=== PATIENT | male | born 1940 | race Caucasian/White ===

== ENCOUNTER → 2020-05-12 09:56 | Outpatient (REF) | payer MEDICARE, SELFPAY | LOC: HO.SL 09:56 | PROVIDERS: Visit Provider Internal Medicine | DX: G47.33 Obstructive sleep apnea (adult) (pediatric) (principal) | CPT/HCPCS: 95806 ==

== ENCOUNTER 2020-08-04 08:34 | Outpatient (REF) | payer MEDICARE, SELFPAY ==
[2020-08-04 10:05] LABS: Blood Urea Nitrogen 15 mg/dL (9-16); Estimated Glomerular Filt Rate > 60
[2020-08-04 10:37] LABS: Folate > 20.0 ng/mL (> or = 4.0); Vitamin B12 400 pg/mL (200-900)
== END 2020-08-04 08:35 | disposition home or self-care (01) ==
LOC: HO.LAB 08:34
PROVIDERS: PCP Internal Medicine; Visit Provider Psychiatry & Neurology Neurology
DX: G31.84 Mild cognitive impairment of uncertain or unknown etiology (principal)
CPT/HCPCS: 36415; 82565; 82607; 82746; 84520

== ENCOUNTER 2020-08-05 08:03 | Outpatient (REF) | payer MEDICARE, SELFPAY ==
--- NOTE | ~2020-08-05 | MR_ITS ---
EXAMINATION: MRI OF THE HEAD/ BRAIN WITHOUT CONTRAST CLINICAL INFORMATION: Mild cognitive impairment. COMPARISON: None TECHNIQUE: Routine unenhanced MRI of the brain. FINDINGS: Moderate diffuse commensurate prominence of ventricles and sulci is noted along with mild-moderate periventricular and subcortical white matter patchy T2 hyperintensities present in a nearly confluent configuration along the bodies of the lateral ventricles. No intracranial hemorrhage, tumors or acute infarcts are visualized. The Pickering ratio and callosal angle are within normal limits. No disproportionate prominence of the temporal horns of the lateral ventricles is identified. Susceptibility weighted images reveal no evidence of acute or chronic hemorrhage within the brain parenchyma. Normal flow-related signal intensity is visualized in the major intracranial vessels and dural sinuses. A right ocular lens extraction is identified. The craniocervical junction cerebellar tonsils are normal in configuration. No suspicious marrow abnormalities are noted. MR/MR head/brain wo con IMPRESSION: Mild white matter chronic small vessel ischemic changes. No evidence of significant chronic small vessel ischemic disease, normal pressure hydrocephalus or qualitative neurodegenerative hippocampal volume loss.
== END 2020-08-05 08:04 | disposition home or self-care (01) ==
LOC: HO.MRI 08:03
PROVIDERS: Visit Provider Psychiatry & Neurology Neurology
DX: G31.84 Mild cognitive impairment of uncertain or unknown etiology (principal)
CPT/HCPCS: 70551

== ENCOUNTER 2024-07-17 13:52 | Outpatient (AMB) | payer MEDICARE, SELFPAY ==
--- NOTE | 2024-07-17 13:53 | A.SPINEOV_ITS ---
Vital Signs 07/17/24 14:01 Height 5 ft 8 in Weight 150 lb BMI 22.8 Intake Visit Reasons: LBP Intake Note: Mr. Boland is here today c/o low back pain. [employer] Required: No Allergies No Known Allergies Allergy (Verified 07/17/24 14:02) Assessment & Plan Assessment & Plan (1) Lumbar stenosis with neurogenic claudication: Code(s): M48.062 - Spinal stenosis, lumbar region with neurogenic claudication Category: Medical Plan Dear colleague Thank you for referring Forest Boland to the office today with a chief complaint of right leg pain. HPI: This 83-year-old male was in excellent health until approximately 3 months ago when he developed debilitating pain from the right side of his back radiating to his thigh and jolyl. The pain comes with walking and standing and improves when he sits down or lays down. The pain is associated with tingling and numbness that disappear when he sits down. He denies weakness. Occasionally, he also has left-sided knee pain with standing and walking. He has been ambulating with a cane since a month as he noted that leaning forward provides relief. He tried Tylenol and Aleve without success. He had 2 epidural steroid injection that provided no relief. He was referred by pain management to discuss surgical decompression for symptoms of spinal stenosis. PMH: TIA 2 years ago, myasthenia gravis, osteopenia Medications: Pyridostigmine, prednisone, atorvastatin, tamsulosin, vitamin-D and calcium, fish oil, Metamucil, Tylenol, Aleve, baby aspirin Allergies: NKDA Social history: for 58 years. Nonsmoker Physical Exam: Pleasant male. He stands in a flexed position in the office. He can reproduce the right leg symptoms after 2 minutes of standing. There are no motor deficits or sensory deficits. No pathological reflexes. Radiological Studies: MRI done at [facility] on 06/06/2024 shows severe L3-4 central spinal stenosis and moderate L2-3 spinal stenosis. In addition there is [id number] left L5 foraminal stenosis and multilevel degenerative disc disease. Impression/Plan: This 83-year-old male is suffering predominantly from unilateral neurogenic claudication on the right side. The pain distribution fits the L3-4 level where severe spinal stenosis is present. This patient is an excellent candidate for a lumbar decompression L3-4, right-sided approach. I would also include the L2-3 region to address the moderate radiological stenosis. I discussed the procedure and expected outcome and he wants to proceed. He is scheduled for 08/22/2024. He will discontinue leave and baby aspirin 1 week prior to surgery. He will also discontinue his fish oil. Recently had a cardiac ultrasound of which we will obtain the report. This study was normal per patient. He will also get a preoperative clearance from his primary care physician. Thank you for allowing me to participate in your patients care. total time spent was 50 minutes in counseling ,coordination of plan, personal review of imaging, surgical decision making and subsequent plan Giuliano Sanchez MD, PhD [facility] Trained Neurosurgeon Director, [facility] Coding Level of Care Code New Pt Level 4 (83821) Diagnoses Lumbar stenosis with neurogenic claudication M48.062
[2024-07-17 14:01] VITALS: BMI 22.8
--- OUTSIDE RECORDS SUMMARY | 2024-07-17 16:27 | XMS_ITS | Clinical Summary ---
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 Active aspirin 81 mg EC tablet 1 TABLET DAILY Activ e predniSONE (DELTASONE) 1 mg tablet Take 2 tablets (2 mg total) by mouth 1 (one) time each day. Active MULTIVITAMIN ORAL qd Active calcium carbonate/kai min D3 (CALCIUM + D ORAL) qd Active DULoxetine (CYMBALTA) [address] capsule Take 1 capsule (20 mg total) by mouth 1 (one) time each day. Do not crush or chew. Active atorvastatin (LIPITOR) 10 mg tablet Take 1 tablet (10 mg total) by mouth at bedtime. 90 tablet 1 06/17/19 25 Active tamsulosin (FLOMAX) 0.4 mg 24 hr capsule TAKE 1 CAPSULE DAILY, 30 MINUTES AFTER SAME MEAL EVERY DAY 90 capsule 07/11/19 25 Active Additional Information Patient not taking.Reported on 07/15/2024 tamsulosin (FLOMAX) 0.4 mg 24 hr capsule TAKE 1 CAPSULE DAILY, 30 MINUTES AFTER SAME MEAL EVERY DAY 90 capsule 04/12/20 24 025 Discontinued buprenorphine (BUTRANS) 15 mcg/hour Place 1 patch on the skin 1 (one) time per week. Max Daily Amount: 1 patch 025 Discontinued Active Problems Problem Noted Date Diagnosed Date TIA (transient ischemic attack) 04/10/2024 Assessment & Plan (04/10/2024 10:09 AM EST): Given the very short duration of his symptoms and negative workup in the ER, lower suspicion for a true TIA but I would like to get the opinion of his neurologist. I will request records from his most recent neurology notes which unfortunately I am unable to visualize on the current EMR. If TIA suspicion is high, it might be worth doing further workup with at least a 30-day R OCT looking for occult arrhythmias. I would also inquire with his neurologist about whether or not to upgrade him to monotherapy with Plavix and increase statin dose. Thankfully he has not had any recurrent symptoms. Mixed hyperlipidemia 04/10/2024 Assessment & Plan (04/10/2024 10:09 AM EST): Most recent lipid panel indicates good cholesterol control on low-dose simvastatin but triglycerides are elevated, continue omega-3 supplements and continue to modify diet-observe a low refined carbohydrate, low sugar diet, continue regular aerobic exercise Elevated blood-pressure read ing without diagnosis of hypertension 11/23/2022 Overview (02/23/2024): On my recheck, the patient had improvement. He reports blood pressures at home are on the average in the 120 systolic with normal diastolics. Continue to monitor. Assessment & Plan (04/10/2024 10:09 AM EST): Orders: ECG 12 lead Moderate aortic stenosis 09/08/2022 Overview (02/23/2024): - Echocardiogram performed for atypical chest pain and murmur on 08/26/2022 showed mild, concentric left ventricular hypertrophy with hyperdynamic LV systolic function and normal regional wall motion, normal LV cavity size, ejection fraction 65 to 70%, normal RV size and systolic function, moderate aortic stenosis with calculated aortic valve area of 1.2 cm?? with a dimensionless index of 0.32 and mean gradient of 21 mmHg, normal RV size and systolic function Last Assessment & Plan: The patient is asymptomatic from a cardiovascular standpoint with unchanged moderate aortic stenosis. He recently had a hospitalization for difficulty articulating himself/aphasia that lasted for 30 to 60 seconds. Brain imaging including CT head, CTA head/neck, and MRI brain unremarkable. His echocardiogram is unchanged when compared to 2022. It is Holter monitor showed sinus rhythm. At this point, would defer further workup to the neurology team. Will cancel his echocardiogram planned for November as he just had an updated a couple of weeks ago. Assessment & Plan (04/10/2024 10:09 AM EST): Will plan for updated surveillance echo in 1 month for a yearly routine surveillance. I will follow-up on these results and report any major abnormalities. His valve does not sound severely narrow by exam. Orders: Transthoracic echocardiogram (TTE) complete with PRN contrast, bubble, strain, and 3D order panel; Future Abnormal brain CT 06/23/2022 Neck pain 06/20/2022 Polyp of colon 03/14/2022 Overview (02/23/2024): solitary, GI recommended repaet colonoscopy in 5 years, 2026 Elevated fasting glucose 09/08/2021 Overview (02/23/2024): Borderline 102 mg/dL Last Assessment & Plan: Reviewed the importance of low carbohydrate diet and avoidance of sugary foods Malignant melanoma of skin 09/08/2021 Overview (02/23/2024): [place] derm Ankylosing spondylitis 11/20/2020 Overview (02/23/2024): Notable in cervical and thoracic spine on xray Memory deficits 11/02/2020 BONIFACIO (obstructive sleep apnea) 06/04/2020 Benign non-nodular prostatic hyperplasia without lower urinary tract symptoms 11/07/2016 Occipital neuralgia 08/24/2010 Cervicocranial syndrome 07/19/2010 Degenerative arthritis of cervical spine 010 Anxiety disorder 06/19/2007 Pure hypercholesterolemia 01/04/2007 Overview (02/23/2024): Last Assessment & Plan: Well controlled lipid profile. Continue dietary modification. Myasthenia gravis without exacerbation 6 Overview (02/23/2024): ~ 2004: On prednisone - tapered to 3 times a week follows with Dr. Lopez. Benign neoplasm of colon 11/29/2005 Overview (02/23/2024): Colonoscopy 11.29.05: tubular adenoma times two. Negative colonoscopy 12/08/2008. 7 mm polyp 02/17/2014: Malignant neoplasm of skin 11/24/2005 Overview (02/23/2024): BCC 12/16 right clavicle (nodualr & metatypical type) 05/13 Right leg Left thigh Midback IMO update Encounters Date Type Department Care Team Description 07/15/2024 8:45 AM EDT Office Visit Adult Medicine [address] [phone] Kaitlin Hair MD Weight loss (Primary Dx); Mixed hyperlipidemia; Anxiety disorder, unspecified type; Moderate aortic stenosis; Pure hypercholesterolemia; Osteoarthritis of lumbar spine, unspecified spinal osteoarthritis complication status; Elevated fasting glucose 06/21/2024 11:00 AM EST Ancillary Procedure [facility] [address] [place] [address] [place] [phone] Moderate aortic stenosis 06/12/[address] [phone] Kaitlin Hair MD provider call back 06/10/2024 Telephone Adult [address] [phone] Crispin Tellez PA Request For Order(s); Provider Call Back 06/06/2024 9:42 AM EST - 06/06/2024 11:59 PM EST Hospital Encounter Radiology Department - [address] [phone] Right thigh pain; Ankylosing spondylitis, unspecified site of spine (CMS/HCC); History of melanoma; Chronic low back pain, unspecified back pain laterality, unspecified whether sciatica present Discharge Disposition: Home or Self Care 05/30/2024 11:00 AM EST Office Visit Adult Medicine [address] [phone] Crispin Tellez PA Right thigh pain (Primary Dx); Ankylosing spondylitis, unspecified site of spine ([facility]/HCC); History of melanoma; Chronic low back pain, unspecified back pain laterality, unspecified whether sciatica present 05/16/2024 12:20 PM EST - 05/16/2024 11:59 PM EST Hospital Encounter [address] [phone] Pain of right thigh; Right hip pain Discharge Disposition: Home or Self Care 05/16/2024 12:20 PM EST - 05/16/2024 11:59 PM EST Hospital Encounter [address] [phone] Pain of right thigh; Right hip pain Discharge Disposition: Home or Self Care 05/16/2024 12:15 PM EST - 05/16/2024 11:59 PM EST Hospital Encounter XR - [address] [phone] Pain of right thigh; Right hip pain Discharge Disposition: Home or Self Care 05/16/2024 11:30 AM EST Office Visit Adult [address] [phone] Crispin Tellez PA Pain of right thigh (Primary Dx); Right hip pain 05/03/2024 Telephone Adult Medicine [address] [phone] Kaitlin Hair MD Pain from Last 3 Months Immunizations Name Administration Dates Next Due H1N1 Inj Preservative Free 06/10/2009 Influenza Quadravalent, 0.5m l (Fluzone High-dose) 65yo and older 02/09/2023 Influenza trivalent, 0.5mL ( Fluad) 65yo and older 02/03/2022,01/27/2021,01/22/2020,01/24,01/18/2018,03/03/2017,02/26/2016 Influenza trivalent, 0.5mL, preservative free (Fluarix; FluLaval; Fluzone) ages 6mo and older (Afluria) 3 years and older 03/01/2013,04/02/2012,04/29/2011,01/26,02/22/2008,04/16/2007 Influenza, Unspecified 02/03/2014 Pfizer (ages 12 & older) Biv alent, COVID-19 02/20/2022 Pneumococcal conjugate 13 va lent (Prevnar 13, PCV13) 2mo and older 02/26/2016 Pneumococcal polysaccharide 23 valent (Pneumovax 23) 2yo and older 03/03/2017,04/16/2007 Td Tetanus diptheria (Tdvax) 7yo and older 07/04/2002 Td, Unspecified 07/04/2002 Tdap Tetanus diptheria acell ular pertussis (Boostrix; Adacel) 7yo and older 06/26/2023,04/01/2013 Zoster Live 03/20/2012 Zoster recombinant (Shingrix ) 19yo and older 02/07/2019 Surgical History Surgery Date Site/Laterality Comments OTHER SURGICAL HISTORY PROCEDURE: HISTORICAL MELANOMA COLONOSCOPY 2013 PROCEDURE: HISTORICAL COLONOSCOPY; COMMENT: 7 mm descending colon polyp: tubular adenoma COLONOSCOPY 12/08/2008 PROCEDURE: HISTORICAL COLONOSCOPY; COMMENT: Normal COLONOSCOPY 11/29/2005 PROCEDURE: HISTORICAL COLONOSCOPY; COMMENT: tubular adenoma x 2. COLONOSCOPY 07/25/2018 PROCEDURE: HISTORICAL COLONOSCOPY; COMMENT: 12 mm sigmoid colon polyp; path: tubulovillous adenoma. Medical History Medical History Date Comments Myasthenia gravis without exacerbation (CMS/[facility]) 03/28/2006 DX:Myasthenia gravis without exacerbation (HCC) Historical Medical DX DX:Other a nd unspecified malignant neoplasm of skin of other and unspecified parts of face Anxiety disorder 06/19/2007 DX:Anxiety diso rder Myasthenia gravis without exacerbation (CMS/HCC) 03/28/2006 DX:Myasthenia gravis without exacerbation ([facility]); COMMENT: No meds, follows with Dr. Pham. Osteopenia DX:Osteopenia Ankylosing spondylitis ([facility]) 11/20/2020 DX:Ankylosing spondylitis ([facility]); COMMENT: Notable in cervical and thoracic spine on xray Malignant melanoma of skin ([facility]/HCC) 09/08/2021 DX:Malignant melanoma of skin (HCC) Family History Medical History Relation Name Comments No Known Problems Daughter Other: irregular heart, CHF Father age 90 Other: at age 34-35 fro m heart disease, no details Maternal Grandfather Other: dementia Mother developped a t age 85-86 Heart attack Paternal Grandmother age 75 Autoimmune disease Neg Hx Breast cancer Neg Hx Colon cancer Neg Hx Coronary artery disease Neg Hx Diabetes Neg Hx Heart failure Neg Hx Hyperlipidemia Neg Hx Hypertension Neg Hx Mental illness Neg Hx Prostate cancer Neg Hx Sleep apnea Neg Hx Thyroid disease Neg Hx Relation Name Status Comments Daughter Alive Father Maternal Grandfather Mother Paternal Grandmother Social History Tobacco Use Types Packs/Day Years Used Date Smoking Tobacco: Never Smokeless Tobacco: Never Tobacco Cessation:Counseling Given: Not Answered Alcohol Use Standard Drinks/Week Comments Yes 0 (1 standard drink = 0.6 oz pur e alcohol) Sex and Gender Information Value Date Recorded Sex Assigned at Not on file Legal Sex Male 3:44 AM EST Gender Identity Not on file Sexual Orientation Not on file Obstetrics History Last Filed Vital Signs Vital Sign Reading Time Taken Comments Blood Pressure 132/70 07/15/2024 8:42 AM EDT Pulse 80 07/15/2024 8:42 AM EDT Temperature 35.9 ??C (96.6 ??F) 07/15/2024 8:42 AM ED T Respiratory Rate 20 07/15/2024 8:42 AM EDT Oxygen Saturation 97% 05/30/2024 10:52 AM EST Inhaled Oxygen Concentration - - Weight 73.5 kg (162 lb) 07/15/2024 8:42 AM EDT Height 172.7 cm (5' 8 ) 07/15/2024 8:42 AM EDT Body Mass Index 24.63 07/15/2024 8:42 AM EDT Plan of Treatment Upcoming Encounters Date Type Department Care Team (Late st Contact Info) Description 08/26/2024 11:00 AM EDT Office Visit General Surgery - [place] [address] [facility] [address] [place] [phone] Korey Quintanilla, DO [address] [facility] [address] [place] [address] 09/18/2024 9:15 AM EDT Office Visit Adult Medicine [facility] [place] [address] [place] [phone] Crispin Tellez PA [address] [place] [address] 01/01/2025 9:50 AM EDT Office Visit [facility] [address] [facility] [address] [place] [phone] Layla Latham MD [address] [place] [address] Health Maintenance Due Date Last Done Comments RSV Immunization Patients 60+ Years Old (1 - 1-dose 75+ series) 2017 Zoster Vaccines (2 of 2) 04/04/2019 02/07/2019, 03/08 Social Influencers of Health Screening 04/16/2022 Falls Risk Assessment 06/26/2024 06/26/2023 Depression Screening 08/02/2024 08/03/2023 Medicare Annual Wellness Visit 08/02/2024 08/03/2023 Colorectal Cancer Screening: Colonoscopy 01/20/2027 01/20/2022 Cholesterol Screening (Lipid Panel) 02/12/2029 02/13/2024, 02/13/2024 DTaP,Tdap,and Td Vaccines (5 - Td or Tdap) 06/26/2033 06/26/2023, 04/01/2013, 07/04/2002, Additional history exists Pneumococcal Vaccine: 50+ Years Completed 03/03/2017, 02/26/2016, 04/16/2007 COVID-19 Vaccine Completed 02/13/2024, 09/2022, 02/20/2022, Additional history exists Influenza Vaccine Completed 02/13/2024, , 02/03/2022, Additional history exists HIB Vaccines Aged Out No longer eligi ble based on patient's age to complete this topic HPV Vaccines Aged Out No longer eligi ble based on patient's age to complete this topic Hepatitis A Vaccines Aged Out No long er eligible based on patient's age to complete this topic Hepatitis B Vaccines Aged Out No long er eligible based on patient's age to complete this topic IPV Vaccines Aged Out No longer eligi ble based on patient's age to complete this topic MMR Vaccines Aged Out No longer eligi ble based on patient's age to complete this topic Meningococcal ACWY Vaccine Aged Out N o longer eligible based on patient's age to complete this topic Meningococcal B Vacine Aged Out No lo nger eligible based on patient's age to complete this topic RSV Immunization Patients Under 20 months Aged Out No longer eligible based on patient's age to complete this topic Varicella Vaccines Aged Out No longer eligible based on patient's age to complete this topic Procedures Procedure Name Priority Date/Time Associated Diagnosis Comments TRANSTHORACIC ECHOCARDIOGRAM (TTE) COMPLETE Routine 06/21/2024 11:45 AM EST Moderate aortic stenosis MR LUMBAR SPINE WO CONTRAST Routine 06/06/2024 10:34 AM EST Right thigh pain Ankylosing spondylitis, unspecified site of spine (CMS/[facility]) History of melanoma Chronic low back pain, unspecified back pain laterality, unspecified whether sciatica present COMPLETE BLOOD COUNT Routine 05/30/2024 11:50 AM EST Right thigh pain COMPREHENSIVE METABOLIC PANEL Routine 05/30/2024 11:50 AM EST Right thigh pain SEDIMENTATION RATE Routine 05/30/2024 11 :50 AM EST Right thigh pain C-REACTIVE PROTEIN Routine 05/30/2024 11 :50 AM EST Right thigh pain D-DIMER STAT 05/30/2024 11:50 AM EST Right thigh pain XR HIP 2-3 VIEWS RIGHT Routine 12:38 PM EST Pain of right thigh Right hip pain XR FEMUR 2+ VIEWS RIGHT Routine 05/16/2024 12:38 PM EST Pain of right thigh Right hip pain XR LUMBAR SPINE 4+ VIEWS Routine 05/16/2024 12:37 PM EST Pain of right thigh Right hip pain LIPID PANEL Routine 02/13/2024 DEPRESSION SCREENING Routine 08/03/2023 FALLS RISK ASSESSMENT Routine 06/26/2023 COLONOSCOPY Routine 01/20/2022 from Last 3 Months or Most Recently Relevant to Health Maintenance Results * (ABNORMAL) TRANSTHORACIC ECHOCARDIOGRAM (TTE) COMPLETE (06/21/2024 11:45 AM EST) Left Atrium [place] 5.8 cm CV PACS Left Atrium [place] 4.9 cm CV PACS LA Area Sys (A2C) 20 cm2 CV PACS LA Area Sys (A4C) 15 cm2 CV PACS LA Volume (BP) 48 mL CV PACS RA Area 12.6 cm2 CV PACS RA 2D Volume 27 mL CV PACS AV Mean Gradient 30 mmHg CV PACS Ao VTI 80.4 cm CV PACS AV Peak [place] 3.5 m/s CV PACS AV Peak Gradient 50 mmHg CV PACS AV Area Continuity Equation 1.3 cm2 CV PACS AV Area Peak Velocity 1.1 cm2 CV PACS Aortic Sinus Valsalva 3.8 cm CV PACS IVC Proximal 1.7 cm CV PACS LVIDD 3.9(A) 4.2 - 5.8 cm CV PACS LVIDS 2.1(A) 2.5 - 4.0 cm CV PACS LVOT Diameter 2.2 cm CV PACS LVOT Mean [place] 0.7 m/s CV PACS LVOT Mean Grad 2 mmHg CV PACS LVOT Peak VTI 28.5 cm CV PACS LVOT Peak [place] 1.0 m/s CV PACS LVOT Peak Gradient 4 mmHg CV PACS MV E' Tissue Velocity Lateral 5 cm/s CV PACS MV E' Tissue Velocity Septal 5 cm/s CV PACS LVOT Area 3.8 cm2 CV PACS LVOT Stroke Volume 108 mL CV PACS MV Deceleration [place] 4.5 m/s2 CV PACS E Wave Deceleration Time 180 119 - 242 ms CV PACS MV PHT 53 ms CV PACS MV Peak A [place] 1.43 m/s CV PACS MV Peak E [place] 0.82 m/s CV PACS MV Mean Gradient 5 mmHg CV PACS MV VTI 27.9 cm CV PACS Mitral Valve Max Velocity 1.6 m/s CV PACS MV Peak Gradient 11 mmHg CV PACS MV Area PHT 2.4 cm2 CV PACS MV Area Continuity Equation 3.9 cm2 CV PACS RV Diastolic Basal Dimension 2.8 2.5 - 4.1 cm CV PACS RV S' 11 cm/s CV PACS TAPSE 18 mm CV PACS E/E' Ratio Septal 16 CV PACS E/E' Ratio Averaged 16 CV PACS LVOT:AV VTI Index 0.35 CV PACS FS 46 % CV PACS MV VTI:LVOT VTI ratio 1.0 CV PACS LVOT flow 266 mL/s CV PACS AV Velocity Ratio 0.29 CV PACS E/A Ratio 0.6 CV PACS E/E' Ratio Lateral 16 CV PACS BSA 1.83 m2 CV PACS LA Volume Index (BP) 26 mL/m2 CV PACS LVIDD Index 2.13 cm/m2 CV PACS LVIDS Index 1.15 cm/m2 CV PACS LVOT Stroke Index 59 mL/m2 CV PACS RA 2D Volume Index 15(A) 18 - 32 mL/m2 CV PACS [place] Index (VTI) 0.74 cm2/m2 CV PACS [place] Index (Pk [place]) 0.60 cm2/m2 CV PACS Est. RA Pressure 3 mmHg CV PACS Anatomical Region Laterality Modality Ultrasound Narrative 06/30/2024 3:32 PM EST ?Left ventricle cavity size is normal. ??There is normal left ventricular regional wall motion. ??Left ventricular systolic function is hyperdynamic with an ejection fraction over 70%. ??There is a mid cavitary gradient of 17 mmHg that increases to 32 mmHg with Valsalva. ?Right ventricle cavity is normal. Right ventricular systolic function is normal. ?Aortic valve demonstrates moderate stenosis. ??See measurements below. ?? There is trace aortic insufficiency. ?Mitral valve demonstrates possible mild stenosis. ??Though leaflet tips were not well-visualized so increased gradients across the valve could be secondary to hyperdynamic state. ??There is trace aortic insufficiency. ?Compared to prior study from 05/30/2023, findings are roughly unchanged including incidental note of a likely simple liver cyst. ??Ascending aorta was not well-visualized on today's study for comparison. Stable moderate aortic stenosis. ??Hyperdynamic left ventricular systolic function with mid cavitary gradients as above. Left Ventricle Left ventricle cavity size is normal. Wall thickness was not well visualized due to off axis parasternal views. Systolic function is hyperdynamic with an ejection fraction over 70%. There is mid cavitary gradient of 17mmHg at rest that increases to 32mmHg with valsalva. There are no regional LV wall motion abnormalities. Unable to assess diastolic function. Left atrial pressure is inconclusive. Right Ventricle Right ventricle cavity appears normal. Systolic function is normal. Left Atrium Left atrium cavity size is normal. Right Atrium Right atrium cavity is normal. IVC/SVC RA pressures is estimated to be 3 mmHg (IVC diameter <21 mm and decreases >50% during inspiration). Mitral Valve The leaflets are thickened. There is moderate to severe annular calcification. There is trace regurgitation. There is may be mild stenosis. MV valve area P 1/2 method is 2.4 cm2. MV mean gradient is 5 mmHg. However valve was not well visualized on 2D imaging so increased gradients could just be related to hyperdynamic state. Tricuspid Valve Tricuspid valve structure is normal. Tricuspid regurgitation is inadequate for estimation of right ventricular systolic pressure. Aortic Valve The aortic valve is trileaflet. DIffuse thickening of the aortic valve leaflets with reduced excursion. There is no regurgitation. There is moderate stenosis. The mean gradient is 30 mmHg. The aortic valve area by continuity equation is 1.3 cm2. Pulmonic Valve The pulmonic valve was not well visualized. There is no doppler evidence of significant stenosis or insufficiency. Ascending Aorta Upper normal aortic sinus. Ascending and transverse aorta not well visualized. Pericardium Pericardium appears normal. Incidental note of a large, hypoechoic structure seen in the liver parenchyma? most consistent with a simple liver cyst. It measures about 3.4 x 4.6 cm. There is no pericardial effusion. Study Details Overall the study quality was technically difficult. us Layla Latham MD CV ECHO PROCEDURES Final Result * MR Lumbar Spine wo Contrast (06/06/2024 10:34 AM EST) Anatomical Region Laterality Modality L-spine, Spine Magnetic Resonan ce 06/06/2024 11:1 2 AM EST Impressions 06/06/2024 4:18 PM EST Multilevel bony and discogenic degenerative changes as described. Severe central disc canal stenosis at L3-4. Disc contacts the exiting L3 nerve roots. Probable compression bilateral L4 nerve roots in the lateral recesses. Moderate central canal stenosis at L2-3. Disc protrusion/bulging contacts the bilateral L2 nerve roots as described. Mild central canal stenosis at L1-2. Compression left L5 nerve root. -------- FINAL REPORT -------- Dictated By: Dominga Sapp Dictated Date: 06/06/2024 11:12 ET Assigned Physician: Dominga Sapp Reviewed and Electronically Signed By: Dominga Sapp Signed Date: 06/06/2024 16:18 ET Workstation ID: [id number] Transcribed By: Self Edit Transcribed Date: 06/06/2024 15:34 ET Narrative 06/06/2024 4:18 PM EST MR LUMBAR SPINE WO CONTRAST MR OF THE LUMBAR SPINE WITHOUT CONTRAST HISTORY: ??Low back pain greater than 6 weeks. Lumbar radiculopathy. Technique: MR of the lumber spine was performed without contrast utilizing the standard departmental protocol. COMPARISON: MRI lumbar spine 08/08/2023. FINDINGS: Conus medullaris terminates at the [L1-2] level, and demonstrates normal signal. There is no abnormal thickening or clumping of the cauda equina nerve roots. There is normal alignment of the lumbar spine. There is moderate compression of the T12 vertebral body, unchanged. There hemangiomas in several vertebral bodies. There is signal change of the bone marrow the endplates at L4-5 consistent with degenerative change. There is disc desiccation at every level. At T12-L1, there is disc bulging and slight decreased disc height. No neural foraminal narrowing or central canal stenosis. At L1-L2, there is disc bulging with small central disc protrusion and bilateral foraminal disc bulging with moderately severe right neural foraminal narrowing and moderate left neural foraminal narrowing. There is mild facet hypertrophy. There is mild central canal stenosis. At L2-L3, there is slight retrolisthesis of L2 on L3. There is generalized disc bulging with bilateral lateral disc bulging/protrusion, left greater than right, which contacts the exiting L2 nerve roots bilaterally. There is moderately severe bilateral neural foraminal narrowing. There is ligamentous bulging and mild facet hypertrophy. There is bilateral lateral recess narrowing. There is moderate central canal stenosis with bunching of the nerve roots in the canal. There is flattening the posterior aspect of the dural tube by epidural fat. At L3-L4, there is slight anterolisthesis of L3 on 4. There is generalized disc bulging with small central disc protrusion and bilateral lateral disc bulging which contacts the exiting L3 nerve roots. There is moderately severe bilateral neural foraminal narrowing, ligamentous bulging and moderate facet hypertrophy. Bilateral lateral recess stenosis with likely compression of the L4 nerve roots bilaterally. There is severe central canal stenosis with complete loss of CSF space. There is flattening of the posterior aspect of the dural tube by epidural fat. At L4-L5, ??there is severe decreased disc height. There is disc bulging with exophytic endplate spurring and central disc protrusion. Moderate bilateral facet hypertrophy. Moderate bilateral neural foraminal narrowing. No central canal stenosis At L5-S1, there is moderate to severe decreased disc height. There is disc bulging and endplate spurring with central/right paracentral disc/osteophyte complex. Moderate right neural foraminal narrowing and severe left neural foraminal narrowing with compression of the left L5 nerve root. No central canal stenosis. There is mild facet hypertrophy. Procedure Note Dominga Sapp MD - 06/06/2024 MR LUMBAR SPINE WO CONTRAST MR OF THE LUMBAR SPINE WITHOUT CONTRAST HISTORY: Low back pain greater than 6 weeks. Lumbar radiculopathy. Technique: MR of the lumber spine was performed without contrast utilizingthe standard departmental protocol. COMPARISON: MRI lumbar spine 08/08/2023. FINDINGS: Conus medullaris terminates at the [L1-2] level, anddemonstrates normal signal. There is no abnormal thickening or clumping ofthe cauda equina nerve roots. There is normal alignment of the lumbarspine. There is moderate compression of the T12 vertebral body, unchanged.There hemangiomas in several vertebral bodies. There is signal change ofthe bone marrow the endplates at L4-5 consistent with degenerative change.There is disc desiccation at every level. At T12-L1, there is disc bulging and slight decreased disc height. Noneural foraminal narrowing or central canal stenosis. At L1-L2, there is disc bulging with small central disc protrusion andbilateral foraminal disc bulging with moderately severe right neuralforaminal narrowing and moderate left neural foraminal narrowing. There ismild facet hypertrophy. There is mild central canal stenosis. At L2-L3, there is slight retrolisthesis of L2 on L3. There is generalizeddisc bulging with bilateral lateral disc bulging/protrusion, left greaterthan right, which contacts the exiting L2 nerve roots bilaterally. Thereis moderately severe bilateral neural foraminal narrowing. There isligamentous bulging and mild facet hypertrophy. There is bilateral lateralrecess narrowing. There is moderate central canal stenosis with bunchingof the nerve roots in the canal. There is flattening the posterior aspectof the dural tube by epidural fat. At L3-L4, there is slight anterolisthesis of L3 on 4. There is generalizeddisc bulging with small central disc protrusion and bilateral lateral discbulging which contacts the exiting L3 nerve roots. There is moderatelysevere bilateral neural foraminal narrowing, ligamentous bulging andmoderate facet hypertrophy. Bilateral lateral recess stenosis with likelycompression of the L4 nerve roots bilaterally. There is severe centralcanal stenosis with complete loss of CSF space. There is flattening of theposterior aspect of the dural tube by epidural fat. At L4-L5, there is severe decreased disc height. There is disc bulgingwith exophytic endplate spurring and central disc protrusion. Moderatebilateral facet hypertrophy. Moderate bilateral neural foraminalnarrowing. No central canal stenosis At L5-S1, there is moderate to severe decreased disc height. There is discbulging and endplate spurring with central/right paracentraldisc/osteophyte complex. Moderate right neural foraminal narrowing andsevere left neural foraminal narrowing with compression of the left [id number] root. No central canal stenosis. There is mild facet hypertrophy. IMPRESSION: Multilevel bony and discogenic degenerative changes as described. Severe central disc canal stenosis at L3-4. Disc contacts the exiting [id number] roots. Probable compression bilateral L4 nerve roots in the lateralrecesses. Moderate central canal stenosis at L2-3. Disc protrusion/bulging contactsthe bilateral L2 nerve roots as described. Mild central canal stenosis at L1-2. Compression left L5 nerve root. -------- FINAL REPORT -------- Dictated By: Dominga Sapp Dictated Date: 06/06/2024 11:12 ET Assigned Physician: Dominga Sapp Reviewed and Electronically Signed By: Dominga Sapp Signed Date: 06/06/2024 16:18 ET Workstation ID: [id number] Transcribed By: Self Edit Transcribed Date: 06/06/2024 15:34 ET Crispin MASON IMG MRI PROCEDURES Final Result * Sedimentation rate (05/30/2024 11:50 AM EST) [facility] Sed Rate 6 0 - 20 mm/hr LAB HEMETOLOGY METHOD 05/30/2024 2:16 PM EST [facility] Blood Venous blood specimen / Unknown Venipuncture / Unknown 05/30/2024 11:50 AM EST 05/30/2024 11:50 AM EST Crispin MASON LAB BLOOD ORDERABLES Fin al Result [facility] [address] [place] [address], * D-Dimer (05/30/2024 11:50 AM EST) [facility] D-Dimer, Quant (D-DU) 224 <=230 ng/mL DDU LAB COAGULATION METHOD 05/30/2024 1:52 PM EST [facility] Blood Venous blood specimen / Unknown Venipuncture / Unknown 05/30/2024 11:50 AM EST 05/30/2024 11:50 AM EST Narrative [facility] - 05/30/2024 1:52 PM EST D-Dimer <230 ng/mL (D-Dimer units) is the threshold for exclusion of DVT/PE. D-Dimer may be elevated in: Critically ill, severely infected, trauma patients, DIC, acute CVA, acute HI, unstable angina, AF, old age, , and smoking. D-Dimer may be decreased with: Initiation of heparin therapy and oral anticoagulants. us Crispin MASON LAB BLOOD ORDERABLES Fin al Result [facility] [address] [place] [address], * (ABNORMAL) Complete blood count (05/30/2024 11:50 AM EST) [facility] WBC 10.5 4.8 - 10.8 K/mcL LAB HEMETOLOGY METHOD 05/30/2024 2:05 PM [facility] RBC 4.70 4.50 - 5.50 M/mcL LAB HEMETOLOGY METHOD 05/30/2024 2:05 PM [facility] Hemoglobin 14.8 13.5 - 17.5 g/dL LAB HEMETOLOGY METHOD 05/30/2024 2:05 PM [facility] Hematocrit 45.4 42.0 - 54.0 % LAB HEMETOLOGY METHOD 05/30/2024 2:05 PM [facility] MCV 96.4 79.0 - 98.0 FL LAB HEMETOLOGY METHOD 05/30/2024 2:05 PM [facility] MCH 31.4 27.0 - 32.0 pcg LAB HEMETOLOGY METHOD 05/30/2024 2:05 PM [facility] MCHC 32.6 32.0 - 37.0 g/dL LAB HEMETOLOGY METHOD 05/30/2024 2:05 PM [facility] RDW 12.6 11.0 - 15.0 % LAB HEMETOLOGY METHOD 05/30/2024 2:05 PM [facility] Platelets 243 130 - 400 K/mcL LAB HEMETOLOGY METHOD 05/30/2024 2:05 PM EST [facility] MPV 11.3(H) 7.0 - 11.0 FL LAB HEMETOLOGY METHOD 05/30/2024 2:05 PM EST [facility] NRBC 0.0 <1.0 % LAB HEMETOLOGY METHOD 05/30/2024 2:05 PM EST [facility] NRBC Absolute 0.00 <0.10 K/mcL LAB HEMETOLOGY METHOD 05/30/2024 2:05 PM EST [facility] Blood Venous blood specimen / Unknown Venipuncture / Unknown 05/30/2024 11:50 AM EST 05/30/2024 11:50 AM EST Crispin MASON LAB BLOOD ORDERABLES Fin al Result Performing Organization Address [facility]/ZIP Co de Phone Number [facility] [address] [place] [address], [place] [phone] * C-reactive protein (05/30/2024 11:50 AM EST) C-Reactive Protein <0.29 <=0.50 mg/dL LAB CHEMISTRY METHOD 05/30/2024 2:20 PM [facility] Blood Venous blood specimen / Unknown Venipuncture / Unknown 05/30/2024 11:50 AM EST 05/30/2024 11:50 AM EST Crispin MASON LAB BLOOD ORDERABLES Fin al Result Performing Organization Address City/[facility]/ZIP Co de Phone Number [facility] [address] [place] [address], [place] [phone] * Comprehensive metabolic panel (05/30/2024 11:50 AM EST) Sodium 140 133 - 145 mmol/L LAB CHEMISTRY METHOD 05/30/2024 2:20 PM [facility] Potassium 4.0 3.5 - 5.5 mmol/L LAB CHEMISTRY METHOD 05/30/2024 2:20 PM [facility] Chloride 109 96 - 110 mmol/L LAB CHEMISTRY METHOD 05/30/2024 2:20 PM [facility] CO2 25 21 - 32 mmol/L LAB CHEMISTRY METHOD 05/30/2024 2:20 PM [facility] Anion Gap 6 3 - 11 LAB CHEMISTRY METHOD 05/30/2024 2:20 PM [facility] Glucose 91 70 - 100 mg/dL LAB CHEMISTRY METHOD 05/30/2024 2:20 PM [facility] BUN 14 5 - 25 mg/dL LAB CHEMISTRY METHOD 05/30/2024 2:20 PM [facility] Creatinine 0.98 0.70 - 1.30 mg/dL LAB CHEMISTRY METHOD 05/30/2024 2:20 PM [facility] eGFR 77 >=60 mL/min/1. 73m2 LAB CHEMISTRY METHOD 05/30/2024 2:20 PM [facility] Comment:Calculation based on the??Chronic Kidney Disease Epidemiology Collaboration (CKD-EPI) equation refit??without adjustment for race. BUN/Creatinine Ratio 14.3 LAB CHEMISTRY METHOD 05/30/2024 2:20 PM [facility] Calcium 9.8 8.5 - 10.5 mg/dL LAB CHEMISTRY METHOD 05/30/2024 2:20 PM [facility] AST (SGOT) 27 10 - 42 unit/L LAB CHEMISTRY METHOD 05/30/2024 2:20 PM [facility] ALT (SGPT) 38 10 - 60 unit/L LAB CHEMISTRY METHOD 05/30/2024 2:20 PM [facility] Alkaline Phosphatase 69 42 - 121 unit/L LAB CHEMISTRY METHOD 05/30/2024 2:20 PM [facility] Total Protein 7.4 6.0 - 8.0 g/dL LAB CHEMISTRY METHOD 05/30/2024 2:20 PM EST [facility] Albumin 4.1 3.2 - 5.0 g/dL LAB CHEMISTRY METHOD 05/30/2024 2:20 PM EST [facility] Total Bilirubin 0.5 0.0 - 1.4 mg/dL LAB CHEMISTRY METHOD 05/30/2024 2:20 PM EST [facility] Blood Venous blood specimen / Unknown Venipuncture / Unknown 05/30/2024 11:50 AM EST 05/30/2024 11:50 AM EST us Crispin MASON LAB BLOOD ORDERABLES Fin al Result [facility] [address] [place] [address], * XR Hip 2-3 Views Right (05/16/2024 12:38 PM EST) Anatomical Region Laterality Modality Lower Extremities, Hip Right Radiograp hic Imaging 05/16/2024 10:3 9 PM EST Impressions 05/16/2024 10:42 PM EST Minimal degenerative changes involving the right hip. POS - [id number] -------- FINAL REPORT -------- Dictated By: Vanita Nevarez Dictated Date: 05/16/2024 22:39 ET Assigned Physician: Vanita Nevarez Reviewed and Electronically Signed By: Vanita Nevarez Signed Date: 05/16/2024 22:42 ET Workstation ID: [id number] Transcribed By: Self Edit Transcribed Date: 05/16/2024 22:39 ET Narrative 05/16/2024 10:42 PM EST EXAM: Right hip x-ray. HISTORY: Right hip pain. COMPARISON: None VIEWS: AP and frog-lateral views of the right hip performed. FINDINGS: ?? Right hip joint space is maintained. ??Very mild periarticular spurring. No evidence of an acute fracture or dislocation. ??Pelvic ring is intact. ??No destructive bone lesion. ??Severe degenerative changes in the imaged lumbar spine. Procedure Note Vanita Nevarez MD - 05/16/2024 EXAM: Right hip x-ray. HISTORY: Right hip pain. COMPARISON: None VIEWS: AP and frog-lateral views of the right hip performed. FINDINGS: Right hip joint space is maintained. Very mild periarticular spurring. Noevidence of an acute fracture or dislocation. Pelvic ring is intact. Nodestructive bone lesion. Severe degenerative changes in the imaged lumbarspine. IMPRESSION: Minimal degenerative changes involving the right hip. POS - [id number] -------- FINAL REPORT -------- Dictated By: Vanita Nevarez Dictated Date: 05/16/2024 22:39 ET Assigned Physician: Vanita Nevarez Reviewed and Electronically Signed By: Vanita Nevarez Signed Date: 05/16/2024 22:42 ET Workstation ID: [id number] Transcribed By: Self Edit Transcribed Date: 05/16/2024 22:39 ET us Crispin MASON IMG XR PROCEDURES Final Result * XR Femur 2+ Views Right (05/16/2024 12:38 PM EST) Anatomical Region Laterality Modality Lower Extremities, Femur Right Radiogr aphic Imaging 05/16/2024 10:4 2 PM EST Impressions 05/16/2024 10:45 PM EST No acute bony abnormality. POS - [id number] -------- FINAL REPORT -------- Dictated By: Vanita Nevarez Dictated Date: 05/16/2024 22:42 ET Assigned Physician: Vanita Nevarez Reviewed and Electronically Signed By: Vanita Nevarez Signed Date: 05/16/2024 22:45 ET Workstation ID: [id number] Transcribed By: Self Edit Transcribed Date: 05/16/2024 22:42 ET Narrative 05/16/2024 10:45 PM EST EXAM: Right femur x-ray HISTORY: Right thigh pain. COMPARISON: None FINDINGS: AP and lateral views performed. No evidence of an acute fracture or malalignment. ??No destructive bone lesion. ??No cortical thickening or periosteal new bone formation identified. ??Vascular calcifications in the soft tissues. Procedure Note Vanita Nevarez MD - 05/16/2024 EXAM: Right femur x-ray HISTORY: Right thigh pain. COMPARISON: None FINDINGS: AP and lateral views performed. No evidence of an acute fracture or malalignment. No destructive bonelesion. No cortical thickening or periosteal new bone formationidentified. Vascular calcifications in the soft tissues. IMPRESSION: No acute bony abnormality. POS - [id number] -------- FINAL REPORT -------- Dictated By: Vanita Nevarez Dictated Date: 05/16/2024 22:42 ET Assigned Physician: Vanita Nevarez Reviewed and Electronically Signed By: Vanita Nevarez Signed Date: 05/16/2024 22:45 ET Workstation ID: [id number] Transcribed By: Self Edit Transcribed Date: 05/16/2024 22:42 ET Crispin MASON IMG XR PROCEDURES Final Result * XR Lumbar Spine 4+ Views (05/16/2024 12:37 PM EST) Anatomical Region Laterality Modality Spine, L-spine Radiographic Taina ging 05/16/2024 10:2 9 PM EST Impressions 05/16/2024 10:39 PM EST Multilevel degenerative changes, greater in the lower spine. POS - [id number] -------- FINAL REPORT -------- Dictated By: Vanita Nevarez Dictated Date: 05/16/2024 22:29 ET Assigned Physician: Vanita Nevarez Reviewed and Electronically Signed By: Vanita Nevarez Signed Date: 05/16/2024 22:39 ET Workstation ID: [id number] Transcribed By: Self Edit Transcribed Date: 05/16/2024 22:29 ET Narrative 05/16/2024 10:39 PM EST EXAM: Lumbar spine x-ray HISTORY: Low back pain with radiation into right lower extremity. COMPARISON: 09/17/2020 FINDINGS: 4 views of the lumbar spine were performed. 5 lumbar type vertebral bodies. Stable mild to moderate superior endplate compression deformity of T12. ??No lumbar compression deformities. ??Chronic severe disc space narrowing at L4-5 and L5-S1. ??Mild to moderate disc space narrowing at L3-4 and mild at L2-3 again noted. ??Multilevel endplate spurring. ??No evidence of spondylolysis. ??Multilevel endplate spurring. ??Stable minimal anterolisthesis of L3 on L4. ??Aortic calcifications. Procedure Note Vanita Nevarez MD - 05/16/2024 EXAM: Lumbar spine x-ray HISTORY: Low back pain with radiation into right lower extremity. COMPARISON: 09/17/2020 FINDINGS: 4 views of the lumbar spine were performed. 5 lumbar type vertebral bodies. Stable mild to moderate superior endplatecompression deformity of T12. No lumbar compression deformities. Chronicsevere disc space narrowing at L4-5 and L5-S1. Mild to moderate discspace narrowing at L3-4 and mild at L2-3 again noted. Multilevel endplatespurring. No evidence of spondylolysis. Multilevel endplate spurring.Stable minimal anterolisthesis of L3 on L4. Aortic calcifications. IMPRESSION: Multilevel degenerative changes, greater in the lower spine. POS - [id number] -------- FINAL REPORT -------- Dictated By: Vanita Nevarez Dictated Date: 05/16/2024 22:29 ET Assigned Physician: Vanita Nevarez Reviewed and Electronically Signed By: Vanita Nevarez Signed Date: 05/16/2024 22:39 ET Workstation ID: [id number] Transcribed By: Self Edit Transcribed Date: 05/16/2024 22:29 ET Crispin MASON IMG XR PROCEDURES Final Result * (ABNORMAL) Lipid panel (02/13/2024) LDL/HDL Ratio 2 0 - 4 Triglycerides 170(A) 0 - 150 mg/dL Cholesterol 126 0 - 200 mg/dL HDL 54 >=40 mg/dL LDL Cholesterol 38 0 - 100 mg/dL Blood Venous blood specimen / Unknown Historical Provider LAB BLOOD ORDERABLES [place] l Result * Depression Screening (08/03/2023) Depression Screening ABSTRACTED Historical Provider HEALTH MAINTENANCE Final Result * Falls Risk Assessment (06/26/2023) Falls Risk Assessment ABSTRACTED Historical Provider HEALTH MAINTENANCE Final Result * Colonoscopy (01/20/2022) Colonoscopy no interpretation , abstracted Anatomical Region Laterality Modality Other Historical Provider HEALTH MAINTENANCE Final Result from Last 3 Months or Most Recently Relevant to Health Maintenance Insurance MEDICARE [facility] 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
--- OUTSIDE RECORDS SUMMARY | 2024-07-17 16:27 | XMS_ITS | Encounter Summary ---
Author Organization [facility] Address [address] [place] [address] Care Team Providers Care Reed Cleaner Name Role Phone Kaitlin Hair MD Primary Care Provider [phone] Encounter Details Date Type Department Care Team (Late st Contact Info) Description 07/15/2024 8:45 AM EDT Office Visit Adult Medicine [facility] [address] [place] [address] Kaitlin Hair MD [address] [place] [address] Weight loss (Primary Dx); Mixed hyperlipidemia; Anxiety disorder, unspecified type; Moderate aortic stenosis; Pure hypercholesterolemia; Osteoarthritis of lumbar spine, unspecified spinal osteoarthritis complication status; Elevated fasting glucose Social History Tobacco Use Types Packs/Day Years [...] on file Sexual Orientation Not on file documented as of this encounter Last Filed Vital Signs Vital Sign Reading Time Taken Comments Blood Pressure 132/70 07/15/2024 8:42 AM EDT Pulse 80 07/15/2024 8:42 AM EDT Temperature 35.9 ??C (96.6 ??F) 07/15/2024 8:42 AM ED T Respiratory Rate 20 07/15/2024 8:42 AM EDT Oxygen Saturation - - Inhaled Oxygen Concentration - - Weight 73.5 kg (162 lb) 07/15/2024 8:42 AM EDT Height 172.7 cm (5' 8 ) 07/15/2024 8:42 AM EDT Body Mass Index 24.63 07/15/2024 8:42 AM EDT documented in this encounter Progress Notes * Kaitlin Hair MD - 07/15/2024 8:45 AM EDT CHIEF COMPLAINT: No chief complaint on file. IDENTIFIER: Forest Boland is a 83 y.o. old male. HPI: Pt presents for evaluation of multiple medical problems. Patient complaining of right lower back pain with some radiating pain and weakness in the leg. He recently had MRI, he follows with physiatry getting injection that offered short-lived relief. No fall or injury. Patient has not seen me for some time, this created some anxiety. He want me to check out that everything is fine . Patient actually reported weight loss , although he cannot be sure at what timeframe. This apparently led to recent laboratory studies by my colleague, patient is concerned questions regarding his laboratory results. His appetite is the same, as well as his memory. Patient recently had echocardiogram due to heart murmur, he has many questions regarding this test.His activity level is at baseline, mostly limited due to back pain and right lower extremity weakness. He denied any chest pain shortness of breath palpitation. He specially denied excessive thirst, polyuria or polydipsia. He is taking his medication as instructed. I reviewed patient's evaluation by my colleague, laboratory test echocardiogram since our last visit. I reviewed patient's evaluation with physiatry, MRI, [employer] imaging. ROS: GENERAL: Negative for malaise, significant weight loss and fever RESPIRATORY: No cough, wheezing or shortness of breath CARDIOVASCULAR: Negative for chest pain, leg swelling and palpitations, See HPI GI: Negative for abdominal discomfort, changes in bowel habits, blood in stool or black stools ENDOCRINE: Negative for cold or heat intolerance, polyuria, polydipsia and goiter, See HPI NEURO: No persistent headache, fainting, seizures, strokes, TIAs, weakness, numbness or tingling, See HPI PAST MEDICAL HISTORY: Patient Active Problem List Diagnosis Date Noted TIA (transient ischemic attack) 04/10/2024 Mixed hyperlipidemia 04/10/2024 Elevated blood-pressure reading without diagnosis of hypertension 11/23/2022 Moderate aortic stenosis 09/08/[address] 06/23/2022 Neck pain 06/20/2022 Polyp of colon 03/14/2022 Elevated fasting glucose 09/08/2021 Malignant melanoma of skin ([facility]) 09/08/2021 Ankylosing spondylitis ([facility]) 11/20/2020 Memory deficits 11/02/2020 BONIFACIO (obstructive sleep apnea) 06/04/2020 Benign non-nodular prostatic hyperplasia without lower urinary tract symptoms 11/07/2016 Occipital neuralgia 08/24/2010 Cervicocranial syndrome 07/19/2010 Degenerative arthritis of cervical spine 04/13/2010 Anxiety disorder 06/19/2007 Pure hypercholesterolemia 01/04/2007 Myasthenia gravis without exacerbation ([facility]) 03/28/2006 Benign neoplasm of colon 11/29/2005 Malignant neoplasm of skin 11/24/2005 SOCIAL HISTORY: Social History Tobacco Use Smoking status: Never Smokeless tobacco: Never Substance Use Topics Alcohol use: Yes FAMILY HISTORY: Family Status Relation Name Status Mother (Not Specified) Father (Not Specified) MGF (Not Specified) PGM (Not Specified) Daughter Alive Neg Hx (Not Specified) No partnership data on file Family History Problem Relation Name Age of Onset Other (Other: dementia) Mother developped at age 85-86 Other (Other: irregular heart, CHF) Father age 90 Other (Other: at age 34-35 from heart disease, no details) Maternal Grandfather Heart attack Paternal Grandmother age 75 No Known Problems Daughter Hyperlipidemia Neg Hx Diabetes Neg Hx Autoimmune disease Neg Hx Breast cancer Neg Hx Colon cancer Neg Hx Prostate cancer Neg Hx Coronary artery disease Neg Hx Mental illness Neg Hx Heart failure Neg Hx Sleep apnea Neg Hx Hypertension Neg Hx Thyroid disease Neg Hx ACTIVE MEDICATIONS: Outpatient Medications Marked as Taking for the 07/15/24 encounter (Office Visit) with Kaitlin Hair MD Medication Sig Dispense Refill aspirin 81 mg EC tablet 1 TABLET DAILY atorvastatin (LIPITOR) 10 mg tablet Take 1 tablet (10 mg total) by mouth at bedtime. 90 tablet 1 MULTIVITAMIN ORAL qd OMEGA-3 FATTY ACIDS ORAL Take by mouth daily. predniSONE (DELTASONE) 1 mg tablet Take 2 tablets (2 mg total) by mouth 1 (one) time each day. ALLERGIES: Patient has no known allergies. PHYSICAL EXAM: Blood pressure 132/70, pulse 80, temperature 35.9 ??C (96.6 ??F), temperature source Temporal, resp. rate 20, height 1.727 m (68 ), weight 73.5 kg (162 lb). Body mass index is 24.63 kg/m??. BMI is 18.5 to 24.9 (within the normal range) and will be followed APPEARANCE: Alert and in no acute distress, smiling, well hydrated, well groomed MOUTH/THROAT: no erythema, lesions, or exudates and oral mucosa moist NECK: No JVD HEART: Normal S1-S2 midsystolic murmur no S3 LUNG: clear to auscultation bilaterally ABDOMEN: Bowel sounds normoactive, no bruits and soft, non-tender, without organomegaly or palpablemasses EXTREMITIES: No edema and diffuse to DJD changes NEURO: reflexes symmetrical and overall steady gait walk with a cane SKIN: Skin color, texture, turgor normal. No rashes or lesions. LABS: Lab Results Component Value Date WBC 10.5 05/30/2024 HGB 14.8 05/30/2024 HCT 45.4 05/30/2024 MCV 96.4 05/30/2024 PLT 243 05/30/2024 Lab Results Component Value Date NA 140 05/30/2024 K 4.0 05/30/2024 CL 109 05/30/2024 CO2 25 05/30/2024 GLUCOSE 91 05/30/2024 BUN 14 05/30/2024 CREATININE 0.98 05/30/2024 CALCIUM 9.8 05/30/2024 PROT 7.4 05/30/2024 ALBUMIN 4.1 05/30/2024 BILITOT 0.5 05/30/2024 AST 27 05/30/2024 ALT 38 05/30/2024 ALKPHOS 69 05/30/2024 EGFR 77 05/30/2024 No results found for: TSH Wt Readings from Last 5 Encounters: 07/15/24 73.5 kg (162 lb) 06/21/24 69.9 kg (154 lb) 05/30/24 73.5 kg (162 lb) 05/16/24 73.9 kg (163 lb) 04/10/24 74.8 kg (165 lb) IMPRESSION: 1. Weight loss 2. Mixed hyperlipidemia 3. Anxiety disorder, unspecified type 4. Moderate aortic stenosis 5. Pure hypercholesterolemia 6. Osteoarthritis of lumbar spine, unspecified spinal osteoarthritis complication status 7. Elevated fasting glucose PLAN: Pt presents for evaluation of multiple medical problems. Patient complaining of right lower back pain with some radiating pain and weakness in the leg. He recently had MRI, he follows with physiatry getting injection that offered short-lived relief. No fall or injury. Patient has not seen me for some time, this created some anxiety. He want me to check out that everything is fine . Patient actually reported weight loss , although he cannot be sure at what timeframe. This apparently led to recent laboratory studies by my colleague, patient is concerned questions regarding his laboratory results. His appetite is the same, as well as his memory. Patient recently had echocardiogram due to heart murmur, he has many questions regarding this test.His activity level is at baseline, mostly limited due to back pain and right lower extremity weakness. He denied any chest pain shortness of breath palpitation. He specially denied excessive thirst, polyuria or polydipsia. He is taking his medication as instructed. I reviewed patient's evaluation by my colleague, laboratory test echocardiogram since our last visit. I reviewed patient's evaluation with physiatry, MRI, [employer] imaging. 1 patient is concerned about weight loss, he feels quite okay , he just wanted me to be sure everything is fine. I reviewed patient's weight and demonstrated to him that his weight has been overall stable over the past 3 months, he actually has gained weight since last visit. His appetite remained the same as well as his cardiovascular status. I will check TSH. Discussed proper nutrition I will arrange early follow-up visit 2 I will check A1c 3 lumbosacral spine DJD, spinal stenosis component. Patient will continue to follow with physiatry 4 blood pressure well-controlled 5 lipid well-controlled with stable liver function test 6 patient memory appears to be stable, he gave very meticulous report of his illness and follow-up. He has appointment scheduled with surgery for his inguinal hernia and it is totally asymptomatic. There is likely significant anxiety component and patient told me he feels better talking with me and with my careful examination and discussion of his laboratory results. I will arrange early follow-up visit, at that time we can also discuss with the patient family regarding his memory issues. Orders Placed This Encounter Procedures Thyroid stimulating hormone with reflex to free t4 and free t3 Hemoglobin A1c ADDITIONAL ORDERS: None Kaitlin Hair MD on 07/15/2024 at 9:16 AM EDT documented in this encounter Plan of Treatment Upcoming Encounters Date Type Department Care Team (Late st Contact Info) Description 08/26/2024 11:00 AM EDT Office Visit General Surgery - [place] [address] [phone] Korey Quintanilla DO [address] [address] 09/18/2024 9:15 AM EDT Office Visit Adult Medicine [facility] [address] [place] [address] Crispin Tellez PA [address] [place] [address] 01/01/2025 9:50 AM EDT Office Visit [facility] [address] [phone] Layla Latham MD [address] [place] [address] Scheduled Orders Name Type Priority Associated Diagnoses Orde r Schedule Thyroid stimulating hormone with reflex to free t4 and free t3 Lab Routine Weight loss 1 Occurrences starting 07/15/2024 until 07/15/2025 Hemoglobin A1c Lab Routine Weight loss Elevated fasting glucose 1 Occurrences starting 07/15/2024 until 07/15/2025 documented as of this encounter Visit Diagnoses Diagnosis Weight loss- Primary Loss of weight Mixed hyperlipidemia Anxiety disorder, unspecified type Moderate aortic stenosis Aortic valve disorders Pure hypercholesterolemia Osteoarthritis of lumbar spine, unspecified spinal osteoarthritis complication status Elevated fasting glucose Impaired fasting glucose documented in this encounter Discontinued Medications Medication Sig Discontinue Reason Start Date End Da te buprenorphine (BUTRANS) 15 mcg/hour Place 1 patch on the skin 1 (one) time per week. Max Daily Amount: 1 patch 07/15/2024 documented as of this encounter Care Teams Reed Cleaner Relationship Specialty Start Date End Date Kaitlin Hair MD [address] [place] [id number] PCP - General 02/10/00 documented as of this encounter
--- OUTSIDE RECORDS SUMMARY | 2024-07-17 16:27 | XMS_ITS | Encounter Summary ---
Author Organization [facility] Address [address] [place] [address] Care Team Providers Care Cook Railroad Name Role Phone Kaitlin Hair MD Primary Care Provider [phone] Reason for Visit * Imaging (Routine) - Closed Specialty Diagnoses / Procedures Referred By Contac t Referred To Contact Cardiology Diagnoses Moderate aortic stenosis Procedures Transthoracic echocardiogram (TTE) complete with PRN contrast, bubble, strain, and 3D order panel KS TTE W 2D IMAGE COMPLETE W DOPPLER ECHO & COLOR FLOW DOPPLER ECHO KS NAMAN 2D COMPLETE W/CONTRAST OR W & WO CONTRAST WITH DOPPLER Layla Latham MD [address] [place] [address] Phone: tel: fax: [facility] Referral ID Status Reason Start Date Expiration Date Visits Re quested Visits Authorized [id number] Closed 04/10/2024 04/10/2025 1 1 Encounter Details Date Type Department Care Team (Latest Contact Info) Description 06/21/2024 11:00 AM EST Ancillary Procedure [facility] [address] [place] [address] [place] [phone] Moderate aortic stenosis Social History Tobacco Use Types Packs/Day Years Used Date Smoking Tobacco: Never Smokeless Tobacco: Never Alcohol Use Standard Drinks/Week Comments Yes 0 (1 standard drink = 0.6 oz pur e alcohol) Sex and Gender Information Value Date Recorded Sex Assigned at Not on file Legal Sex Male 3:44 AM EST Gender Identity Not on file Sexual Orientation Not on file documented as of this encounter Last Filed Vital Signs Vital Sign Reading Time Taken Comments Blood Pressure 132/76 06/21/2024 11:44 AM EST Pulse - - Temperature - - Respiratory Rate - - Oxygen Saturation - - Inhaled Oxygen Concentration - - Weight 69.9 kg (154 lb) 06/21/2024 11:44 AM EST Height 172.7 cm (5' 8 ) 06/21/2024 11:44 AM EST Body Mass Index 23.42 06/21/2024 11:44 AM EST documented in this encounter Plan of Treatment Upcoming Encounters Date Type Department Care Team (Late st Contact Info) Description 08/26/2024 11:00 AM EDT Office Visit General Surgery - [place] 175 [facility] [address] [place] [phone] Korey Quintanilla DO 175 [facility] [place] [address] [place] [address] 09/18/2024 9:15 AM EDT Office Visit Adult Medicine [facility] [address] [place] [address] Crispin Tellez PA [address] [place] [address] 01/01/2025 9:50 AM EDT Office Visit [facility] [address] 300 [facility] [address] [place] [phone] Layla Latham MD [address] [place] [address] documented as of this encounter Procedures Procedure Name Priority Date/Time Associated Diagnosis Comments TRANSTHORACIC ECHOCARDIOGRAM (TTE) COMPLETE Routine 06/21/2024 11:45 AM EST Moderate aortic stenosis documented in this encounter Results * (ABNORMAL) TRANSTHORACIC ECHOCARDIOGRAM (TTE) COMPLETE (06/21/2024 11:45 AM EST) Left Atrium Minor Kendall 5.8 cm CV PACS Left Atrium Major Kendall 4.9 cm CV PACS LA Area Sys [...] Volume 108 mL CV PACS MV Deceleration [place] 4.5 m/s2 CV PACS E Wave Deceleration Time 180 119 - 242 ms CV PACS MV PHT 53 ms CV PACS MV Peak A [place] 1.43 m/s CV PACS MV Peak E [place] 0.82 m/s CV PACS MV Mean Gradient [...] Overall the study quality was technically difficult. Layla Latham MD CV ECHO PROCEDURES Final Result documented in this encounter Visit Diagnoses Diagnosis Moderate aortic stenosis Aortic valve disorders documented in this encounter Care Teams Cook Railroad Relationship Specialty Start Date End Date Kaitlin Hair MD [address] [place] [address] PCP - General 02/10/00 documented as of this encounter
--- OUTSIDE RECORDS SUMMARY | 2024-07-17 16:27 | XMS_ITS | Encounter Summary ---
Author Organization [facility] Address [address] [place] [address] Care Team Providers Care Television Technician Name Role Phone Kaitlin Hair MD Primary Care Provider [phone] Reason for Visit * Reason Onset Date Comments Request For Order(s) 06/10/2024 Provider Call Back 06/10/2024 Encounter Details Date Type Department Care Team (Late st Contact Info) Description 06/10/2024 Telephone Adult Medicine [facility] [address] [place] [phone] Crispin Tellez PA [address] [place] [address] Request For Order(s); Provider Call Back Social History Tobacco Use Types Packs/Day Years [...] on file documented as of this encounter Progress Notes * Daja Rayo RN - 06/21/2024 4:29 PM EST Pt continues to have pain, this is tolerable for short periods of time but pt has to rest due to the pain, no new symptoms , he is seeing dr rogel on Monday morning Pt to see dr rogel, discuss MRI and if needed he would like to have this done at [facility], he will let dr rogel know this he will f/u with dr Hair after he sees physiatry Pt to go to the ed over the weekend if develops new or worsening symptoms * ISABELLA Carrillo - 06/21/2024 4:19 PM EST Please triage the patient and book him for follow up with MD level provider if appropriate for visit. My suspicion is his symptoms are originating from his lumbar spine support by findings on lumbar MRI, My plan for this is to refer him to physiatry, and he was going to see Dr. Rogel. If the patient was evaluated by Dr. Rogel or another physiatry provider and had the lower back treated and his symptoms are no better he needs to be seen again. I never said he needed to go to the hospital to get an MRI or CT scan. I MRI'ed what I felt was appropriate to MRI at the time of my evaluation. He needs to be seen in the office to determine next steps. * Susan Lira - 06/17/2024 9:37 AM EST The patient is calling back regarding the pain and performing a MRI and CAT Scan on his leg. He informed that he indeed did go to the ER and see if they can perform an MRI and CAT Scan but informed the patient that Crispin Tellez or Kaitlin Hair MD can order them in the office. His is also on the phone and states that they were almost waiting 3 and 4 hours to perform a CAT Scan and/or MRI andstill was waiting and was informed by the hospital that this can be performed in the office. Was wondering if the CAT Scan or MRI for his leg can be ordered in the office. Please Advise. * Halie Leger RN - 06/13/2024 9:30 AM EST Spoke with Pt and his . Pt states that he eugene not feel that this needs emergent evaluation at this time. Pt states he will probably go tomorrow. Advised per Estevan Tellez's advice. Pt verbalized understanding. * ISABELLA Carrillo - 06/13/2024 8:49 AM EST I already had heightened concern in this patient who had complained of severe pain and started using a cane to ambulate. While so far my workup has been reassuring against emergent sources, given hisseverity of pain, which he claims is worsening, I actually feel patient is best evaluated in the emergency department. * Jyotsna Manning MA - 06/13/2024 8:35 AM EST Pt calling again, stating the pain is getting worse, and having a harder time walking. Using a caneto help. Wants to know what else can be done for pain and wondering if something could be called infor the pain, OTC meds are not helping * Sarah Begum RN - 06/11/2024 8:14 AM EST Spoke with the pt From the knee up is still bothering him he continues to limp and is hunched over from the pain. He thought the MRI was going to be from the knee up and not just the lumbar spine. Asking if more testing can be done from the knee up. Advised of xray results and he stated understanding. Asked if the provider would consider further testing Please advise * Susan Lira - 06/10/2024 5:13 PM EST The patient is calling in regards to recent images of right thigh and hip. He stated that he did not understand why he did not have any images done to his right hip and knee. Would like to see if he can get those images done but would like to see from Crispin Tellez if it would be okay to perform those images through MRI. Please Advise. documented in this encounter Plan of Treatment Upcoming Encounters Date Type Department Care Team (Late st Contact Info) Description 08/26/2024 11:00 AM EDT Office Visit General Surgery - [place] [address] [phone] Korey Quintanilla, DO 175 [facility] [address] [place] [address] 09/18/2024 9:15 AM EDT Office Visit Adult Medicine [facility] [address] [place] [address] Crispin Tellez PA [address] [place] [address] 01/01/2025 9:50 AM EDT Office Visit [facility] [address] [facility] [address] [place] [address] Layla Latham MD [address] [place] [address] documented as of this encounter Visit Diagnoses Not on filedocumented in this encounter Care Teams Television Technician Relationship Specialty Start Date End Date Kaitlin Hair MD [address] [place] [id number] PCP - General 02/10/00 documented as of this encounter
== END 2024-07-17 14:36 | disposition home or self-care (01) ==
LOC: HO.HNS 13:53
PROVIDERS: PCP Internal Medicine; Referring Provider Physical Medicine & Rehabilitation; Visit Provider Neurological Surgery
DX: M48.062 Spinal stenosis, lumbar region with neurogenic claudication (principal)
CPT/HCPCS: 99204

== ENCOUNTER → 2024-07-17 13:52 | Outpatient (BNVA) | payer MEDICARE, SELFPAY | PROVIDERS: PCP Internal Medicine; Referring Provider Physical Medicine & Rehabilitation; Visit Provider Neurological Surgery | DX: M48.062 Spinal stenosis, lumbar region with neurogenic claudication (principal) | CPT/HCPCS: 99202 ==

== ENCOUNTER 2024-08-22 08:19 | Day surgery (SDC) | payer MEDICARE, SELFPAY ==
[2024-08-09 10:12] VITALS: BP 129/62; PULSE 62; RESP 20; O2SAT 100; BMI 25.1
--- NOTE | 2024-08-09 10:24 | HO.ANESPROP2 ---
Documented by User: Janet Schulz NP 08/09/24 14:38 HPI - Anesthesia Eval Consult details Narrative: 83yo M for L2- 3, L3- 4 Laminotomy, 08/22/24 Follows [facility]. 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 Stable at 07/2024 office visit. No recent illness No CP/SOB with minimal activity r/t back/leg pain Aortic stenosis: mod with LYNNETTE 1.3 on ECHO 06/2024. No periph edema, no orthopnea Ocular MG: Pyridostigmine BID, prednisone 5mg daily. Follows [facility]. Stable at 07/2024 office visit. Left nostril occluded d/t deviated septum PMFSH Active Problems Active Problems: All Active Problems Lumbar stenosis with neurogenic claudication (Acute) Past Medical History Medical History Arthritis Hepatitis Pure hypercholesterolemia Degenerative arthritis of cervical spine Occipital neuralgia BPH (benign prostatic hyperplasia) Ankylosing spondylitis Malignant melanoma Moderate aortic stenosis Mixed hyperlipidemia Prostate cancer Memory loss TIA (transient ischemic attack) Migraines Osteoarthritis Sleep apnea Ocular myasthenia gravis Family History Family history of problems with anesthesia: No Surgical History Surgical History Hx of cataract extraction History of excision of pilonidal cyst H/O colonoscopy History of Problems with Anesthesia: No Social History Social History Are you a primary home health care respiratory therapist to a significant other at home: No Do you presently have visiting nurse or other home services: No Comment: aware of trip hazards Patient Tobacco Use Status: Never used Tobacco Use of substances other than those prescribed or required for medical reasons: No Have you been hit, kicked, punched, or otherwise hurt by someone within the past year? If so, by whom?: No Spiritual Healthcare Practices: none Sabianist Healthcare Practices: Confucianist Cultural Healthcare Practices: none Are you DNR?: No Advance Directives: No ( is primary contact) Advance Directives Information Provided: Yes (as above noted) Advance Directives on File: No Poor oral hygiene: No Meds Allergies Allergy/AdvReac Type Severity Reaction Status Date / Time No Known Allergies Allergy Verified 08/22/24 08:59 Home Medications ?Medication ?Instructions ?Recorded ?Confirmed ?Last Taken ?Type aspirin 81 mg tablet,delayed 81 mg PO QAM 08/08/24 08/09/24 Unknown History release atorvastatin 10 mg tablet 10 mg PO BEDTIME 08/08/24 08/08/24 Unknown History multivitamin 1 tab PO QAM 08/08/24 08/08/24 Unknown History omega-3 fatty acids 1,000 mg 1,000 mg PO QAM 08/08/24 08/09/24 Unknown History capsule prednisone 5 mg tablet 5 mg PO QAM 08/08/24 08/09/24 Unknown History pyridostigmine bromide 60 mg tablet 60 mg PO BID 08/08/24 08/09/24 Unknown History tamsulosin 0.4 mg capsule 0.4 mg PO BEDTIME 08/08/24 08/09/24 Unknown History calcium carbonate (Calcium 600) 600 mg PO QAM 08/09/24 08/09/24 Unknown History Exam Height,Weight and Vital Signs: Height 5 ft 8 in Weight 74.9 kg Last Vital Signs Pulse 62 08/09/24 10:12 Resp 20 08/09/24 10:12 BP 129/62 08/09/24 10:12 Pulse Ox 100 08/09/24 10:12 O2 Del Method Room Air 08/09/24 10:12 Pertinent Lab Results Pertinent Lab Results: CBC and BMP 05/2024 from outside facility WNL Narrative Narrative: EKG 07/[address]-T wave changes ECHO 06/2024 LV cavity size nml. Nml LV RWM. LV sys function hyperdynamic with EF >70%. Mild cavitary gradient of 17 that increases to 32 with Valsalva RV cavity is nml. RV sys function is nml Aortic valve demonstrates moderate stenosis (LYNNETTE= 1.3). Trace aortic insufficiency. Mitral valve demonstrates possible mild stenosis. Though leaflet tips were not well-visualized so increased gradients across the valve could be secondary to hyperdynamic state. C/W 05/2023 study, findings are roughly unchanged including incidental note of a likely simple liver cyst. Ascending aorta was not well-visualized for comparison. Was 3.8cm in 05/2023 Airway Mallampati Class: III TM Dist: >3cm Neck ROM: Poor (Severe OA) Loose/Missing/Broken Teeth: No (1 x crown) Heart: RRR, +M Lungs: CTAB Assessment and Plan Assessment Anesthesia Assessment: Chart Reviewed Final Anesthetic Review Family History of Problems with Anesthesia: No History of Problems with Anesthesia: No Documented by User: Keily Herrera MD 08/22/24 09:28 [facility] Past Medical History Medical History Arthritis Hepatitis Pure hypercholesterolemia Degenerative arthritis of cervical spine Occipital neuralgia BPH (benign prostatic hyperplasia) Ankylosing spondylitis Malignant melanoma Moderate aortic stenosis Mixed hyperlipidemia Prostate cancer Memory loss TIA (transient ischemic attack) Migraines Osteoarthritis Sleep apnea Ocular myasthenia gravis Surgical History Surgical History Hx of cataract extraction History of excision of pilonidal cyst H/O colonoscopy Social History Social History Are you a primary home health care respiratory therapist to a significant other at home: No Do you presently have visiting nurse or other home services: No Comment: aware of trip hazards Patient Tobacco Use Status: Never used Tobacco Use of substances other than those prescribed or required for medical reasons: No Have you been hit, kicked, punched, or otherwise hurt by someone within the past year? If so, by whom?: No Spiritual Healthcare Practices: none Sabianist Healthcare Practices: Confucianist Cultural Healthcare Practices: none Are you DNR?: No Advance Directives: No ( is primary contact) Advance Directives Information Provided: Yes (as above noted) Advance Directives on File: No Poor oral hygiene: No Meds Allergies Allergy/AdvReac Type Severity Reaction Status Date / Time No Known Allergies Allergy Verified 08/22/24 08:59 Home Medications ?Medication ?Instructions ?Recorded ?Confirmed ?Last Taken ?Type aspirin 81 mg tablet,delayed 81 mg PO QAM 08/08/24 08/09/24 Unknown History release atorvastatin 10 mg tablet 10 mg PO BEDTIME 08/08/24 08/08/24 Unknown History multivitamin 1 tab PO QAM 08/08/24 08/08/24 Unknown History omega-3 fatty acids 1,000 mg 1,000 mg PO QAM 08/08/24 08/09/24 Unknown History capsule prednisone 5 mg tablet 5 mg PO QAM 08/08/24 08/09/24 Unknown History pyridostigmine bromide 60 mg tablet 60 mg PO BID 08/08/24 08/09/24 Unknown History tamsulosin 0.4 mg capsule 0.4 mg PO BEDTIME 08/08/24 08/09/24 Unknown History calcium carbonate (Calcium 600) 600 mg PO QAM 08/09/24 08/09/24 Unknown History Assessment and Plan Assessment Anesthesia Assessment: Anesthesia Plan Discussed Final Anesthetic Review NPO: Yes ASA Class: III Final Preanesthetic Review: No Changes in Pt Med Stat, Meds/Allgs Chart Reviewed, Consent Obtained/Reviewed and Anes Risks/Benef Reviewed Patient Risk: Intermediate Procedure Risk: Intermediate Anesthetic Plan Anesthetic Plan: GA Disposition: Standard PACU
[2024-08-22] VITALS (7 sets, daily range): BP systolic 122–144; BP diastolic 60–80; PULSE 62–90; RESP 12–20; TEMP 36.1–37.2; O2SAT 96–100; BMI 23.1
--- NOTE | ~2024-08-22 | FL_ITS ---
EXAMINATION: FL GUIDANCE ONLY HISTORY: L2-L3, L3-L4 laminotomy, right COMPARISON: None available. TECHNIQUE: Fluoroscopy time: 4.6 seconds. Cumulative Dose: 2.144 mGy. DAP: 0.6991 mGym2 Images: 1. FINDINGS: A single fluoroscopic spot film of the lumbar spine in the lateral projection demonstrates a probe directed toward the L2-3 intervertebral disc space from a posterior approach. FL/FL guidance in OR IMPRESSION: Fluoroscopy during procedure. Please see procedure report for additional information. Electronically signed by: Jamar Carlson MD 08/22/2024 12:41 PM EDT
[2024-08-22] MEDS: methocarbamoL 750 MG TABLET PO (09:17)
[2024-08-22] MEDS: Gabapentin 300 MG CAPSULE PO (09:17)
--- NOTE | 2024-08-22 09:19 | MHC.SHP ---
Pre-Procedural Eval Section A - 24 Hr Update-Section A only Date of Service: 08/22/24 The patient is an INPATIENT: No Section B - Complete if H&P > 30 days Chief Complaint: Spinal stenosis, lumbar region with neurogenic cla Allergies: Allergies Allergy/AdvReac Type Severity Reaction Status Date / Time No Known Allergies Allergy Verified 08/22/24 08:59 Review of Systems Sugical H&P ROS: Negative: Constitution, Cardiovascular, Respiratory, Neurological, Psychiatric, Hem-Onc, Allergic/Immunologic, Gastrointestinal, Genitourinary, Musculoskeletal, Integumentary, Endocrine and Eyes/Ears/Nose/Throat Exam Surgical H&P Exam: Normal: HEENT, Normal: Heart, Normal: Lungs, Normal: Extremities, Normal: Abdomen, Normal: Skin and Normal: Neurological (Awake, alert) Plan Diagnosis/Plan: Unchanged I have reviewed the history and physical and performed a pertinent physical examination on my patient. No changes have occurred unless specified. Right L2-3 and L3-4 decompression Time Spent With Patient Time: Total time managing care of this patient today __5__ minutes.
[2024-08-22] MEDS: Lactated Ringers 1,000 ML 100 ML IVCONT (09:23)
[2024-08-22] MEDS: Acetaminophen 1,000 MG/100 ML PIGGYBACK 400 MG IV (10:20)
[2024-08-22] MEDS: ceFAZolin Sodium/Dextrose,Iso 2 GM/50 ML PIGGYBACK IV (10:20)
--- NOTE | 2024-08-22 11:40 | P.OP_ITS ---
Operative Note Operative Note Date of Service: 08/22/24 Narrative: Preoperative Diagnosis: L3-4 and L2-3 spinal stenosis/lateral recess stenosis/neural foraminal stenosis; right lumbar radiculopathy Operation: Right L2-3 and L3-4 Laminotomy, Partial facetectomy and foraminotomy with use of microscope Consent Informed Consent was obtained for this operation. I have explained the nature, purpose and benefits of the operation. I have discussed the risks and benefit of the operation including possible complications or adverse events with patient/family. Alternative(s) were discussed with the patient with their relative benefits and risks as well as the consequences of not accepting the operation were included in obtaining consent. Surgeon: DANIELLE JETER MD, PHD Procedure Assisted By: David Walsh Description of Procedure This patient is suffering from right leg pain due to severe L3-4 central spinal stenosis and lateral recess stenosis and moderate L2-3 spinal stenosis. The patient was offered a right L2-3 and L3-4 decompression. The procedure complications were explained. The patient was consented. The patient was brought to the operating room and endotracheally intubated. The patient was turned in prone position on the Theo frame. Prep and drape was done followed by timeout. The Physician assistant wrestling coach provided access. A mid lumbar incision was made followed by release of the paravertebral muscle on the right side to expose the L2, L3 and L4 laminae and facet joints. An intraoperative x-ray was obtained to confirm the correct level. The microscope was brought in. I took over the procedure. The high-speed drill was used to do a L3-4 laminotomy until flavum ligament was reached. A #2 Kerrison was used to expand the laminotomy near flush to the pedicles and to include a partial facetectomy. The flavum ligament was opened and resected with a #3 Kerrison to decompress the underlying thecal sac. The flavum ligament was removed to decompress the lateral recess and the exiting L4 nerve root. A long nerve hook could be easily passed along the medial side of the pedicle as a sign of adequate decompression. Then attention was turned to the L2-3 level. A right L2-3 hemilaminotomy was done. The flavum ligament was opened and resected with a 2. And 3 Kerrison to decompress the thecal sac and exiting L3 nerve root. The microscope was removed. Hemostasis was done. The physician assistant wrestling coach close the Incision in 2 layers. Steri-Strips were used to approximate incision. An OpSite with Tegaderm was used to cover the incision. All sponge needle counts were correct. Patient was extubated and transported in stable is to recovery room. Anesthesia: General Estimated Blood Loss (ml): 15 Complications: None Duration of Surgery: Under 60 Minutes Postoperative Plan: Discharge to home
--- NOTE | 2024-08-22 11:45 | PM.DS ---
DS: Providers Provider Date of Service: 08/22/24 Date of discharge: 08/22/24 Primary care physician: Kaitlin Hair MD Admitting clinician: Giuliano Sanchez DS: Diagnosis Discharge Diagnosis (1) Lumbar stenosis with neurogenic claudication: Status: Acute DS: Summary Time Attestation Discharge Coordination Time (in mins): 4 Quality: Safe Use of Opioids Does Pt have an Active Cancer Diagnosis on the Problem List?: No Quality: Stroke Does the patient have a stroke diagnosis?: No Physical Exam Vital Signs: Vital Signs: Last Vital Signs Temp 98.9 F 08/22/24 09:00 Pulse 89 08/22/24 09:00 Resp 18 08/22/24 09:00 BP 134/80 08/22/24 09:00 Pulse Ox 99 08/22/24 09:00 O2 Del Method Room Air 08/22/24 09:00 BMI result Body Mass Index 23.1 Discharge Plan Discharge Patient Disposition: Home, Self-Care Referrals: Kaitlin Hair MD [Primary Care Provider] - 1 Week Discharge Medications: New docusate sodium [Colace] 100 mg capsule 100 mg PO BID Qty: 20 0RF oxycodone 5 mg tablet 5 mg PO Q4H PRN (Reason: pain) Qty: 20 0RF Rx Instructions: Partial Fill upon patient request. Continued multivitamin Tablet 1 tab PO QAM omega-3 fatty acids 1,000 mg Capsule 1,000 mg PO QAM atorvastatin 10 mg tablet 10 mg PO BEDTIME prednisone 5 mg tablet 5 mg PO QAM tamsulosin 0.4 mg capsule 0.4 mg PO BEDTIME pyridostigmine bromide 60 mg tablet 60 mg PO BID calcium carbonate [Calcium 600] 600 mg calcium (1,500 mg) Tablet 600 mg PO QAM Held aspirin 81 mg Tablet,Delayed Release (Dr/Ec) 81 mg PO QAM Hold Instructions: Resume on 08/29/24. You may resume aspirin 1 week after surgery Discharge Orders: Discharge Order (Routine); Ordered 08/22/24 Ordered By: David Mccall Diet: Advance to usual diet Activity on Discharge: As tolerated Activity Restrictions/Additional Instructions: After your spinal surgery we ask you to observe the following restrictions/guidelines: Activity: It is normal to feel some discomfort as you increase your activity, but that will improve with time. We ask you avoid heavy lifting or acitivities that cause pain. As a general rule, 8lbs is a safe limit for lifting right after surgery. Walk as much as you feel comfortable but not to exhaustion. You will feel extra tired the first few days after surgery. Stay well hydrated. It is OK to walk up and down stairs You may return to driving when you are off narcotics (such as vicodin, oxycodone, dilaudid, etc), and you are back to normal functional capacity. If you have any concerns please check with office before driving. Return to work is specific to each patient and each surgery, so please speak with your doctor/PA at first follow up. Please bring paperwork such as FMLA at that time if you need it filled out. Medications: You may resume aspirin 1 week after surgery For optimum pain control, it is best to start with a combination of 500 mg of Tylenol every 4 hours with 600 mg of Motrin every 8 hours, and use narcotics as needed in between for breakthrough pain. We will give you a short supply of narcotics after surgery (usually one weeks worth). If you need more please call the office but do not use more than prescribed. You will need to give our office 48 hours notice if you need narcotics refilled and we do not fill narcotics on weekends or evenings. If you are on a narcotic, it is a good idea to take a stool softener such as colace or senna to avoid constipation If you take blood thinner such as aspirin, Plavix, Coumadin, Effient, Eliquis etc for conditions such as Afib, DVT, Pulmonary embolus, coronary disease, stents etc please speak with your surgeon about specific details as to when you can resume these medications. You can resume NSAIDs on post op day 1 (eg: Motrin, Naproxen, etc). Follow up: Please call the office, , after surgery to arrange a 3 week follow up for wound check. Wound Care: You may remove your dressing on the first day after surgery. You may leave open to air. Please do not remove the steri strips underneath. they will fall off on their own in one week. IT IS NORMAL FOR THE WOUND TO OOZE OR BE BLOODY FOR A FEW DAYS AFTER SURGERY. IF THIS HAPPENS JUST PLACE NEW DRESSING OVER IT TO AVOID STAINING CLOTHES. You may shower on post op day # 1 We ask that you do not let the water soak the wound. If it does get wet, just towel dry lightly. Please do not scrub your incision or place any type of chemical/ointment on the wound. No tub baths, pools or jacuzzis for one month. If you have any leaking or redness from your wound, or fevers, please call office Print Language: Burundian
== END 2024-08-22 13:30 | disposition home or self-care (01) ==
PROVIDERS: PCP Internal Medicine; Visit Provider Neurological Surgery
PROC: (CPT 63047; principal; 2024-08-22 11:00)
DX: M48.062 Spinal stenosis, lumbar region with neurogenic claudication (principal); M79.651 Pain in right thigh; M79.661 Pain in right lower leg; R26.2 Difficulty in walking, not elsewhere classified; M85.80 Other specified disorders of bone density and structure, unspecified site; G70.00 Myasthenia gravis without (acute) exacerbation; I35.0 Nonrheumatic aortic (valve) stenosis; E78.2 Mixed hyperlipidemia; C61 Malignant neoplasm of prostate; G47.33 Obstructive sleep apnea (adult) (pediatric); Z79.82 Long term (current) use of aspirin; Z79.52 Long term (current) use of systemic steroids; Z99.89 Dependence on other enabling machines and devices; Z79.899 Other long term (current) drug therapy; Z86.73 Personal history of transient ischemic attack (TIA), and cerebral infarction without residual deficits
CPT/HCPCS: 63047; 63048; J0131; J0690; J1720; J2003; J2004; J2405; J2704; J3010

== ENCOUNTER → 2024-08-22 08:19 | Outpatient (BNV) | payer MEDICARE, SELFPAY | PROVIDERS: PCP Internal Medicine; Visit Provider Neurological Surgery | DX: M48.062 Spinal stenosis, lumbar region with neurogenic claudication (principal); M54.16 Radiculopathy, lumbar region | CPT/HCPCS: 63047; 63048; 99499 ==

== ENCOUNTER 2024-09-13 15:17 | Outpatient (AMB) | payer MEDICARE, SELFPAY ==
--- OUTSIDE RECORDS SUMMARY | 2024-09-13 15:19 | XMS_ITS | Clinical Summary ---
Author Organization [address] [place] [address] [place] [phone] Phone Care Team Providers Care Commissary Assistant Name Role Phone Kaitlin Hair MD Primary Care Provider [phone] Allergies No known active allergies Medications OMEGA-3 FATTY ACIDS ORAL Take by mouth daily. Active aspirin 81 mg EC tablet 1 TABLET DAILY Activ e predniSONE (DELTASONE) 1 mg tablet Take 2 tablets (2 mg total) by mouth 1 (one) time each day. Active MULTIVITAMIN ORAL qd Active calcium carbonate/vitam in D3 (CALCIUM + D ORAL) qd Active DULoxetine (CYMBALTA) [address] capsule Take 1 capsule (20 mg total) by mouth 1 (one) time each day. Do not crush or chew. Active atorvastatin (LIPITOR) 10 mg tablet Take 1 tablet (10 mg total) by mouth at bedtime. 90 tablet 1 5 Active tamsulosin (FLOMAX) 0.4 mg 24 hr capsule TAKE 1 CAPSULE DAILY, 30 MINUTES AFTER SAME MEAL EVERY DAY 90 capsule 5 Active Additional Information Patient not taking.Reported on 07/15/2024 Active Problems Problem Noted Date Diagnosed Date [...] of sugary foods Malignant melanoma of skin ([facility] V24, [facility] V28) 09/08/2021 Overview (02/23/2024): NE derm Ankylosing spondylitis ([facility] V24, [facility] V28 ) 11/20/2020 Overview (02/23/2024): Notable in cervical and thoracic spine on xray Memory deficits 11/02/2020 BONIFACIO (obstructive sleep apnea) 06/04/2020 Benign non-nodular prostatic hyperplasia without lower urinary tract symptoms 11/07/2016 Occipital neuralgia 08/24/2010 Cervicocranial syndrome 07/19/2010 Degenerative arthritis of cervical spine 010 Anxiety disorder 06/19/2007 Pure hypercholesterolemia 01/04/2007 Overview (02/23/2024): Last Assessment & Plan: Well controlled lipid profile. Continue dietary modification. Myasthenia gravis without ex acerbation ([facility] V24, [facility] V28) 03/28/2006 Overview (02/23/2024): ~ 2004: On prednisone - tapered to 3 times a week follows with Dr. Lopez. Benign neoplasm of colon 11/29/2005 Overview (02/23/2024): Colonoscopy 11.29.06: tubular adenoma times two. Negative colonoscopy 12/08/2008. 7 mm polyp 02/17/2014: Malignant neoplasm of skin 11/24/2005 Overview (02/23/2024): BCC 12/16 right clavicle (nodualr & metatypical type) 05/13 Right leg Left thigh Midback IMO update Encounters Date Type Department Care Team Description 08/23/2024 Telephone [facility] Cardiology [facility] [address] [facility] [address] [place] [phone] Kaitlin Hair MD Medical Records 08/01/2024 10:00 AM EDT Consult Adult Medicine [address] [phone] Kaitlin Hair MD Preop cardiovascular exam (Primary Dx); Anxiety disorder, unspecified type; Elevated fasting glucose; Memory deficits; Myasthenia gravis without exacerbation (CMS/HCC V24, CMS/HCC V28); Pure hypercholesterolemia; BONIFACIO (obstructive sleep apnea); Mixed hyperlipidemia; Moderate aortic stenosis 08/01/2024 Telephone [facility] [address] [facility] [address] [place] [phone] Layla Latham MD records 07/24/2024 Telephone Adult Medicine [address] [phone] Kaitlin Hair MD Pre-op Exam 07/15/2024 8:45 AM EDT Office Visit Adult Medicine [address] [phone] Kaitlin Hair MD Weight loss (Primary Dx); Mixed hyperlipidemia; Anxiety disorder, unspecified type; Moderate aortic stenosis; Pure hypercholesterolemia; Osteoarthritis of lumbar spine, unspecified spinal osteoarthritis complication status; Elevated fasting glucose 06/21/2024 11:00 AM EST Ancillary Procedure [facility] [address] [place] [phone] Moderate aortic stenosis from Last 3 Months Immunizations Name Administration [...] History Date Comments Myasthenia gravis without exacerbation (CMS/HCC V24, CMS/HCC V28) 03/28/2006 DX:Myasthenia gravis without exacerbation (HCC) Historical Medical DX DX:Other a nd unspecified malignant neoplasm of skin of other and unspecified parts of face Anxiety disorder 06/19/2007 DX:Anxiety diso rder Myasthenia gravis without exacerbation ([facility] [place]24, [facility] V28) 03/28/2006 DX:Myasthenia gravis without exacerbation ([facility]); COMMENT: No meds, follows with Dr. Pham. Osteopenia DX:Osteopenia Ankylosing spondylitis ([facility] V24, [facility] V28) 11/20/2020 DX:Ankylosing spondylitis ([facility]); COMMENT: Notable in cervical and thoracic spine on xray Malignant melanoma of skin ( [facility] V24, [facility] V28) 09/08/2021 DX:Malignant melanoma of ski n ([facility]) Family History Medical History Relation Name Comments [...] Sign Reading Time Taken Comments Blood Pressure 118/60 08/01/2024 10:13 AM EDT Pulse 76 08/01/2024 10:13 AM EDT Temperature 36.4 ??C (97.5 ??F) 08/01/2024 10:13 AM E DT Respiratory Rate 20 08/01/2024 10:13 AM EDT Oxygen Saturation 98% 08/01/2024 10:13 AM EDT Inhaled Oxygen Concentration - - Weight 73 kg (161 lb) 08/01/2024 10:13 AM EDT Height 172.7 cm (5' 8 ) 08/01/2024 10:13 AM EDT Body Mass Index 24.48 08/01/2024 10:13 AM EDT Plan of Treatment Upcoming Encounters Date Type Department Care Team (Late st Contact Info) Description 09/18/2024 9:15 AM EDT Office Visit Adult Medicine [facility] [address] [place] [phone] Crispin Tellez PA [address] [place] [address] 10/21/2024 10:15 AM EDT Office Visit General Surgery - [place] [address] [phone] Korey Quintanilla DO 175 [facility] [address] [place] [address] 01/01/2025 9:50 AM EDT Office Visit [facility] [address] [facility] [address] [place] [phone] Layla Latham MD [address] [place] [address] Health Maintenance Due Date Last Done Comments RSV Immunization Adult Patients (1 - 1-dose 75+ series) 2017 Zoster Vaccines (2 of 2) 04/04/2019 02/07/2019, 03/08 Social Influencers of Health Screening 04/16/2022 Falls Risk Assessment 06/26/2024 06/26/2023 Depression Screening 08/02/2024 08/03/2023 Medicare Annual Wellness Visit 08/02/2024 08/03/2023 COVID-19 Vaccine (8 - Pfizer risk season) 2024 02/13/2024, 02/09/2023, 02/20/2022, Additional history exists Colorectal Cancer Screening: Colonoscopy 01/20/2027 01/20/2022 Cholesterol Screening (Lipid Panel) 02/12/2029 02/13/2024, 02/13/2024 DTaP,Tdap,and Td Vaccines (5 - Td or Tdap) 06/26/2033 06/26/2023, 04/01/2013, 07/04/2002, Additional history exists Pneumococcal Vaccine: 50+ Years Completed 03/03/2017, 02/26/2016, 04/16/2007 Influenza Vaccine Completed 02/13/2024, , 02/03/2022, Additional [...] age to complete this topic Meningococcal B Vaccine Aged Out No l onger eligible based on patient's age to complete this topic RSV Immunization Patients Under 20 months Aged Out No longer eligible based on patient's age to complete this topic Varicella Vaccines Aged Out No longer eligible based on patient's age to complete this topic Procedures Procedure Name Priority Date/Time Associated Diagnosis Comments THYROID STIMULATING HORMONE WITH REFLEX TO FREE T4 AND FREE T3 Routine 09/04/2024 10:50 AM EDT Weight loss HEMOGLOBIN A1C Routine 09/04/2024 10:50 AM EDT Weight loss Elevated fasting glucose EXTERNAL XRAY REPORT 08/22/2024 EXTERNAL XRAY REPORT 08/22/2024 ECG 12-LEAD Routine 08/01/2024 12:46 PM EDT Preop cardiovascular exam TRANSTHORACIC ECHOCARDIOGRAM (TTE) COMPLETE Routine 06/21/2024 11:45 AM EST Moderate aortic stenosis LIPID PANEL Routine 02/13/2024 HM DEPRESSION SCREENING Routine 08/03/2023 FALLS RISK ASSESSMENT Routine 06/26/2023 COLONOSCOPY Routine 01/20/2022 from Last 3 Months or Most Recently Relevant to Health Maintenance Results * Thyroid stimulating hormone with reflex to free t4 and free t3 (09/04/2024 10:50 AM EDT) TSH 1.00 0.40 - 4.00 mcIU/mL LAB CHEMISTRY METHOD 09/04/2024 4:40 PM EDT [facility] Blood Venous blood specimen / Unknown Venipuncture / Unknown 09/04/2024 10:50 AM EDT 09/04/2024 10:50 AM EDT us Kaitlin Hair MD LAB BLOOD ORDERABLES Final Resul t Performing Organization Address City/[facility]/ZIP Co de Phone Number [facility] [address] [place] [address], [place] [phone] * (ABNORMAL) Hemoglobin A1c (09/04/2024 10:50 AM EDT) Hemoglobin A1C 6.5(H) <6.5 % LAB CHEMISTRY METHOD 09/04/2024 2:24 PM EDT [facility] Mean Bld Glu Estim. 140 mg/dL LAB CHEMISTRY METHOD 09/04/2024 2:24 PM EDT [facility] Blood Venous blood specimen / Unknown Venipuncture / Unknown 09/04/2024 10:50 AM EDT 09/04/2024 10:50 AM EDT us Kaitlin Hair MD LAB BLOOD ORDERABLES Final Resul t Performing Organization Address City/[facility]/ZIP Co de Phone Number [facility] [address] [place] [address], [place] [phone] * External Xray Report (08/22/2024) Only the most recent of2 resultswithin the time period is included. Anatomical Region Laterality Modality Radiographic Taina ging us Provider [facility] XR PROCEDURES Final Result * ECG 12 lead (08/01/2024 12:46 PM EDT) Narrative Kaitlin Hair MD - 08/01/2024 12:46 PM EDT EKG in my office showed normal sinus rhythm and nonspecific ST-T changes. ?? I disagree with the computer reading of ST elevation/consider lateral injury. ??Final reading by cardiology still pending Kaitlin Hair MD ECG ORDERABLES Final Result * (ABNORMAL) TRANSTHORACIC ECHOCARDIOGRAM (TTE) COMPLETE (06/21/2024 11:45 AM EST) Left [address] 5.8 cm CV PACS Left [address] 4.9 cm CV PACS LA Area Sys [...] Volume 108 mL CV PACS MV Deceleration [place] 4.5 m/s2 CV PACS E Wave Deceleration [...] MD CV ECHO PROCEDURES Final Result * (ABNORMAL) Lipid panel (02/13/2024) [facility] LDL/HDL Ratio 2 0 - 4 Triglycerides 170(A) 0 - 150 mg/dL Cholesterol 126 0 - 200 mg/dL HDL 54 >=40 mg/dL LDL Cholesterol 38 0 - 100 mg/dL Blood Venous blood specimen / Unknown Result [facility] Provider LAB BLOOD ORDERABLES [place] Result * Depression Screening (08/03/2023) Pathologist [facility] Depression Screening ABSTRACTED Result [facility] Provider HEALTH MAINTENANCE Final Result * Falls Risk Assessment (06/26/2023) [facility] Falls Risk Assessment ABSTRACTED Result [facility] Provider HEALTH MAINTENANCE Final Result * Colonoscopy (01/20/2022) Pathologist [facility] Colonoscopy no interpretation , abstracted Anatomical Region Laterality Modality Other Result [facility] Provider HEALTH MAINTENANCE Final Result from Last 3 Months or Most Recently Relevant to Health Maintenance Insurance MEDICARE [facility] Care Teams Commissary Assistant Relationship Specialty Start Date End Date Kaitlin Hair MD [address] [place] [address] PCP - General 02/10/00
--- NOTE | 2024-09-13 15:24 | HO.SPINEOV ---
Intake Visit Reasons: 1st post op Intake Note: Mr. Boland is here today for his 1st post op. Arts Therapist Required: No Allergies No Known Allergies Allergy (Verified 09/13/24 15:27) Assessment & Plan Assessment & Plan (1) Lumbar stenosis with neurogenic claudication: Code(s): M48.062 - Spinal stenosis, lumbar region with neurogenic claudication Category: Medical Plan Mr Boland is here for his follow-up. He underwent a right L2-3, L3-4 decompression. He has had complete relief of his right leg pain. He has trouble was arthritic knees so he is still slow walking but the nerve pain is gone. He could not be more thankful that he is out of that discomfort. His wound is healed up beautifully. We discussed activity guidelines, restrictions and expectations after lumbar decompression. I told him to make an appointment for 6 week follow-up but if he is doing okay I told him just to call and cancel it. David Sanchez MD, PhD [facility] Coding Level of Care Code Global (99797) Diagnoses Lumbar stenosis with neurogenic claudication M48.062
== END 2024-09-13 15:47 | disposition home or self-care (01) ==
LOC: HO.HNS 15:18
PROVIDERS: PCP Internal Medicine; Visit Provider Physician Assistant
DX: M48.062 Spinal stenosis, lumbar region with neurogenic claudication (principal)
CPT/HCPCS: 99024

== ENCOUNTER → 2024-09-13 15:17 | Outpatient (BNVA) | payer MEDICARE, SELFPAY | PROVIDERS: PCP Internal Medicine; Visit Provider Physician Assistant | DX: Z48.811 Encounter for surgical aftercare following surgery on the nervous system (principal); Z98.890 Other specified postprocedural states | CPT/HCPCS: 99212 ==

== ENCOUNTER 2024-11-07 09:53 | Outpatient (REF) | payer MEDICARE, SELFPAY ==
--- NOTE | ~2024-11-07 | XR_ITS ---
CLINICAL HISTORY: M54.2 - Cervicalgia --- Additional Notes or Special Instructions: AP LAT FLEX EX 4 views cervical spine Comparison: None provided Findings: Normal alignment. Alignment is maintained with flexion and extension positioning. No acute fractures or dislocation. There is multiple level degenerative disc and facet change. No prevertebral soft tissue swelling. IMPRESSION: No acute findings. This document has been electronically signed by: Slim Paredes MD on 11/08/2024 08:50:46
--- OUTSIDE RECORDS SUMMARY | 2024-11-07 11:06 | XMS_ITS | Encounter Summary ---
Author Organization [facility] Address [address] [place] [address] Care Team Providers Care Lease Operator Name Role Phone Kaitlin Hair MD Primary Care Provider [phone] Giuliano Sanchez MD, PHD Unavailable Unava ilable David Mccall PA-C Unavailable [phone] Layla Latham MD Unavailable [phone] Lexii Singh DNP Unavailable [phone] Encounter Details Date Type Department Care Team Description 11/01/2010 Business Doc Medical Records [address] [place] [id number] Abstract, Provider Social History Tobacco Use Types Packs/Day Years Used Date Smoking Tobacco: Never Alcohol Use Standard Drinks/Week Comments No 0 (1 standard drink = 0.6 oz pur e alcohol) 3 drinks per week Sex Assigned at Date Recorded Not on file Job Start Date Occupation Industry Not on file Not on file Not on file documented as of this encounter Plan of Treatment Not on file documented as of this encounter Visit Diagnoses Not on filedocumented in this encounter Care Teams Lease Operator Relationship Specialty Start Date End Date Kaitlin Hair MD [address] [place] [address] [phone] PCP - General 02/10/00 Giuliano Sanchez MD, PHD [address] [place] [address] Surgeon Neurosurgery 06/20/22 David Mccall PA-C 175 [facility] [address] [place] [address] Specialist Neurosurgery 06/20/22 Layla Latham MD [address] [address] Specialist Cardiology 09/26/22 Lexii Singh DNP [address] [address] Specialist Nurse Practitioner Family 06/13/23 documented as of this encounter
== END 2024-11-07 09:54 | disposition home or self-care (01) ==
LOC: HO.HOSX 09:53
PROVIDERS: PCP Internal Medicine; Visit Provider Physician Assistant
DX: M54.2 Cervicalgia (principal)
CPT/HCPCS: 72050; 99212

== ENCOUNTER 2024-11-07 09:53 | Outpatient (AMB) | payer MEDICARE, SELFPAY ==
--- NOTE | 2024-11-07 10:01 | A.SPINEOV_ITS ---
Intake Visit Reasons: 2nd post op Intake Note: Mr. Boland is here today for his 2nd post op. Wire Tester Required: No Allergies No Known Allergies Allergy (Verified 11/07/24 10:02) Assessment & Plan Assessment & Plan (1) Cervicalgia: Code(s): M54.2 - Cervicalgia Category: Medical Plan HPI: Forest is a pleasant 84-year-old male who underwent right L2-3, L3-[address] Sanchez a couple of months ago. To recap he was doing very well at his 1st postoperative visit and reported complete resolution of his pain. Today, he comes in to discuss his cervical spine complaints. He brought an MRI disc with him of his cervical spine, however it is from 2021 and completed at [facility]. He reports that since his surgery he noticed his neck pain has flared up quite a bit. He does have a longstanding history of neck pain, but reports minimal treatment for this in the past. He has been to physical therapy in an attempt to mitigate his symptoms, but did not find it to be very helpful. He also has attempted [id number] medications such as Tylenol, and pain patches in an effort to mitigate his symptoms. He reports that he primarily is suffering from posterior neck pain, and denies any shooting pains down his bilateral upper extremities. He does state that he has noticed some issues with dexterity over the course of the last few years, and states that he is not able to write with a pen as well as he previously could. In addition to this over the course of the last 1 year primarily he has been dealing with the worsening balance issues, to the point where he feels like he may fall throughout the day, but has not done so yet. He denies any issues with weakness in the upper or lower extremities. He denies any bowel/bladder issues. He denies any numbness of his upper and lower extremities. Imaging: MRI of the cervical spine completed at [facility] in 2021 shows DIFFUSE SPONDYLOSIS OF THE CERVICAL SPINE WITH COMPLETE LOSS OF DISC HEIGHT AT C6-7. There is severe degenerative disc disease at C3-4, with severe bilateral foraminal stenosis at this level. There is moderate-severe central canal stenosis at C5-6, with severe right-sided and moderate left-sided foraminal stenosis at this level. No evidence of T2 signal change or myelomalacia. Exam: On examination the patient has 5/5 strength of his upper and lower extremities. He has no sensational deficits to light touch on examination. His reflexes are 2+ intact diffusely. He ambulates well but does so slowly and is slightly hunched over. His gait is not notably antalgic or spastic. (+) 1-2 beats of clonus in bilateral ankles. (-) Nuno's. (-) Babinski's. (-) bilateral straight leg raise. Plan: Forest is a pleasant 84-year-old male who underwent L2-3, L3-[address] Sanchez a couple of months ago. He has responded very well to surgery, and reports that the bulk of his lower extremity complaints have resolved. Unfortunately is now dealing with fairly severe posterior neck pain, and states that he has also been having worsening issues with dexterity and balance. I reviewed his MRI imaging from 2021 which shows fairly severe degeneration of the cervical spine. It has been 3 years since his last MRI, so I would like to have a repeat MRI done. I will start with a set of dynamic cervical spine x-rays to review for any obvious osseous abnormality that could be contributing to his pain. In the absence of any concerning findings on cervical spine x-rays, I will then order a cervical spine MRI. Diego Sanchez MD,PhD [facility] Orders: Orders XR cervical spine 4V Today M54.2 - Cervicalgia Coding Level of Care Code Est Pt Level 3 (72004) Diagnoses Cervicalgia M54.2
--- OUTSIDE RECORDS SUMMARY | 2024-11-07 10:29 | XMS_ITS | Clinical Summary ---
Author Organization [address] [place] [address] [place] [phone] Phone Care Team Providers Care Final Inspector Name Role Phone Kaitlin Hair MD Primary Care Provider [phone] Allergies No known active allergies Medications OMEGA-3 FATTY ACIDS ORAL Take by mouth daily. Active aspirin 81 mg EC tablet 1 TABLET DAILY Active predniSONE (DELTASONE) 1 mg tablet Take 2 tablets (2 mg total) by mouth 1 (one) time each day. Active MULTIVITAMIN ORAL qd Active calcium carbonate/kai min D3 (CALCIUM + D ORAL) Active DULoxetine (CYMBALTA) [address] capsule Take 1 capsule (20 mg total) by mouth 1 (one) time each day. Do not crush or chew. Active atorvastatin (LIPITOR) 10 mg tablet Take 1 tablet (10 mg total) by mouth at bedtime. 90 tablet 1 5 Active predniSONE (DELTASONE) 5 mg tablet Take 1 tablet (5 mg total) by mouth 1 (one) time each day. for 90 days 5 Active tamsulosin (FLOMAX) 0.4 mg 24 hr capsule TAKE 1 CAPSULE DAILY, 30 MINUTES AFTER SAME MEAL EVERY DAY 90 capsule 1 5 Active tamsulosin (FLOMAX) 0.4 mg 24 hr capsule TAKE 1 CAPSULE DAILY, 30 MINUTES AFTER SAME MEAL EVERY DAY 90 capsule 5 10/12/19 25 Discontinued Active Problems Problem Noted Date Diagnosed [...] with calculated aortic valve area of 1.2 cm with a dimensionless index of 0.32 and [...] of sugary foods Malignant melanoma of skin ([facility] V24, [facility] V28) 09/08/2021 Overview (02/23/2024): NE derm Ankylosing spondylitis ([facility] V24, [facility] V28 ) 11/20/2020 Overview (02/23/2024): Notable in [...] dietary modification. Myasthenia gravis without ex acerbation ([facility] V24, [facility]/HCC V28) 03/28/2006 Overview (02/23/2024): ~ 2005: On prednisone - tapered to 3 times a week follows with Dr. Lopez. Benign neoplasm of colon 11/29/2005 Overview (02/23/2024): Colonoscopy 11.29.05: tubular adenoma times two. Negative colonoscopy 12/08/2008. 7 mm polyp 02/17/2014: Malignant neoplasm of skin 11/24/2005 Overview (02/23/2024): BCC 12/16 right clavicle (nodualr & metatypical type) 05/13 Right leg Left thigh Midback IMO update Encounters Date Type Department Care Team Description 10/21/2024 10:15 AM EDT Office Visit General Surgery [facility] [address] [facility] [address] [place] [phone] Korey Quintanilla, DO Non-recurrent bilateral inguinal hernia without obstruction or gangrene (Primary Dx) 09/18/2024 9:15 AM EDT Office Visit Adult Medicine [facility] [address] [place] [phone] Crispin Tellez PA Spinal stenosis of lumbar region, unspecified whether neurogenic claudication present (Primary Dx); Cervicocranial syndrome; Spondylosis of cervical region without myelopathy or radiculopathy; Pure hypercholesterolemia; Prediabetes 08/23/2024 Telephone [facility] [address] [place] [address] Kaitlin Hair MD Medical Records from Last 3 Months Immunizations Name Administration [...] History Date Comments Myasthenia gravis without exacerbation ([facility] V24, [facility] V28) 03/28/2006 DX:Myasthenia gravis without exacerbation (HCC) Historical Medical DX DX:Other a nd unspecified malignant neoplasm of skin of other and unspecified parts of face Anxiety disorder 06/19/2007 DX:Anxiety diso rder Myasthenia gravis without exacerbation ([facility] V24, [facility] V28) 03/28/2006 DX:Myasthenia gravis without exacerbation (HCC); COMMENT: No meds, follows with Dr. Pham. Osteopenia DX:Osteopenia Ankylosing spondylitis ([facility] V24, [facility] V28) 11/20/2020 DX:Ankylosing spondylitis (H CC); COMMENT: Notable in cervical and thoracic spine on xray Malignant melanoma of skin ( CMS/HCC V24, CMS/HCC V28) 09/08/2021 DX:Malignant melanoma of ski n (HCC) Family History Medical History Relation Name [...] Sign Reading Time Taken Comments Blood Pressure 134/76 10/21/2024 10:22 AM EDT Pulse 64 10/21/2024 10:22 AM EDT Temperature 36.5 C (97.7 F) 10/21/2024 10:22 AM EDT Respiratory Rate 16 09/18/2024 9:08 AM EDT Oxygen Saturation 98% 08/01/2024 10:13 AM EDT Inhaled Oxygen Concentration - - Weight 73.9 kg (163 lb) 10/21/2024 10:22 AM EDT Height 172.7 cm (5' 8 ) 10/21/2024 10:22 AM EDT Body Mass Index 24.78 10/21/2024 10:22 AM EDT Plan of Treatment Upcoming Encounters Date Type Department Care Team (Late st Contact Info) Description 12/19/2024 9:45 AM EDT Office Visit Adult Medicine [facility] [address] [place] [address] Kaitlin Hair MD [address] [place] [address] 01/01/2025 9:50 AM EDT Office Visit [facility] [address] [facility] [address] [place] [phone] Layla Latham MD [address] [place] [address] 10/21/2025 10:30 AM EDT Office Visit General Surgery - [place] [address] [facility] [address] [place] [phone] Korey Quintanilla, 175 [facility] [address] [place] [address] Health Maintenance Due Date Last Done Comments RSV Immunization Adult Patients (1 - 1-dose 75+ series) 2017 Zoster Vaccines (2 of 2) 04/04/2019 02/07/2019, 03/08 Social Influencers of Health Screening 04/16/2022 Falls Risk Assessment 06/26/2024 06/26/2023 Depression Screening 08/02/2024 08/03/2023 Medicare Annual Wellness Visit 08/02/2024 08/03/2023 COVID-19 Vaccine (8 - Pfizer risk 2023- season) 2024 02/13/2024, 02/09/2023, 02/20/2022, Additional history [...] XRAY REPORT 08/22/2024 EXTERNAL XRAY REPORT 08/22/2024 LIPID PANEL Routine 02/13/2024 DEPRESSION SCREENING Routine 08/03/2023 FALLS RISK ASSESSMENT Routine 06/26/2023 COLONOSCOPY Routine 01/20/2022 from Last 3 Months or Most Recently Relevant to Health Maintenance Results * Thyroid stimulating hormone with reflex to free t4 and free t3 (09/04/2024 10:50 AM EDT) TSH 1.00 0.40 - 4.00 mcIU/mL LAB CHEMISTRY METHOD 09/04/2024 4:40 PM EDT [facility] Blood Venous blood specimen / Unknown Venipuncture / Unknown 09/04/2024 10:50 AM EDT 09/04/2024 10:50 AM EDT Kaitlin Hair MD LAB BLOOD ORDERABLES Final Resul t Performing Organization Address City/[facility]/ZIP Co de Phone Number [facility] [address] [place] [address], [place] [phone] * (ABNORMAL) Hemoglobin A1c (09/04/2024 10:50 AM EDT) Pathologist [facility] Hemoglobin A1C 6.5(H) <6.5 % LAB CHEMISTRY METHOD 09/04/2024 2:24 PM EDT [facility] Mean Bld Glu Estim. 140 mg/dL LAB CHEMISTRY METHOD 09/04/2024 2:24 PM EDT [facility] Blood Venous blood specimen / Unknown Venipuncture / Unknown 09/04/2024 10:50 AM EDT 09/04/2024 10:50 AM EDT Kaitlin Hair MD LAB BLOOD ORDERABLES Final Resul t Performing Organization Address [facility] Co de Phone Number [facility] [address] [place] [address], [place] [phone] * External Xray Report (08/22/2024) Only the most recent of2 resultswithin the time period is included. Anatomical Region Laterality Modality Radiographic Taina ging Provider [facility] XR PROCEDURES Final Result * (ABNORMAL) Lipid panel (02/13/2024) [facility] LDL/HDL Ratio 2 0 - 4 Triglycerides 170(A) 0 - 150 mg/dL Cholesterol 126 0 - 200 mg/dL HDL 54 >=40 mg/dL LDL Cholesterol 38 0 - 100 mg/dL Blood Venous blood specimen / Unknown Historical [facility] LAB BLOOD ORDERABLES [place] l Result * Depression Screening (08/03/2023) Pathologist [facility] Depression Screening ABSTRACTED Historical Provider HEALTH MAINTENANCE Final Result * Falls Risk Assessment (06/26/2023) Falls Risk Assessment ABSTRACTED Historical Provider HEALTH MAINTENANCE Final Result * Colonoscopy (01/20/2022) HM Colonoscopy no interpretation , abstracted Anatomical Region Laterality Modality Other Historical Provider HEALTH MAINTENANCE Final Result from Last 3 Months or Most Recently Relevant to Health Maintenance Insurance MEDICARE [facility] Care Teams Final Inspector Relationship Specialty Start Date End Date Kaitlin Hair MD [address] [place] [phone] PCP - General 02/10/00
== END 2024-11-07 10:27 | disposition home or self-care (01) ==
LOC: HO.HNS 09:54
PROVIDERS: PCP Internal Medicine; Visit Provider Physician Assistant
DX: M54.2 Cervicalgia (principal)
CPT/HCPCS: 99024

== ENCOUNTER → 2024-11-07 10:28 | Outpatient (BNV) | payer MEDICARE, SELFPAY | PROVIDERS: PCP Internal Medicine; Visit Provider Specialist | DX: M54.2 Cervicalgia (principal) | CPT/HCPCS: 72050 ==

== ENCOUNTER 2024-12-18 13:07 | Outpatient (AMB) | payer MEDICARE, SELFPAY ==
--- NOTE | 2024-12-18 13:20 | MHC.OFFVIS ---
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 He had an episode of garbled speech lasting for a few seconds. EEG in office was normal. He is presenting chiefly for chronic headache management. He reports headaches that have been ongoing for quite some time and occur daily, with varying degrees of severity. The headaches are present upon awakening and continue through the day, partially alleviating when lying down. The patient notes that Tylenol, taken in quantities of three tablets at a time, provides little relief, and he limits usage due to ineffectiveness. Additionally, the patient experiences dizziness and balance disturbances, although denies any double vision or significant changes in vision. The onset of leg heaviness has been concurrent with an active role in caregiving, specifically noted while attending to his . He also describes an aggravation of neck pain influencing the headaches. Prior therapeutic trials with prednisone were ineffective, and tizanidine has been stopped due to undesirable side effects. Imaging studies indicated non-specific white matter changes, and there is a plan for further evaluation with MRI. Memory issues are mild and transitory. [facility] Medical History (Updated 12/18/24 @ 13:41 by Shantanu Lopez MD) Depression Complex partial seizure disorder BONIFACIO on CPAP Hereditary and idiopathic neuropathy, unspecified Peripheral neuropathy Cerebral atrophy Cerebral microvascular disease Mild cognitive impairment BONIFACIO (obstructive sleep apnea) Cervical spondylolysis Arthritis Hepatitis Pure hypercholesterolemia Degenerative arthritis of cervical spine Occipital neuralgia BPH (benign prostatic hyperplasia) Ankylosing spondylitis Malignant melanoma Moderate aortic stenosis Mixed hyperlipidemia Prostate cancer Memory loss TIA (transient ischemic attack) Migraines Osteoarthritis Sleep apnea Ocular myasthenia gravis Surgical History Hx of cataract extraction History of excision of pilonidal cyst H/O colonoscopy Social History Are you a primary child care provider to a significant other at home: No Do you presently have visiting nurse or other home services: No Comment: aware of trip hazards Patient Tobacco Use Status: Never used Tobacco Review of Systems Const Details: - Neurological: Reports headaches, dizziness, leg heaviness; Denies double vision. - Musculoskeletal: Reports neck pain. - Medication: Reports use of prednisone, Tylenol, tizanidine (discontinued). - Sleep: Reports waking up with headaches, occasional lethargy; Denies difficulty breathing or swallowing. - Cardiovascular: Reports no regular use of blood pressure medication; has noted hypertension during doctor visits. - Cognitive: Reports occasional minor memory lapses. Physical Exam Neuro Other: Mental Status: Alert and oriented to person, place, and time. Normal attention. Normal spontaneous speech, fluency, and comprehension. Cranial Nerves: CN II: Visual franco full to confrontation, visual acuity intact. CN III, IV, : Pupils equal, round, reactive to light and accommodation. Extraocular movements are normal. CN V: Facial sensation is normal. CN VII: Facial movements symmetrical. CN VIII: Hearing intact to bedside conversation is normal. CN IX, X: Palate elevates symmetrically. CN XI: Shoulder shrug and head turn symmetrical. CN XII: Tongue midline without atrophy or fasciculations. Motor: Deep tendon reflexes are 1+ with flexor plantars. Gait and Station: With significant kyphosis and stooped posture slow paced gait. Extrapyramidal: Full facial expressions and blinking. No rigidity. Movements are appropriate with no tremor or abnormality. Speech: Normal; no dysarthria or tremor. Assessment & Plan Assessment & Plan (1) Myasthenia gravis: Comment: CT brain WO at [place] in November 2024: Mod diff cerebellar and cerebral, central and cortical, atrophy with mild to mod MVD ACR ABs in [facility] in 2003: Blocking titer 26 (H), binding and modulating were normal. [place]CR ABs [place] in 2012 and [place] [facility] [place]: WNL EEG at off in May 2023: WNLCTA brain and neck at [facility] in Apr 2023: OK (reported) MRI brain WO at [facility] in Apr 2023: Mild atrophy and mild MVD (reported) NCV/EMG LE (in office) This is a normal study. 03/27/23. [place] [facility] [place]: TST RYLEE 33.9, desat to 82%, snoring for 15% MRI brain WO [place] [facility] [place]: mod severe diff atrophy, mild to mod MVD MRI/MRV brain WO at [place] in Jun 2022: no change, MRV ok CT brain WO at [place] in Jun 2022: mod severe atrophy and mild to mod MVD. Code(s): G70.00 - Myasthenia gravis without (acute) exacerbation Category: Medical (2) Migraines: Code(s): G43.909 - Migraine, unspecified, not intractable, without status migrainosus Category: Medical Qualifiers: Migraine type: chronic migraine (15 or more days per month) with aura Status migrainosus presence: with status migrainosus Intractability: intractable Qualified Code(s): G43.E11 - Chronic migraine with aura, intractable, with status migrainosus (3) Cervicalgia: Comment: Meds tried for headaches: Tizanidine, Duloxetine, Topiramate Code(s): M54.2 - Cervicalgia Category: Medical (4) Cerebral atrophy: Code(s): G31.9 - Degenerative disease of nervous system, unspecified Category: Medical (5) Cerebral microvascular disease: Code(s): I67.89 - Other cerebrovascular disease Category: Medical (6) Chronic daily headache: Code(s): R51.9 - Headache, unspecified Category: Medical (7) Kyphosis (acquired) (postural): Code(s): M40.00 - Postural kyphosis, site unspecified Category: Medical Plan Impression: a: Myasthenia gravis, relatively stable on prednisone 2.5mg a day with pyridostigmine 60mg 2-3 a day b: Significant cerebral and cerebellar atrophy suggestive of a degenerative process. It is not suggestive of NPH. It can impact his all abilities, cognitive physical. c: Cerebral microvascular disease, not unusual for age, does not explain his clinical picture d: Chronic intractable daily neck pain and headache from combination of cervical spondyloarthritis and migraine e: Kyphosis, which has major impact on his walking and balance by shifting center of gravity Rec: a: Continue predinsone 2.5mg a day for MG b: Continue pyridostigmine 60mg 2-3 a day for MG c: DC tizanadine d: Try propranalol 10mg bid for headache. If it will not work, I will consider a CGRP inhibitor, which might be a better option for him or Botox Medications: New propranolol 10 mg PO BID 60 tabs 0RF Coding Level of Care Code Est Pt Level 5 (52221) Diagnoses Myasthenia gravis G70.00 Intractable chronic migraine with aura with status migrainosus G43.E11 Migraine type: chronic migraine (15 or more days per month) with aura Status migrainosus presence: with status migrainosus Intractability: intractable Cervicalgia M54.2 Cerebral atrophy G31.9 Cerebral microvascular disease I67.89 Chronic daily headache R51.9 Kyphosis (acquired) (postural) M40.00
--- OUTSIDE RECORDS SUMMARY | 2024-12-18 13:40 | XMS_ITS | Encounter Summary ---
Author Organization [facility] Address [address] [place] [address] Care Team Providers Care Damascener Name Role Phone Kaitlin Hair MD Primary Care Provider [phone] Giuliano Sanchez MD, PHD Unavailable Unava ilable David Mccall PA-C Unavailable [phone] Layla Latham MD Unavailable [phone] Lexii Singh DNP Unavailable [phone] Encounter Details Date Type Department Care Team Description 11/01/2010 Business Doc Medical Records [address] [place] [id number] Abstract, Provider Social History Tobacco Use Types [...] on filedocumented in this encounter Care Teams Damascener Relationship Specialty Start Date End Date Kaitlin Hair MD [address] [place] [address] [phone] PCP - General 02/10/00 Giuliano Sanchez MD, PHD [address] [place] [address] Surgeon Neurosurgery 06/20/22 David Mccall PA-C 175 [facility] [address] [place] [address] Specialist Neurosurgery 06/20/22 Layla Latham MD [address] [address] Specialist Cardiology 09/26/22 Lexii Singh DNP [address] [address] Specialist Nurse Practitioner Family 06/13/23 documented as of this encounter
--- OUTSIDE RECORDS SUMMARY | 2024-12-18 13:40 | XMS_ITS ---
Author Organization [address] [place] [address] [place] [phone] Phone Care Team Providers Care Human Resource Officer Name Role Phone Kaitlin Hair MD Primary Care Provider [phone] Active Problems Problem Noted Date Diagnosed Date [...] of sugary foods Malignant melanoma of skin (CMS/HCC V24, CMS/HCC V28) 09/08/2021 Overview (02/23/2024): NE derm Ankylosing spondylitis ([facility] V24, [facility] V28 ) 11/20/2020 Overview (02/23/2024): [...] dietary modification. Myasthenia gravis without ex acerbation ([facility] V24, [facility] V28) 03/28/2006 Overview (02/23/2024): ~ 2004: On prednisone - tapered to 3 times a week follows with Dr. Lopez. Benign neoplasm of colon 11/29/2005 Overview (02/23/2024): Colonoscopy 11.29.05: tubular adenoma times two. Negative colonoscopy 12/08/2008. 7 mm polyp 02/17/2014: Malignant neoplasm of skin 11/24/2005 Overview (02/23/2024): BCC 12/16 right clavicle (nodualr & metatypical type) 05/13 Right leg Left thigh Midback IMO update Current Oncology Plans No current plan information found. Past Plans No past plan information found. Radiation Treatments * No radiation treatments are documented for this patient in [facility]. Treatments may have been administered in another system. Lifetime Dose Tracking * Chemical Lifetime Dose Automatic Entry Manual Entr y CTDIvol 64.76 mGy 64.76 mGy 0 mGy
== END 2024-12-18 13:48 | disposition home or self-care (01) ==
LOC: HO.HSM 13:08
PROVIDERS: PCP Internal Medicine; Referring Provider Internal Medicine; Visit Provider Psychiatry & Neurology Neurology
DX: G70.00 Myasthenia gravis without (acute) exacerbation (principal); G43.E11 Chronic migraine with aura, intractable, with status migrainosus; M54.2 Cervicalgia; G31.9 Degenerative disease of nervous system, unspecified; I67.89 Other cerebrovascular disease; R51.9 Headache, unspecified; M40.00 Postural kyphosis, site unspecified
CPT/HCPCS: 99214

== ENCOUNTER → 2024-12-18 13:07 | Outpatient (BNVA) | payer MEDICARE, SELFPAY | PROVIDERS: PCP Internal Medicine; Referring Provider Internal Medicine; Visit Provider Psychiatry & Neurology Neurology | DX: G70.00 Myasthenia gravis without (acute) exacerbation (principal); G43.E11 Chronic migraine with aura, intractable, with status migrainosus; R51.9 Headache, unspecified; M54.2 Cervicalgia; M40.00 Postural kyphosis, site unspecified; G31.9 Degenerative disease of nervous system, unspecified; I67.89 Other cerebrovascular disease | CPT/HCPCS: 99212 ==

== ENCOUNTER 2025-01-08 11:49 | Outpatient (AMB) | payer MEDICARE, SELFPAY ==
--- NOTE | 2025-01-08 11:54 | MHC.OFFVIS ---
Intake Visit Reasons: 3 wks f/u Allergies No Known Allergies Allergy (Verified 11/07/24 10:02) Medication List - Last Reconciled 01/08/25 by Shantanu Lopez MD aspirin 81 mg PO QAM Held on 08/22/24. Instructions: Resume on 08/29/24. 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 He had an episode of garbled speech lasting for a few seconds. EEG in office was normal. He is presenting with chronic headaches. These have not responded to the administration of propranolol, suggesting a need to explore alternative therapeutic options. The patient conjectures a possible association between his headache and arthritis, though no definitive link is established. Presently, the patient has a delayed MRI of the neck and head owing to a rescheduling issue. The prospect of commencing Botox injections to manage the headache is being considered. Accompanying the headaches is a noted tendency to fall asleep during periods of inactivity, a situation absent when engaged in activity. Further investigation into medication labels and instructions indicated some level of confusion regarding headache medications. The patient continues with prednisone at a reduced dose, procured periodically over 90 days through [employer]. [facility] Medical History (Updated 12/18/24 @ 13:41 by Shantanu Lopez MD) Depression Complex partial seizure disorder BONIFACIO on CPAP Hereditary and idiopathic neuropathy, unspecified Peripheral neuropathy Cerebral atrophy Cerebral microvascular disease Mild cognitive impairment BONIFACIO (obstructive sleep apnea) Cervical spondylolysis Arthritis Hepatitis Pure hypercholesterolemia Degenerative arthritis of cervical spine Occipital neuralgia BPH (benign prostatic hyperplasia) Ankylosing spondylitis Malignant melanoma Moderate aortic stenosis Mixed hyperlipidemia Prostate cancer Memory loss TIA (transient ischemic attack) Migraines Osteoarthritis Sleep apnea Ocular myasthenia gravis Surgical History Hx of cataract extraction History of excision of pilonidal cyst H/O colonoscopy Social History Are you a primary home health care social worker to a significant other at home: No Do you presently have visiting nurse or other home services: No Comment: aware of trip hazards Patient Tobacco Use Status: Never used Tobacco Review of Systems Const Details: - Neurological: Reports chronic headaches, tendency to fall asleep when inactive. - Musculoskeletal: Reports osteoarthritis. - General: Denies unspecified symptoms. Physical Exam Neuro Other: Mental Status: Alert and oriented to person, place, and time. Normal attention. Normal spontaneous speech, fluency, and comprehension. Cranial Nerves: CN II: Visual franco full to confrontation, visual acuity intact. CN III, IV, : Pupils equal, round, reactive to light and accommodation. Extraocular movements are normal. CN V: Facial sensation is normal. CN VII: Facial movements symmetrical. CN VIII: Hearing intact to bedside conversation is normal. CN IX, X: Palate elevates symmetrically. CN XI: Shoulder shrug and head turn symmetrical. CN XII: Tongue midline without atrophy or fasciculations. Extrapyramidal: Full facial expressions and blinking. No rigidity. Movements are appropriate with no tremor or abnormality. Speech: Normal; no dysarthria or tremor. Assessment & Plan Assessment & Plan (1) Migraines: Code(s): G43.909 - Migraine, unspecified, not intractable, without status migrainosus Category: Medical Qualifiers: Migraine type: chronic migraine (15 or more days per month) with aura Status migrainosus presence: with status migrainosus Intractability: intractable Qualified Code(s): G43.E11 - Chronic migraine with aura, intractable, with status migrainosus (2) Cervicalgia: Comment: Meds tried for headaches: Tizanidine, Duloxetine, Topiramate Code(s): M54.2 - Cervicalgia Category: Medical (3) Cerebral microvascular disease: Code(s): I67.89 - Other cerebrovascular disease Category: Medical (4) Cerebral atrophy: Code(s): G31.9 - Degenerative disease of nervous system, unspecified Category: Medical (5) Myasthenia gravis: Comment: CT brain WO at [facility] in November 2024: Mod diff cerebellar and cerebral, central and cortical, atrophy with mild to mod MVD ACR ABs in [facility] in 2003: Blocking titer 26 (H), binding and modulating were normal. ACR ABs in in [address] [facility] [place]: WNL EEG at [facility] in May 2023: WNLCTA brain and neck at [facility] in Apr 2023: OK (reported) MRI brain WO at [facility] in Apr 2023: Mild atrophy and mild MVD (reported) NCV/EMG LE (in office) This is a normal study. 03/27/23. PSG at [facility] in May 2020: TST RYLEE 33.9, desat to 82%, snoring for 15% MRI brain WO at [facility] in Jul 2020: mod severe diff atrophy, mild to mod MVD MRI/MRV brain WO at [facility] in Jun 2022: no change, MRV ok CT brain WO at [facility] in Jun 2022: mod severe atrophy and mild to mod MVD. Code(s): G70.00 - Myasthenia gravis without (acute) exacerbation Category: Medical (6) Chronic daily headache: Code(s): R51.9 - Headache, unspecified Category: Medical Plan Impression: a: Myasthenia gravis, relatively stable on prednisone 2.5mg a day with pyridostigmine 60mg 2-3 a day b: Significant cerebral and cerebellar atrophy suggestive of a degenerative process. It is not suggestive of NPH. It can impact his all abilities, cognitive physical. c: Cerebral microvascular disease, not unusual for age, does not explain his clinical picture d: Chronic intractable daily neck pain and headache from combination of cervical spondyloarthritis and migraine e: Kyphosis, which has major impact on his walking and balance by shifting center of gravity f: Depression Rec: a: Continue predinsone 2.5mg a day for MG b: Continue pyridostigmine 60mg 2-3 a day for MG c: Will try botox 200 IU d: Sertraline 25mg a day Medications: New pyridostigmine bromide 60 mg PO BID 180 tabs 0RF sertraline 25 mg PO DAILY 90 tabs 0RF onabotulinumtoxinA (Botox) 200 units intramuscularly Every 3 months; 1 ea 3RF 90 days prednisone 2.5 mg PO DAILY 90 tabs 0RF Coding Level of Care Code Est Pt Level 4 (28516) Diagnoses Intractable chronic migraine with aura with status migrainosus G43.E11 Migraine type: chronic migraine (15 or more days per month) with aura Status migrainosus presence: with status migrainosus Intractability: intractable Cervicalgia M54.2 Cerebral microvascular disease I67.89 Cerebral atrophy G31.9 Myasthenia gravis G70.00 Chronic daily headache R51.9
--- OUTSIDE RECORDS SUMMARY | 2025-01-08 14:23 | XMS_ITS | Clinical Summary ---
Author Organization [address] [place] [address] [place] [phone] Phone Care Team Providers Care Clinical Cytogenetics Director Name Role Phone Kaitlin Hair MD Primary Care Provider [phone] Allergies No known active allergies Medications OMEGA-3 FATTY ACIDS ORAL Take by mouth daily. Active aspirin 81 mg EC tablet 1 TABLET DAILY Active predniSONE (DELTASONE) 1 mg tablet Take 2 tablets (2 mg total) by mouth 1 (one) time each day. Active MULTIVITAMIN ORAL qd Active calcium carbonate/vitam in D3 (CALCIUM + D ORAL) Active DULoxetine (CYMBALTA) [address] capsule Take 1 capsule (20 mg total) by mouth 1 (one) time each day. Do not crush or chew. Active atorvastatin (LIPITOR) 10 mg tablet Take 1 tablet (10 mg total) by mouth at bedtime. 90 tablet 1 5 Active atorvastatin (LIPITOR) 10 mg tablet Take 1 tablet (10 mg total) by mouth at bedtime. 90 tablet 1 5 12/11/19 25 Discontinu ed(Reorder ) Active Problems Problem Noted Date Diagnosed Date [...] of sugary foods Malignant melanoma of skin ([facility] V24, [facility] V28) 09/08/2021 Overview (02/23/2024): NE derm Ankylosing spondylitis ([facility] V24, [facility] V28 ) 11/20/2020 Overview (02/23/2024): Notable in [...] dietary modification. Myasthenia gravis without ex acerbation ([facility] V24, [facility] V28) 03/28/2006 Overview (02/23/2024): ~ 2004: On prednisone - tapered to 3 times a week follows with Dr. Lopez. Benign neoplasm of colon 11/29/2005 Overview (02/23/2024): Colonoscopy ..06: tubular adenoma times two. Negative colonoscopy 12/08/2008. 7 mm polyp 02/17/2014: Malignant neoplasm of skin 11/24/2005 Overview (02/23/2024): BCC 12/16 right clavicle (nodualr & metatypical type) 05/13 Right leg Left thigh Midback IMO update Encounters Date Type Department Care Team Description 01/01/2025 9:50 AM EDT Office Visit [facility] - [address] [place] [address] Layla Latham MD Moderate aortic stenosis (Primary Dx); Preop cardiovascular exam 12/19/2024 9:45 AM EDT Office Visit [address] [phone] Kaitlin Hair MD Anxiety disorder, unspecified type (Primary Dx); Malignant melanoma of skin (CMS/HCC V24, CMS/HCC V28); Memory deficits; Abnormal brain CT; Mixed hyperlipidemia; Myasthenia gravis without exacerbation (CMS/HCC V24, CMS/HCC V28); Nonintractable headache, unspecified chronicity pattern, unspecified headache type; Spinal stenosis, unspecified spinal region 12/06/[address] [phone] Shandra Harris NP 12/03/2024 11:57 AM EDT - 12/03/2024 11:59 PM EDT Hospital Encounter CT Scan - [address] [phone] New daily persistent headache; Imbalance Discharge Disposition: Home or Self Care 12/03/2024 11:00 AM EDT Office Visit [address] [phone] Shandra Harris NP New daily persistent headache (Primary Dx); Imbalance; Myasthenia gravis without exacerbation (CMS/HCC V24, CMS/[facility] V28) 11/25/2024 Telephone Adult Medicine [facility] [place] [address] [place] [address] Kaitlin Hair MD 10/21/2024 10:15 AM EDT Office Visit General Surgery - [address] [place] [address] Korey Quintanilla, DO Non-recurrent bilateral inguinal hernia without obstruction or gangrene (Primary Dx) from Last 3 Months Immunizations Name Administration [...] History Date Comments Myasthenia gravis without exacerbation ([facility] V24, [facility] V28) 03/28/2006 DX:Myasthenia gravis without exacerbation ([facility]) Historical Medical DX DX:Other a nd unspecified malignant neoplasm of skin of other and unspecified parts of face Anxiety disorder 06/19/2007 DX:Anxiety diso rder Myasthenia gravis without exacerbation ([facility] V24, [facility] V28) 03/28/2006 DX:Myasthenia gravis without exacerbation ([facility]); COMMENT: No meds, follows with Dr. Pham. Osteopenia DX:Osteopenia Ankylosing spondylitis ([facility] V24, [facility] V28) 11/20/2020 DX:Ankylosing spondylitis ([facility]); COMMENT: Notable in cervical and thoracic spine on xray Malignant melanoma of skin ( [facility] V24, [facility] V28) 09/08/2021 DX:Malignant melanoma of ski n ([facility]) Family History Medical History Relation Name Comments [...] Sign Reading Time Taken Comments Blood Pressure 132/96 01/01/2025 9:56 AM EDT Pulse 82 01/01/2025 9:56 AM EDT Temperature 36.5 C (97.7 F) 12/19/2024 10:02 AM EDT Respiratory Rate 12 12/19/2024 10:02 AM EDT Oxygen Saturation 98% 01/01/2025 9:56 AM EDT Inhaled Oxygen Concentration - - Weight 74.4 kg (164 lb) 01/01/2025 9:56 AM EDT Height 175.3 cm (5' 9 ) 01/01/2025 9:56 AM EDT Body Mass Index 24.22 01/01/2025 9:56 AM EDT Plan of Treatment Upcoming Encounters Date Type Department Care Team (Late st Contact Info) Description 01/20/2025 11:30 AM EDT Appointment Radiology Department - [address] [phone] 06/24/2025 9:30 AM EST Office Visit Adult Medicine [address] [phone] Kaitlin Hair MD [address] [place] [address] 10/21/2025 10:30 AM EDT Office Visit General Surgery - [place] [address] [facility] [address] [place] [phone] Korey Quintanilla, [address] [phone] 12/31/2025 11:00 AM EDT Ancillary Procedure [facility] - [facility] [address] [facility] [address] [place] [phone] Health Maintenance Due Date Last Done Comments RSV Immunization Adult Patients (1 - 1-dose 75+ series) 2017 Zoster Vaccines (2 of 2) 04/04/2019 02/07/2019, 03/08 Social Influencers of Health Screening 04/16/2022 Depression Screening 05/08/2024 08/03/2023 Falls Risk Assessment 06/26/2024 06/26/2023 Medicare Annual Wellness Visit 08/02/2024 08/03/2023 COVID-19 Vaccine (8 - Pfizer risk season) 2025 02/13/2024, 02/09/2023, 02/20/2022, Additional history exists Influenza Vaccine (#1) 2025 , 02/09/2023, 02/03/2022, Additional history exists Colorectal Cancer Screening: Colonoscopy 01/20/2027 01/20/2022 Cholesterol Screening (Lipid Panel) 12/20/2029 12/20/2024, 02/13/2024, 02/13/2024 DTaP,Tdap,and Td Vaccines (5 - Td or Tdap) 06/26/2033 06/26/2023, 04/01/2013, 07/04/2002, Additional history exists Pneumococcal Vaccine: 50+ Years Completed 03/03/2017, 02/26/2016, 04/16/2007 HIB Vaccines Aged Out No longer eligi [...] Procedure Name Priority Date/Time Associated Diagnosis Comments LIPID PANEL WITH REFLEX TO DIRECT LDL Routine 12/20/2024 9:40 AM EDT Spinal stenosis of lumbar region, unspecified whether neurogenic claudication present 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 Pure hypercholesterolemia Prediabetes HEMOGLOBIN A1C Routine 12/20/2024 9:40 AM EDT Spinal stenosis of lumbar region, unspecified whether neurogenic claudication present 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 Pure hypercholesterolemia Prediabetes COMPREHENSIVE METABOLIC PANEL Routine 12/20/2024 9:40 AM EDT Spinal stenosis of lumbar region, unspecified whether neurogenic claudication present 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 Pure hypercholesterolemia Prediabetes CT HEAD WO CONTRAST STAT 12/03/2024 1 2:04 PM EDT New daily persistent headache Imbalance EXTERNAL XRAY REPORT 11/07/2024 EXTERNAL XRAY REPORT 11/07/2024 DEPRESSION SCREENING Routine 08/03/2023 FALLS RISK ASSESSMENT Routine 06/26/2023 COLONOSCOPY Routine 01/20/2022 from Last 3 Months or Most Recently Relevant to Health Maintenance Results * Lipid panel with reflex to direct LDL (12/20/2024 9:40 AM EDT) Cholesterol 117 0 - 200 mg/dL LAB CHEMISTRY METHOD 12/20/2024 1:10 PM EDT [facility] Triglycerides 145 0 - 150 mg/dL LAB CHEMISTRY METHOD 12/20/2024 1:10 PM EDT [facility] HDL 55 >=40 mg/dL LAB CHEMISTRY METHOD 12/20/2024 1:10 PM EDT [facility] LDL Calculated 33 0 - 100 mg/dL LAB CHEMISTRY METHOD 12/20/2024 1:10 PM EDT [facility] Comment:Estimated LDL Calcul ated using equation: Total cholesterol - HDL cholesterol - (Triglycerides/5) VLDL Cholesterol John 29 mg/dL LAB CHEMISTRY METHOD 12/20/2024 1:10 PM EDT [facility] Non HDL Chol. (LDL+VLDL) 62 <145 mg/dL LAB CHEMISTRY METHOD 12/20/2024 1:10 PM EDT [facility] Chol/HDL Ratio 2.1 0.0 - 4.4 LAB CHEMISTRY METHOD 12/20/2024 1:10 PM EDT [facility] Blood Venous blood specimen / Unknown Venipuncture / Unknown 12/20/2024 9:40 AM EDT 12/20/2024 9:40 AM EDT Crispin MASON LAB BLOOD ORDERABLES Fin al Result Performing Organization Address [facility] de Phone Number [facility] [address] [place] [address], [place] [phone] * (ABNORMAL) Hemoglobin A1c (12/20/2024 9:40 AM EDT) Pathologist [facility] Hemoglobin A1C 6.5(H) <6.5 % LAB CHEMISTRY METHOD 12/20/2024 1:24 PM EDT [facility] Mean Bld Glu Estim. 140 mg/dL LAB CHEMISTRY METHOD 12/20/2024 1:24 PM EDT [facility] Blood Venous blood specimen / Unknown Venipuncture / Unknown 12/20/2024 9:40 AM EDT 12/20/2024 9:40 AM EDT us Crispin MASON LAB BLOOD ORDERABLES Fin al Result Performing Organization Address [facility] de Phone Number [facility] [address] [place] [address], [place] [phone] * (ABNORMAL) Comprehensive metabolic panel (12/20/2024 9:40 AM EDT) Pathologist [facility] Sodium 142 133 - 145 mmol/L LAB CHEMISTRY METHOD 12/20/2024 1:10 PM EDT [facility] Potassium 4.0 3.5 - 5.5 mmol/L LAB CHEMISTRY METHOD 12/20/2024 1:10 PM EDT [facility] Chloride 111(H) 96 - 110 mmol/L LAB CHEMISTRY METHOD 12/20/2024 1:10 PM [facility] CO2 28 21 - 32 mmol/L LAB CHEMISTRY METHOD 12/20/2024 1:10 PM [facility] Anion Gap 3 3 - 11 LAB CHEMISTRY METHOD 12/20/2024 1:10 PM [facility] Glucose 109(H) 70 - 100 mg/dL LAB CHEMISTRY METHOD 12/20/2024 1:10 PM [facility] BUN 14 5 - 25 mg/dL LAB CHEMISTRY METHOD 12/20/2024 1:10 PM [facility] Creatinine 0.91 0.70 - 1.30 mg/dL LAB CHEMISTRY METHOD 12/20/2024 1:10 PM [facility] eGFR 84 >=60 mL/min/1. 73m2 LAB CHEMISTRY METHOD 12/20/2024 1:10 PM [facility] Comment:Calculation based on the Chronic Kidney Disease Epidemiology Collaboration (CKD-EPI) equation refit without adjustment for race. BUN/Creatinine Ratio 15.4 LAB CHEMISTRY METHOD 12/20/2024 1:10 PM [facility] Calcium 8.9 8.5 - 10.5 mg/dL LAB CHEMISTRY METHOD 12/20/2024 1:10 PM [facility] AST (SGOT) 30 10 - 42 unit/L LAB CHEMISTRY METHOD 12/20/2024 1:10 PM [facility] ALT (SGPT) 37 10 - 60 unit/L LAB CHEMISTRY METHOD 12/20/2024 1:10 PM [facility] Alkaline Phosphatase 66 42 - 121 unit/L LAB CHEMISTRY METHOD 12/20/2024 1:10 PM [facility] Total Protein 6.8 6.0 - 8.0 g/dL LAB CHEMISTRY METHOD 12/20/2024 1:10 PM [facility] Albumin 3.9 3.2 - 5.0 g/dL LAB CHEMISTRY METHOD 12/20/2024 1:10 PM EDT [facility] Total Bilirubin 0.7 0.0 - 1.4 mg/dL LAB CHEMISTRY METHOD 12/20/2024 1:10 PM EDT [facility] Blood Venous blood specimen / Unknown Venipuncture / Unknown 12/20/2024 9:40 AM EDT 12/20/2024 9:40 AM EDT us Crispin MASON LAB BLOOD ORDERABLES Fin al Result [facility] [address] [place] [address], * CT Head wo Contrast (12/03/2024 12:04 PM EDT) Anatomical Region Laterality Modality Head and Neck Computed Tomogra phy 12/03/2024 12:4 6 PM EDT Narrative 12/03/2024 12:[address] without intravenous contrast. History dizziness. Headaches. Examination was performed on multidetector scanner without administration of intravenous contrast. Comparison with some previous head CT from 06/22/2022 and MRI from 07/02/2022. There is no evidence of midline shift, extra or intra-axial blood fluid collections. There is no visible masses or mass effect in the brain and cerebellum. There is are sulcal ventricular prominence with out of proportion dilatation of the ventricular system. Temporal horns of the lateral ventricles are also dilated and appear to be slightly larger than on prior study. There are extensive white matter hypodensities, mostly involving periventricular and deep white matter of both cerebral hemispheres. There are atherosclerotic calcifications in the distal vertebral arteries and cavernous portions of the internal carotid arteries. Visualized paranasal sinuses and mastoid processes are unremarkable. CONCLUSIONS: Dilatation of the ventricular system including temporal horns slightly more prominent than on prior examination. Extensive white matter periventricular and deep white matter hypodensities. No evidence of intracranial hemorrhage or masses. Atherosclerotic changes. Normal pressure hydrocephalus should be considered and further evaluated clinically. -------- FINAL REPORT -------- Dictated By: Norma Krueger Dictated Date: 12/03/2024 12:46 ET Assigned Physician: Norma Krueger Reviewed and Electronically Signed By: Norma Krueger Signed Date: 12/03/2024 12:54 ET Workstation ID: [id number] Transcribed By: Self Edit Transcribed Date: 12/03/2024 12:46 ET Procedure Note Norma Krueger MD - 12/03/[address] without intravenous contrast. History dizziness. Headaches. Examination was performed on multidetector scanner without administrationof intravenous contrast. Comparison with some previous head CT from06/22/2022 and MRI from 07/02/2022. There is no evidence of midline shift, extra or intra-axial blood fluidcollections. There is no visible masses or mass effect in the brain andcerebellum. There is are sulcal ventricular prominence with out of proportiondilatation of the ventricular system. Temporal horns of the lateralventricles are also dilated and appear to be slightly larger than on priorstudy. There are extensive white matter hypodensities, mostly involvingperiventricular and deep white matter of both cerebral hemispheres. Thereare atherosclerotic calcifications in the distal vertebral arteries andcavernous portions of the internal carotid arteries. Visualized paranasalsinuses and mastoid processes are unremarkable. CONCLUSIONS: Dilatation of the ventricular system including temporal hornsslightly more prominent than on prior examination. Extensive white matterperiventricular and deep white matter hypodensities. No evidence ofintracranial hemorrhage or masses. Atherosclerotic changes. Normalpressure hydrocephalus should be considered and further evaluatedclinically. -------- FINAL REPORT -------- Dictated By: Norma Krueger Dictated Date: 12/03/2024 12:46 ET Assigned Physician: Norma Krueger Reviewed and Electronically Signed By: Norma Krueger Signed Date: 12/03/2024 12:54 ET Workstation ID: [id number] Transcribed By: Self Edit Transcribed Date: 12/03/2024 12:46 ET Shandra Harris NP IMG CT PROCEDURES Final Resu lt * External Xray Report (11/07/2024) Only the most recent of2 resultswithin the time period is included. Anatomical Region Laterality Modality Radiographic Taina ging Provider Nicole Onbase IMG XR PROCEDURES Final Result * Depression Screening (08/03/2023) Depression Screening ABSTRACTED Historical Provider HEALTH MAINTENANCE Final Result * Falls Risk Assessment (06/26/2023) Pathologist [facility] Falls Risk Assessment ABSTRACTED Historical Provider HEALTH MAINTENANCE Final Result * Colonoscopy (01/20/2022) Colonoscopy no interpretation , abstracted Anatomical Region Laterality Modality Other Historical Provider HEALTH MAINTENANCE Final Result from Last 3 Months or Most Recently Relevant to Health Maintenance Insurance MEDICARE [facility] Care Teams Clinical Cytogenetics Director Relationship Specialty Start Date End Date Kaitlin Hair MD [address] [place] [address] [facility] - General 02/10/00
--- OUTSIDE RECORDS SUMMARY | 2025-01-08 14:23 | XMS_ITS ---
Author Name [facility] Organization Unknown Care Team Organization Name Specialty Phone Email Start Date End Da te [facility] 12/25/2024 [facility] Primary [facility] 03/15/2022 12/25/2023
--- OUTSIDE RECORDS SUMMARY | 2025-01-08 14:23 | XMS_ITS ---
Author Organization [address] [place] [address] [place] [phone] Phone Care Team Providers Care Professor Of Criminal Justice Name Role Phone Kaitlin Hair MD Primary Care Provider [phone] Active Problems Problem Noted Date Diagnosed Date [...] 09/08/2021 Overview (02/23/2024): [place] derm Ankylosing spondylitis ([facility] V24, [facility] V28 ) 11/20/2020 Overview (02/23/2024): [...] dietary modification. Myasthenia gravis without ex acerbation ([facility] [place], [facility] V28) 03/28/2006 Overview (02/23/2024): ~ 2004: On [...] treatments are documented for this patient in [facility]. Treatments may have been administered in another system. Lifetime Dose Tracking * Chemical Lifetime Dose Automatic Entry Manual Entr y CTDIvol 64.76 mGy 64.76 mGy 0 mGy
== END 2025-01-08 12:07 | disposition home or self-care (01) ==
LOC: HO.HSM 11:50
PROVIDERS: PCP Internal Medicine; Visit Provider Psychiatry & Neurology Neurology
DX: G43.E11 Chronic migraine with aura, intractable, with status migrainosus (principal); M54.2 Cervicalgia; I67.89 Other cerebrovascular disease; G31.9 Degenerative disease of nervous system, unspecified; G70.00 Myasthenia gravis without (acute) exacerbation; R51.9 Headache, unspecified
CPT/HCPCS: 99214

== ENCOUNTER → 2025-01-08 11:49 | Outpatient (BNVA) | payer MEDICARE, SELFPAY | PROVIDERS: PCP Internal Medicine; Visit Provider Psychiatry & Neurology Neurology | DX: G43.E11 Chronic migraine with aura, intractable, with status migrainosus (principal); R51.9 Headache, unspecified; G70.00 Myasthenia gravis without (acute) exacerbation; G31.9 Degenerative disease of nervous system, unspecified; M54.2 Cervicalgia; I67.89 Other cerebrovascular disease; Z79.52 Long term (current) use of systemic steroids; Z79.899 Other long term (current) drug therapy | CPT/HCPCS: 99212 ==

== ENCOUNTER 2025-02-13 09:07 | Outpatient (AMB) | payer MEDICARE, SELFPAY ==
--- NOTE | 2025-02-13 09:26 | A.OFFVIS_ITS ---
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 He had an episode of garbled speech lasting for a few seconds. EEG in office was normal. He is presenting with Botox injection for spasticity related symptoms. He de scribes a chronic headache that fluctuates in severity. Some days it is more intense, while on others it is less severe. Despite treatment, he has not noted any significant change in the pattern or severity of the headaches from before starting medication. In terms of mood, the patient reports being occasionally grouchy, but his mood remains stable without significant improvement following medication trials. Sneezing attacks have been a recent concern, characterized by sudden onset and frequent repetitions. The patient has a history of a hip replacement, which currently impacts his mobility, necessitating the use of a cane. During this visit, the primary focus is on the administration of Botulinum toxin for muscle spasticity management. The patient understands the associated risks and experiences localized side effects such as temporary bruising or muscle weakness, which he considers manageable. Immunization follows his established routine schedule every three months. [facility] Medical History (Updated 02/13/25 @ 09:42 by Shnatanu Lopez MD) Depression Complex partial seizure disorder BONIFACIO on CPAP Hereditary and idiopathic neuropathy, unspecified Peripheral neuropathy Cerebral atrophy Cerebral microvascular disease Mild cognitive impairment BONIFACIO (obstructive sleep apnea) Cervical spondylolysis Arthritis Hepatitis Pure hypercholesterolemia Degenerative arthritis of cervical spine Occipital neuralgia BPH (benign prostatic hyperplasia) Ankylosing spondylitis Malignant melanoma Moderate aortic stenosis Mixed hyperlipidemia Prostate cancer Memory loss TIA (transient ischemic attack) Migraines Osteoarthritis Sleep apnea Ocular myasthenia gravis Surgical History Hx of cataract extraction History of excision of pilonidal cyst H/O colonoscopy Social History Are you a primary home care consultant to a significant other at home: No Do you presently have visiting nurse or other home services: No Comment: aware of trip hazards Patient Tobacco Use Status: Never used Tobacco Review of Systems Const Details: - Neurological: Reports chronic headache, variable in severity. - Mood: Reports occasional grouchiness; no significant changes with medication. - Respiratory: Reports sneezing attacks; denies other respiratory symptoms. Physical Exam Neuro Other: Mental Status: Alert and oriented to person, place, and time. Normal attention. Normal spontaneous speech, fluency, and comprehension. No obvious issues with mood and memory. Affect is appropriate. Cranial Nerves: CN II: Visual franco full to confrontation, visual acuity intact. CN III, IV, : Pupils equal, round, reactive to light and accommodation. Extraocular movements are normal. CN V: Facial sensation is normal. CN VII: Facial movements symmetrical. CN VIII: Hearing intact to bedside conversation is normal. CN IX, X: Palate elevates symmetrically. CN XI: Shoulder shrug and head turn symmetrical. CN XII: Tongue midline without atrophy or fasciculations. Extrapyramidal: Full facial expressions and blinking. No rigidity. Movements are appropriate with no tremor or abnormality. Speech: Normal; no dysarthria or tremor. Office Procedures Botulinum toxin Injection 54583 - Migraine Procedure code (CPT) selection complete Office Meds onabotulinumtoxinA 200 unit solution for injection Performing Provider: Shantanu Lopez MD [place] [facility] [place] [facility] [place] Administered by: Shantanu Lopez MD on 02/13/25 09:42 Dose Route Admin Location Dispensed Lot Number Expiration Date [facility] Supervisor 200 unit IM 200 units [id number] [employer] /[employer] Total Dispensed Waste 200 units 0 % Assessment & Plan Assessment & Plan (1) Myasthenia gravis: Comment: CT brain WO at [facility] in November 2024: Mod diff cerebellar and cerebral, central and cortical, atrophy with mild to mod MVD ACR ABs in [facility] in 2003: Blocking titer 26 (H), binding and modulating were normal. ACR ABs [place] in 2012 and [place] [facility] [place]: [facility]NL EEG at [facility] in May 2023: WNLCTA brain and neck at [facility] in Apr 2023: OK (reported) MRI brain WO at [facility] in Apr 2023: Mild atrophy and mild MVD (reported) NCV/EMG LE (in office) This is a normal study. 03/27/23. [place] [facility] [place]: TST RYLEE 33.9, desat to 82%, snoring for 15% [place] brain [place] [facility] [place]: mod severe diff atrophy, mild to mod MVD MRI/MRV brain WO at [facility] in Jun 2022: no change, MRV ok CT brain WO at [facility] in Jun 2022: mod severe atrophy and mild to mod MVD. Code(s): G70.00 - Myasthenia gravis without (acute) exacerbation Category: Medical (2) Cervicalgia: Comment: Meds tried for headaches: Tizanidine, Duloxetine, Topiramate Code(s): M54.2 - Cervicalgia Category: Medical (3) Lumbar stenosis with neurogenic claudication: Code(s): M48.062 - Spinal stenosis, lumbar region with neurogenic claudication Category: Medical (4) Cerebral microvascular disease: Code(s): I67.89 - Other cerebrovascular disease Category: Medical (5) Cerebral atrophy: Code(s): G31.9 - Degenerative disease of nervous system, unspecified Category: Medical (6) Chronic migraine without aura: Code(s): G43.709 - Chronic migraine without aura, not intractable, without status migrainosus Category: Medical Qualifiers: Status migrainosus presence: without status migrainosus Intractability: intractable Qualified Code(s): G43.719 - Chronic migraine without aura, intractable, without status migrainosus Plan Impression: a: Myasthenia gravis, relatively stable on prednisone 2.5mg a day with pyridostigmine 60mg 2-3 a day b: Significant cerebral and cerebellar atrophy suggestive of a degenerative process. It is not suggestive of NPH. It can impact his all abilities, cognitive physical. c: Cerebral microvascular disease, not unusual for age, does not explain his clinical picture d: Chronic intractable daily neck pain and headache from combination of cervical spondyloarthritis and migraine e: Kyphosis, which has major impact on his walking and balance by shifting center of gravity f: Depression Rec: a: Continue predinsone 2.5mg a day for MG b: Continue pyridostigmine 60mg 2-3 a day for MG d: Sertraline 25mg a day e: Botox injections done as per migraine protocol Indication:?[Chronic migraine ] Preparation:?Botox? (onabotulinumtoxinA) reconstituted with 0.9% preservative- free normal saline to a final concentration of [e.g., 100 units/2.5 mL]. Consent:?Risks (e.g., localized weakness, ptosis, injection site pain, flu-like symptoms), benefits, and alternatives were discussed in detail. The patient understood and gave verbal and written informed consent. Procedure: The patient was positioned comfortably. Target muscle groups were identified based on clinical examination and functional anatomy. The skin over the injection sites was cleaned with alcohol. No topical or local anesthetic was used unless otherwise stated. Botulinum toxin was injected using a sterile -gauge needle into the muscles/sites as per standard protocol (Sites indicated on the diagram): Total Dose: 200 units Needle EMG guidance: not used] Muscles injected: Frontalis, temporalis, trazepius, suprascapular, infrascapular, paracervical The patient tolerated the procedure well with no immediate complications. No significant bleeding, hematoma, or adverse reaction noted. Bandages applied as needed. Orders: Orders AMB Botulinum toxin Injection Today G43.709 - Chronic migraine without aura, not intractable, without status migrainosus Coding Level of Care Code Est Pt Level 4 (31689) Diagnoses Myasthenia gravis G70.00 Cervicalgia M54.2 Lumbar stenosis with neurogenic claudication M48.062 Cerebral microvascular disease I67.89 Cerebral atrophy G31.9 Intractable chronic migraine without aura and without status migrainosus G43.719 Status migrainosus presence: without status migrainosus Intractability: intractable CPT Codes Botox Injection - Botox 3: 41130 - Migraine ([id number])
== END 2025-02-13 09:55 | disposition home or self-care (01) ==
LOC: HO.HSM 09:08
PROVIDERS: PCP Internal Medicine; Visit Provider Psychiatry & Neurology Neurology
DX: G43.719 Chronic migraine without aura, intractable, without status migrainosus (principal); G70.00 Myasthenia gravis without (acute) exacerbation; M54.2 Cervicalgia; M48.062 Spinal stenosis, lumbar region with neurogenic claudication; I67.89 Other cerebrovascular disease; G31.9 Degenerative disease of nervous system, unspecified
CPT/HCPCS: 64615

== ENCOUNTER → 2025-02-13 09:07 | Outpatient (BNVA) | payer MEDICARE, SELFPAY | PROVIDERS: PCP Internal Medicine; Visit Provider Psychiatry & Neurology Neurology | DX: G43.719 Chronic migraine without aura, intractable, without status migrainosus (principal); G31.9 Degenerative disease of nervous system, unspecified; I67.89 Other cerebrovascular disease; M48.062 Spinal stenosis, lumbar region with neurogenic claudication; M54.2 Cervicalgia; G70.00 Myasthenia gravis without (acute) exacerbation | CPT/HCPCS: 64615; J0585 ==

== ENCOUNTER 2025-03-04 14:09 | Outpatient (AMB) | payer MEDICARE, SELFPAY ==
--- NOTE | 2025-03-04 14:15 | A.SPINEOV_ITS ---
Intake Visit Reasons: Neck pain Intake Note: Mr. Boland is here today c/o severe neck pain. 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 He reports that after our last visit his had a right total hip replacement, so he has been focusing on helping her at home. She recently was able to start ambulating independently and is back to regular ADLs. Therefore he would now like to re-address his cervical spine concerns. During his last office visit we discussed the possibility of ordering a new cervical MRI as his last MRI is from 2021. His posterior neck pain continues to worsen per his report. He now has also been getting fairly severe headaches and is scheduled to see his neurologist and review a recent Brain MRI ordered by his primary care office. He reports that he has continued to suffer from balance/dexterity issues. See previous office visit notes for specifics regarding this issue. I am fairly concerned that the severe degeneration seen on MRI imaging from [address] has progressed[address] will [address] an order for cervical MRI. Diego Sanchez MD,PhD [facility] Orders: Orders MR cervical spine wo con Today M54.12 - Radiculopathy, cervical region Coding Level of Care Code Est Pt Level 2 (73774) Diagnoses Cervical myelopathy G95.9
--- OUTSIDE RECORDS SUMMARY | 2025-03-04 18:33 | XMS_ITS | Clinical Summary ---
Author Organization [address] [place] [address] [place] [phone] Phone Care Team Providers Care Senior Quality Analyst Name Role Phone Kaitlin Hair MD Primary Care Provider [phone] Allergies No known active allergies Medications OMEGA-3 [...] tamsulosin (FLOMAX) 0.4 mg 24 hr capsule Take 1 capsule (0.4 mg total) by mouth 1 (one) time each day. Capsules should be taken 30 minutes following the same meal each day. 90 capsule 1 5 08/04/19 26 Active Active Problems Problem Noted Date Diagnosed Date Normal pressure hydrocephalus (CMS/HCC V24, CMS/ HCC V28) 01/21/2025 Overview (01/21/2025): 12/03/24: Seen on CT scan of head, possible Normal pressure hydrocephalus should be considered. 01/21/25: Out of proportion with subcortical atrophy dilatation of the ventricular system with progressive dilatation of the temporal horns of the lateral ventricles suggestive of normal pressure hydrocephalus. Follow by Dr. Lopez, results sent to him. Patient follow up to discusses findings. TIA (transient ischemic attack) 04/10/2024 Assessment & [...] 12 lead Moderate aortic stenosis 09/08/2022 Overview (01/29/2025): - Echocardiogram: 04/2024, Hyperdynamic LV systolic function, EF >70%, mid cavitary gradient 17 mmHg, increases to 32 mmHg with Valsalva, moderate aortic stenosis, possible mild mitral stenosis, trace mitral and aortic insufficiency. Aortic valve area 1.3 cm , mean gradient 30 mmHg. Mitral valve mean gradient 5 mmHg, valve area 2.4 cm by pressure half-time. Liver cyst unchanged from prior. Assessment & Plan (04/10/2024 10:09 AM EST): [...] of sugary foods Malignant melanoma of skin ([facility] V24, [facility] V28) 09/08/2021 Overview (02/23/2024): NE derm Ankylosing spondylitis ([facility] V24, [facility] V28 ) 11/20/2020 Overview (02/23/2024): [...] dietary modification. Myasthenia gravis without ex acerbation (CMS/[facility] V24, CMS/[facility] V28) 03/28/2006 Overview (02/23/2024): ~ 2005: On [...] Encounters Date Type Department Care Team Description 01/21/[address] [phone] Shandra Harris NP 01/20/2025 11:17 AM EDT - 01/20/2025 11:59 PM EDT Hospital Encounter Radiology Department - [address] [phone]; New daily persistent headache; Imbalance; Normal pressure hydrocephalus (CMS/HCC V24, CMS/HCC V28) Discharge Disposition: Home or Self Care 01/01/2025 9:50 AM EDT Office Visit [facility] [address] [facility] [address] [place] [address] Layla Latham MD Moderate aortic stenosis (Primary Dx); Preop cardiovascular exam; Postural lightheadedness; Pure hypercholesterolemia; Atypical chest pain 12/19/2024 9:45 AM EDT Office Visit Adult [address] [phone] Kaitlin Hair MD Anxiety disorder, unspecified type (Primary Dx); Malignant melanoma of skin (CMS/HCC V24, CMS/HCC V28); Memory deficits; Abnormal brain CT; Mixed hyperlipidemia; Myasthenia gravis without exacerbation (CMS/HCC V24, CMS/HCC V28); Nonintractable headache, unspecified chronicity pattern, unspecified headache type; Spinal stenosis, unspecified spinal region 12/06/2024 Telephone Adult Medicine [address] [phone] Shandra Harris NP 12/03/2024 11:57 AM EDT - 12/03/2024 11:59 PM EDT Hospital Encounter CT Scan [address] [phone] New daily persistent headache; Imbalance Discharge Disposition: Home or Self Care 12/03/2024 11:00 AM EDT Office Visit Adult Medicine [address] [phone] Shandra Harris NP New daily persistent headache (Primary Dx); Imbalance; Myasthenia gravis without exacerbation ([facility] V24, [facility] V28) from Last 3 Months Immunizations Immunization Administration Dates Next Due H1N1 Inj Preservative [...] History Date Comments Myasthenia gravis without exacerbation ([facility] V24, [facility] V28) 03/28/2006 DX:Myasthenia gravis without exacerbation ([facility]) Historical Medical DX DX:Other a nd unspecified malignant neoplasm of skin of other and unspecified parts of face Anxiety disorder 06/19/2007 DX:Anxiety diso rder Myasthenia gravis without exacerbation ([facility] V24, [facility] V28) 03/28/2006 DX:Myasthenia gravis without exacerbation ([facility]); COMMENT: No meds, follows with Dr. Pham. Osteopenia DX:Osteopenia Ankylosing spondylitis ([facility] V24, [facility] V28) 11/20/2020 DX:Ankylosing spondylitis ([facility]); COMMENT: Notable in cervical and thoracic spine on xray Malignant melanoma of skin ( [facility] V24, [facility] V28) 09/08/2021 DX:Malignant melanoma of ski n ([facility]) Family History Medical History Relation [...] Care Team (Late st Contact Info) Description 06/24/2025 9:30 AM EST Office Visit Adult Medicine [facility] [address] [place] [phone] Kaitlin Hair MD [address] [place] [phone] 10/21/2025 10:30 AM EDT Office Visit General Surgery [facility] [address] [facility] [address] [place] [phone] Korey Quintanilla, [address] [place] [phone] 12/31/2025 11:00 AM EDT Ancillary Procedure [facility] [address] [facility] [address] [place] [phone] Health Maintenance Due Date Last Done Comments RSV Immunization Adult Patients (1 - 1-dose 75+ series) 2017 Zoster Vaccines (2 of 2) 04/04/2019 02/07/2019, 03/08 Social Influencers of Health Screening 04/16/2022 Depression Screening 05/08/2024 08/03/2023 Falls Risk Assessment 06/26/2024 06/26/2023 Medicare Annual Wellness Visit 08/02/2024 08/03/2023 Colorectal Cancer Screening: Colonoscopy 01/20/2027 01/20/2022 Cholesterol Screening (Lipid Panel) 12/20/2029 12/20/2024, 02/13/2024, 02/13/2024 DTaP,Tdap,and Td Vaccines (5 - Td or Tdap) 06/26/2033 06/26/2023, 04/01/2013, 07/04/2002, Additional history exists Pneumococcal Vaccine: 50+ Years Completed 03/03/2017, 02/26/2016, 04/16/2007 COVID-19 Vaccine Completed 02/18/2025, 12/2023, 02/09/2023, Additional history exists Influenza Vaccine Completed 02/18/2025, , 02/09/2023, Additional history exists HIB Vaccines Aged Out [...] Procedure Name Priority Date/Time Associated Diagnosis Comments MR BRAIN WO CONTRAST Routine 01/20/2025 12:38 PM EDT Abnormal brain CT New daily persistent headache Imbalance Normal pressure hydrocephalus (CMS/HCC V24, CMS/HCC V28) [place] SLEEP STUDY ATTENDED Routine 01/08/2025 7:54 AM EDT LIPID PANEL WITH REFLEX TO DIRECT LDL [...] PM EDT New daily persistent headache Imbalance DEPRESSION SCREENING Routine 08/03/2023 FALLS RISK ASSESSMENT Routine 06/26/2023 COLONOSCOPY Routine 01/20/2022 from Last 3 Months or Most Recently Relevant to Health Maintenance Results * MR Brain wo Contrast (01/20/2025 12:38 PM EDT) Anatomical Region Laterality Modality Head and Neck Magnetic Resonan ce 01/20/2025 5:24 PM EDT Narrative 01/21/2025 2:14 AM EDT MRI of the head without intravenous contrast. History dizziness, papilledema, gait disturbance, memory loss. Examination was performed on 1.5 Kristi magnet without administration of intravenous contrast. Comparison with some prior CT scan from 12/03/2024 and MRI examination from 06/28/2022. There is sulcal ventricular prominence with out of proportion dilatation of the ventricular system. There is progressed since previous examinations dilatation of the temporal horns of the lateral ventricles which raises possibility of normal pressure hydrocephalus. Fourth ventricle and basal cisterns are midline and patent. Again noted are extensive supratentorial white matter signal abnormalities involving subcortical deep and more prominent periventricular regions bilaterally. The largest confluent areas adjacent to the posterior horns of the lateral ventricles. No focal signal abnormalities were identified within the corpus callosum. There is no focal areas of restricted diffusion. There is no abnormal magnetic susceptibility artifact. Paranasal sinuses revealed mucosal thickening in the ethmoid air cells. Other paranasal sinuses and mastoid processes appear to be unremarkable. There is are 6 mm focals of increased T2 and FLAIR signal in the inferior aspect of the right parotid gland . There is 6 mm lesion with increased increased T2 and FLAIR signal in the lateral aspect of the left parotid gland. They probably represent lymphoepithelial cysts. They appear to be stable. CONCLUSIONS: Out of proportion with subcortical atrophy dilatation of the ventricular system with progressive dilatation of the temporal horns of the lateral ventricles suggestive of normal pressure hydrocephalus. Extensive supratentorial white matter signal abnormalities. Additional findings in the report. -------- FINAL REPORT -------- Dictated By: Norma Krueger Dictated Date: 01/20/2025 17:24 ET Assigned Physician: Norma Krueger Reviewed and Electronically Signed By: Norma Krueger Signed Date: 01/21/2025 02:14 ET Workstation ID: [id number] Transcribed By: Self Edit Transcribed Date: 01/20/2025 19:30 ET Procedure Note Norma Krueger MD - 01/21/2025 MRI of the head without intravenous contrast. History dizziness, papilledema, gait disturbance, memory loss. Examination was performed on 1.5 Kristi magnet without administration ofintravenous contrast. Comparison with some prior CT scan from 12/03/2024nd MRI examination from 06/28/2022. There is sulcal ventricular prominence with out of proportion dilatationof the ventricular system. There is progressed since previous examinationsdilatation of the temporal horns of the lateral ventricles which raisespossibility of normal pressure hydrocephalus. Fourth ventricle and basalcisterns are midline and patent. Again noted are extensive supratentorial white matter signal abnormalitiesinvolving subcortical deep and more prominent periventricular regionsbilaterally. The largest confluent areas adjacent to the posterior hornsof the lateral ventricles. No focal signal abnormalities were identifiedwithin the corpus callosum. There is no focal areas of restricted diffusion. There is no abnormalmagnetic susceptibility artifact. Paranasal sinuses revealed mucosalthickening in the ethmoid air cells. Other paranasal sinuses and mastoidprocesses appear to be unremarkable. There is are 6 mm focals of increased T2 and FLAIR signal in the inferioraspect of the right parotid gland . There is 6 mm lesion with increasedincreased T2 and FLAIR signal in the lateral aspect of the left parotidgland. They probably represent lymphoepithelial cysts. They appear to bestable. CONCLUSIONS: Out of proportion with subcortical atrophy dilatation of theventricular system with progressive dilatation of the temporal horns ofthe lateral ventricles suggestive of normal pressure hydrocephalus.Extensive supratentorial white matter signal abnormalities. Additionalfindings in the report. -------- FINAL REPORT -------- Dictated By: Norma Krueger Dictated Date: 01/20/2025 17:24 ET Assigned Physician: Norma Krueger Reviewed and Electronically Signed By: Norma Krueger Signed Date: 01/21/2025 02:14 ET Workstation ID: [id number] Transcribed By: Self Edit Transcribed Date: 01/20/2025 19:30 ET Shandra Harris MANUFACTURING STOREPERSON IMG MRI PROCEDURES Final Res ult * General sleep study (01/08/2025 7:54 AM EDT) us Historical Provider SLEEP CENTER ORDERABLES F inal Result * Lipid panel with reflex to direct LDL (12/20/2024 9:40 AM EDT) Cholesterol 117 0 - 200 mg/dL LAB CHEMISTRY METHOD 12/20/2024 1:[address] [facility] Triglycerides 145 0 - 150 mg/dL LAB CHEMISTRY METHOD 12/20/2024 1:[address] [facility] HDL 55 >=40 mg/dL LAB CHEMISTRY METHOD 12/20/2024 1:[address] [facility] LDL Calculated 33 0 - 100 mg/dL LAB CHEMISTRY METHOD 12/20/2024 1:[address] [facility] Comment:Estimated LDL Calcul ated using equation: Total cholesterol - HDL cholesterol - (Triglycerides/5) VLDL Cholesterol John 29 mg/dL LAB CHEMISTRY METHOD 12/20/2024 1:[address] [facility] Non HDL Chol. (LDL+VLDL) 62 <145 mg/dL LAB CHEMISTRY METHOD 12/20/2024 1:[address] [facility] Chol/HDL Ratio 2.1 0.0 - 4.4 LAB CHEMISTRY METHOD 12/20/2024 1:[address] [facility] Blood Venous blood specimen / Unknown Venipuncture / Unknown 12/20/2024 9:40 AM EDT 12/20/2024 9:40 AM EDT Crispin MASON LAB BLOOD ORDERABLES Fin al Result Performing Organization Address City/[facility]/ZIP Co de Phone Number [facility] [address] [place] [address], [place] [phone] * (ABNORMAL) Hemoglobin A1c (12/20/2024 9:40 AM EDT) [facility] Signature Hemoglobin A1C 6.5(H) <6.5 % LAB CHEMISTRY METHOD 12/20/2024 1:[address] [facility] Mean Bld Glu Estim. 140 mg/dL LAB CHEMISTRY METHOD 12/20/2024 1:[address] [facility] Blood Venous blood specimen / Unknown Venipuncture / Unknown 12/20/2024 9:40 AM EDT 12/20/2024 9:40 AM EDT us Crispin MASON LAB BLOOD ORDERABLES Fin al Result Performing Organization Address City/[facility]/ZIP Co de Phone Number [facility] [address] [place] [address], [place] [phone] * (ABNORMAL) Comprehensive metabolic panel (12/20/2024 9:40 AM EDT) Sodium 142 133 - 145 mmol/L LAB CHEMISTRY METHOD 12/20/2024 1:10 PM [facility] Potassium 4.0 3.5 - 5.5 mmol/L LAB CHEMISTRY METHOD 12/20/2024 1:10 PM [facility] Chloride 111(H) 96 - 110 mmol/L LAB CHEMISTRY METHOD 12/20/2024 1:10 PM [facility] CO2 28 21 - 32 mmol/L LAB CHEMISTRY METHOD 12/20/2024 1:10 PM [facility] Anion Gap 3 3 - 11 LAB CHEMISTRY METHOD 12/20/2024 1:10 PM [facility] Glucose 109(H) 70 - 100 mg/dL LAB CHEMISTRY METHOD 12/20/2024 1:10 PM [facility] BUN 14 5 - 25 mg/dL LAB CHEMISTRY METHOD 12/20/2024 1:10 PM [facility] Creatinine 0.91 0.70 - 1.30 mg/dL LAB CHEMISTRY METHOD 12/20/2024 1:10 PM [facility] eGFR 84 >=60 mL/min/1. 73m2 LAB CHEMISTRY METHOD 12/20/2024 1:10 PM [facility] Comment:Calculation based on the Chronic Kidney Disease Epidemiology Collaboration (CKD-EPI) equation refit without adjustment for race. BUN/Creatinine Ratio 15.4 LAB CHEMISTRY METHOD 12/20/2024 1:10 PM [facility] Calcium 8.9 8.5 - 10.5 mg/dL LAB CHEMISTRY METHOD 12/20/2024 1:10 PM [facility] AST (SGOT) 30 10 - 42 unit/L LAB CHEMISTRY METHOD 12/20/2024 1:10 PM [facility] ALT (SGPT) 37 10 - 60 unit/L LAB CHEMISTRY METHOD 12/20/2024 1:[address] [facility] Alkaline Phosphatase 66 42 - 121 unit/L LAB CHEMISTRY METHOD 12/20/2024 1:[address] [facility] Total Protein 6.8 6.0 - 8.0 g/dL LAB CHEMISTRY METHOD 12/20/2024 1:[address] [facility] Albumin 3.9 3.2 - 5.0 g/dL LAB CHEMISTRY METHOD 12/20/2024 1:[address] [facility] Total Bilirubin 0.7 0.0 - 1.4 mg/dL LAB CHEMISTRY METHOD 12/20/2024 1:[address] [facility] Blood Venous blood specimen / Unknown Venipuncture / Unknown 12/20/2024 9:40 AM EDT 12/20/2024 9:40 AM EDT us Crispin MASON LAB BLOOD ORDERABLES Fin al Result [facility] [address] [place] [address], * CT Head wo Contrast (12/03/2024 12:04 [...] Signed Date: 12/03/2024 12:54 ET Workstation ID: [id number] Transcribed By: Self Edit Transcribed Date: 12/03/2024 [...] Signed Date: 12/03/2024 12:54 ET Workstation ID: [id number] Transcribed By: Self Edit Transcribed Date: 12/03/2024 12:46 ET Shandra Harris MANUFACTURING STOREPERSON IMG CT PROCEDURES Final Resu lt * Depression Screening (08/03/2023) Pathologist [facility] Depression Screening ABSTRACTED Historical Provider HEALTH MAINTENANCE Final Result * Falls Risk Assessment (06/26/2023) [facility] Falls Risk Assessment ABSTRACTED Historical Provider HEALTH MAINTENANCE Final Result * Colonoscopy (01/20/2022) Pathologist [facility] Colonoscopy no interpretation , abstracted Anatomical Region Laterality Modality Other Historical Provider HEALTH MAINTENANCE Final Result from Last 3 Months or Most Recently Relevant to Health Maintenance Insurance MEDICARE [facility] Care Teams Senior Quality Analyst Relationship Specialty Start Date End Date Kaitlin Hair MD [address] [place] [phone] PCP - General 02/10/00
--- OUTSIDE RECORDS SUMMARY | 2025-03-04 18:33 | XMS_ITS ---
Author Organization [address] [place] [address] [place] [phone] Phone Care Team Providers Care Ram Car Operator Name Role Phone Kaitlin Hair MD Primary Care Provider [phone] Active Problems Problem Noted Date Diagnosed Date [...] foods Malignant melanoma of skin (CMS/HCC V24, [facility] V28) 09/08/2021 Overview (02/23/2024): [place] derm Ankylosing spondylitis ([facility] V24, [facility] V28 ) 11/20/2020 Overview (02/23/2024): [...] dietary modification. Myasthenia gravis without ex acerbation ([facility] V24, [facility] V28) 03/28/2006 Overview (02/23/2024): ~ 2004: On prednisone - tapered to 3 times a week follows with Dr. Lopez. Benign neoplasm of colon 11/29/2005 Overview (02/23/2024): Colonoscopy 11.29.05: tubular adenoma times two. Negative colonoscopy 12/08/2008. 7 mm polyp 02/17/2014: Malignant neoplasm of skin 11/24/2005 Overview (02/23/2024): BCC 12/16 right clavicle (nodualr & metatypical type) 05/13 Right leg Left thigh Midback IMO update Current Treatment and Therapy Plans No current plan information found. Past Treatment and Therapy Plans No past plan information found. Lifetime Dose Tracking * Chemical Lifetime Dose Automatic Entry Manual Entr y CTDIvol 64.76 mGy 64.76 mGy 0 mGy
== END 2025-03-04 15:41 | disposition home or self-care (01) ==
LOC: HO.HNS 14:10
PROVIDERS: PCP Internal Medicine; Visit Provider Physician Assistant
DX: G95.9 Disease of spinal cord, unspecified (principal)
CPT/HCPCS: 99212

== ENCOUNTER → 2025-03-04 14:09 | Outpatient (BNVA) | payer MEDICARE, SELFPAY | PROVIDERS: PCP Internal Medicine; Visit Provider Physician Assistant | DX: M54.2 Cervicalgia (principal); M50.30 Other cervical disc degeneration, unspecified cervical region | CPT/HCPCS: 99212 ==

== ENCOUNTER 2025-03-10 11:48 | Outpatient (AMB) | payer MEDICARE, SELFPAY ==
--- NOTE | 2025-03-10 12:00 | MHC.OFFVIS ---
Intake Visit Reasons: sooner appt Allergies No Known Allergies Allergy (Verified 11/07/24 10:02) Medication List - Last Reconciled 03/10/25 by Melissa Reynolds CNP aspirin 81 mg PO QAM Held on 08/22/24. Instructions: Resume on 08/29/24. 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 He had an episode of garbled speech lasting for a few seconds. EEG in office was normal. He describes chronic headache that fluctuates in severity. Some days it is more intense, while on others it is less severe. Despite treatment, he has not noted any significant change in the pattern or severity of the headaches from before starting medication. In terms of mood, the patient reports being occasionally grouchy, but his mood remains stable without significant improvement following medication trials. Previous sneezing attacks were a concern of his, characterized by sudden onset and frequent repetitions. He had first Botox injection with Dr. Lopez on 02/13/2025 for treatment of spasticity related symptoms and chronic headaches without any significant improvement in symptoms. He was following with [facility] and c-spine MRI was ordered, not yet complete. MG symptoms stable with current medications. He had CD of brain MRI done in 01/2025 at [place] to review. Balance was okay, no falls. No issues with bladder control. [facility] Medical History (Updated 03/10/25 @ 15:28 by Melissa Reynolds CNP) Depression Complex partial seizure disorder BONIFACIO on CPAP Hereditary and idiopathic neuropathy, unspecified Peripheral neuropathy Cerebral atrophy Cerebral microvascular disease Mild cognitive impairment BONIFACIO (obstructive sleep apnea) Cervical spondylolysis Arthritis Hepatitis Pure hypercholesterolemia Degenerative arthritis of cervical spine Occipital neuralgia BPH (benign prostatic hyperplasia) Ankylosing spondylitis Malignant melanoma Moderate aortic stenosis Mixed hyperlipidemia Prostate cancer Memory loss TIA (transient ischemic attack) Migraines Osteoarthritis Sleep apnea Ocular myasthenia gravis Surgical History Hx of cataract extraction History of excision of pilonidal cyst H/O colonoscopy Social History Are you a primary critical care educator to a significant other at home: No Do you presently have visiting nurse or other home services: No Comment: aware of trip hazards Patient Tobacco Use Status: Never used Tobacco Review of Systems Const Details: - Neurological: Reports chronic headache, variable in severity. - Mood: Reports occasional grouchiness; no significant changes with medication. - Respiratory: No recent reports of sneezing attacks; denies other respiratory symptoms. Physical Exam Neuro Other: Mental Status: Alert and oriented to person, place, and time. Normal attention. Normal spontaneous speech, fluency, and comprehension. No obvious issues with mood and memory. Affect is appropriate. Cranial Nerves: CN II: Visual franco full to confrontation, visual acuity intact. CN III, IV, : Pupils equal, round, reactive to light and accommodation. Extraocular movements are normal. CN V: Facial sensation is normal. CN VII: Facial movements symmetrical. CN VIII: Hearing intact to bedside conversation is normal. CN IX, X: Palate elevates symmetrically. CN XI: Shoulder shrug and head turn symmetrical. CN XII: Tongue midline without atrophy or fasciculations. Extrapyramidal: Full facial expressions and blinking. No rigidity. Movements are appropriate with no tremor or abnormality. Speech: Normal; no dysarthria or tremor. Results Reviewed Results Reviewed: CT brain WO at [place] in November 2024: Mod diff cerebellar and cerebral, central and cortical, atrophy with mild to mod MVD ACR ABs in [facility] in 2003: Blocking titer 26 (H), binding and modulating were normal. ACR ABs in in 2012 and at [facility] in 2014: [facility]: WNLCTA brain and neck at [facility] in Apr 2023: OK (reported) MRI brain WO at [facility] in Apr 2023: Mild atrophy and mild MVD (reported) NCV/EMG LE (in office) This is a normal study. 03/27/23. PSG at [facility] in May 2020: TST RYLEE 33.9, desat to 82%, snoring for 15% MRI brain WO at [facility] in Jul 2020: mod severe diff atrophy, mild to mod MVD MRI/MRV brain WO at [place] in Jun 2022: no change, MRV ok CT brain WO at [place] in Jun 2022: mod severe atrophy and mild to mod MVD. MRI brain at [place] in Jan 2025: mod severe atrophy and mild to mod MVD. Assessment & Plan Assessment & Plan (1) Myasthenia gravis: Comment: CT brain WO at [place] in November 2024: Mod diff cerebellar and cerebral, central and cortical, atrophy with mild to mod MVD ACR ABs in [facility] in 2003: Blocking titer 26 (H), binding and modulating were normal. ACR ABs in in 2012 and at [facility] in 2014: [facility] May [facility]: WNLCTA brain and neck at [facility] in Apr 2023: OK (reported) MRI brain WO at [facility] in Apr 2023: Mild atrophy and mild MVD (reported) NCV/EMG LE (in office) This is a normal study. 03/27/23. PSG at [facility] in May 2020: TST RYELE 33.9, desat to 82%, snoring for 15% MRI brain WO at [facility] in Jul 2020: mod severe diff atrophy, mild to mod MVD MRI/MRV brain WO at [place] in Jun 2022: no change, MRV ok CT brain WO at [place] in Jun 2022: mod severe atrophy and mild to mod MVD. MRI brain at [place] in Jan 2025: mod severe atrophy and mild to mod MVD. Code(s): G70.00 - Myasthenia gravis without (acute) exacerbation Category: Medical Plan: Myasthenia gravis, relatively stable on prednisone 2.5mg a day with pyridostigmine 60mg 2-3 a day. However, given ongoing chronic headache, will increase prednisone dose to 20mg once a day, use/side effects reviewed. Continue pyridostigmine 60mg 2-3 a day for MG. (2) Chronic migraine without aura: Comment: Meds tried for headaches: Tizanidine, Duloxetine, Topiramate, Propranolol Code(s): G43.709 - Chronic migraine without aura, not intractable, without status migrainosus Category: Medical Qualifiers: Intractability: intractable Status migrainosus presence: without status migrainosus Qualified Code(s): G43.719 - Chronic migraine without aura, intractable, without status migrainosus Plan: Chronic intractable daily neck pain and headache from combination of cervical spondyloarthritis (following with [facility]) and migraine. He has tried multiple medications for headaches including tizanidine, duloxetine, topiramate, propranolol, and most recently Botox with first treatment on 02/13/[address] Lopez. He has not noticed any significant improvement in symptoms following first Botox treatment. He was here with his . They were educated on Botox treatment, including what to expect from treatment (may take 4 weeks or longer to notice reduction in symptoms, and/or may require more than one treatment), and frequency of treatment. Continue Botox injections per migraine protocol. Given ongoing chronic headaches and his age, will order CRP, sed rate, and CPK r/o inflammatory or vasculitis-type conditions. He was taking prednisone 2.5mg/day for MG, will increase dose to 20mg/day to help with these symptoms, use/side effects reviewed. (3) Cervicalgia: Code(s): M54.2 - Cervicalgia Category: Medical Plan: Chronic intractable daily neck pain and headache from combination of cervical spondyloarthritis (following with [facility]) and migraine. Following with [facility] and c-spine MRI ordered, not yet completed. (4) Cerebral atrophy: Code(s): G31.9 - Degenerative disease of nervous system, unspecified Category: Medical Plan: Significant cerebral and cerebellar atrophy suggestive of a degenerative process. It is not suggestive of NPH. It can impact his all abilities, cognitive physical. CD of MRI brain at [place] in 01/2025 reviewed by myself and Dr. Lopez, significant atophy and mild to moderate MVD - not suggestive of NPH. Results reviewed with patient and his , questions answered. (5) Cerebral microvascular disease: Code(s): I67.89 - Other cerebrovascular disease Category: Medical Plan: Cerebral microvascular disease, not unusual for age, does not explain his clinical picture. CD of MRI brain at [place] in 01/2025 reviewed by myself and Dr. Lopez, significant atophy and mild to moderate MVD - not suggestive of NPH. (6) Lumbar stenosis with neurogenic claudication: Code(s): M48.062 - Spinal stenosis, lumbar region with neurogenic claudication Category: Medical Plan: Kyphosis, which has major impact on his walking and balance by shifting center of gravity. (7) Depression: Code(s): F32.A - Depression, unspecified Category: Medical Qualifiers: Depression Type: unspecified Qualified Code(s): F32.A - Depression, unspecified Plan: Continue sertraline 25mg 1 tablet daily. Plan Follow up in 4 weeks or sooner as needed. CD of MRI reviewed by myself and Dr. Lopez. Exam, findings, and plan reviewed with Dr. Lopez. Orders: Orders C Reactive Protein Today G43.E11 - Chronic migraine with aura, intractable, with status migrainosus, R51.9 - Headache, unspecified Erythrocyte Sedimentation Rate Today G43.E11 - Chronic migraine with aura, intractable, with status migrainosus, R51.9 - Headache, unspecified Creatine Kinase Total Today G43.E11 - Chronic migraine with aura, intractable, with status migrainosus, R51.9 - Headache, unspecified Medications: New prednisone 20 mg PO DAILY 30 tabs 1RF 30 days Coding Level of Care Code Est Pt Level 4 (07834) Diagnoses Myasthenia gravis G70.00 Intractable chronic migraine without aura and without status migrainosus G43.719 Intractability: intractable Status migrainosus presence: without status migrainosus Cervicalgia M54.2 Cerebral atrophy G31.9 Cerebral microvascular disease I67.89 Lumbar stenosis with neurogenic claudication M48.062 Depression, unspecified depression type F32.A Depression Type: unspecified
== END 2025-03-10 12:54 | disposition home or self-care (01) ==
LOC: HO.HSM 11:49
PROVIDERS: PCP Internal Medicine; Visit Provider Registered Nurse
DX: G70.00 Myasthenia gravis without (acute) exacerbation (principal); G43.719 Chronic migraine without aura, intractable, without status migrainosus; M54.2 Cervicalgia; G31.9 Degenerative disease of nervous system, unspecified; I67.89 Other cerebrovascular disease; M48.062 Spinal stenosis, lumbar region with neurogenic claudication; F32.A Depression, unspecified
CPT/HCPCS: 99214

== ENCOUNTER 2025-03-10 11:48 | Outpatient (REF) | payer MEDICARE, SELFPAY | END 2025-03-10 11:49 | disposition home or self-care (01) | LOC: HO.LAB 11:48 | PROVIDERS: PCP Internal Medicine; Visit Provider Registered Nurse | DX: G70.00 Myasthenia gravis without (acute) exacerbation (principal); G43.E11 Chronic migraine with aura, intractable, with status migrainosus; G31.9 Degenerative disease of nervous system, unspecified; I67.89 Other cerebrovascular disease; M48.062 Spinal stenosis, lumbar region with neurogenic claudication; F32.A Depression, unspecified; Z79.899 Other long term (current) drug therapy | CPT/HCPCS: 36415; 82550; 85652; 86140; 99212 ==

== ENCOUNTER 2025-03-23 09:10 | Outpatient (REF) | payer MEDICARE, SELFPAY ==
--- NOTE | ~2025-03-23 | MR_ITS ---
EXAMINATION: MR CERVICAL SPINE WITHOUT CONTRAST CLINICAL INFORMATION: M54.12 COMPARISON: Correlated to x-ray dated November 07, 2024. TECHNIQUE: MRI of the cervical spine was obtained using routine sequences without contrast. FINDINGS: Craniocervical junction is intact with bone marrow STIR signal abnormality on the left lateral mass of C1 and C2. Degenerative changes in the periodontal C1 region. There is normal position of the cerebellar tonsils. Incomplete ankylosis C5 C7 pronounced at C6-7 and to a lesser extent C3-4. Bone marrow inhomogeneity. Multilevel marginal osteophyte formation and disc desiccation with Modic type II endplate changes from C3 to C7. Grade 1 retrolisthesis, C3-4. Grade 1 anterolisthesis, C4-5 and C7-T1. Buckling deformity of the dorsal aspect of the thecal sac secondary to ligamentum flavum hypertrophy at C2-3, C3-4 and C7-T1 levels. Cervical spinal cord signal is normal. C2-3: Broad-based disc osteophyte complex formation. No cord compression. Left neuroforamina narrowing on a degenerative basis. C3-4: Broad-based disc osteophyte consummation hypertrophy of ligamentum flavum. CSF effacement of the thecal sac and central spinal canal stenosis. Bilateral neuroforamina narrowing. C4-5: Broad-based disc osteophyte compresses formation. Ventral deformity of the thecal sac. Left neuroforamina narrowing on a degenerative basis. C5-6: Broad-based disc osteophyte compresses formation and ligamentum flavum. CSF effacement of the thecal sac and central spinal canal stenosis. Bilateral neuroforamina stenosis. C6-7: Broad-based disc osteophyte complex formation. No cord compression. No neuroforamina stenosis. C7-T1: Broad-based disc osteophyte complex formation. No cord compression. Bilateral neuroforamina narrowing. No prevertebral compartment hematoma, mass or fluid collection. Flow-void signal within the main vessels is normal. Right vertebral artery slightly dominant. MR/MR cervical spine wo con IMPRESSION: Multilevel cervical spondylosis C3 C7 resulting in central spinal canal stenosis and likely cord compression without myelopathy or cord edema at C3-4 and C5-6 level. Acute to subacute inflammatory degenerative changes at left lateral masses of C1 and C2. Electronically signed by: Javier Fuller MD 03/24/2025 06:57 AM EST RP
--- OUTSIDE RECORDS SUMMARY | 2025-03-23 09:20 | XMS_ITS ---
Author Organization [address] [place] [address] [place] [phone] Phone Care Team Providers Care Management Coordinator Name Role Phone Kaitlin Hair MD Primary Care Provider [phone] Active Problems Problem Noted Date Diagnosed Date [...] foods Malignant melanoma of skin (CMS/HCC V24, [facility] V28) 09/08/2021 Overview (02/23/2024): [place] derm Ankylosing spondylitis ([facility] V24, [facility] V28 ) 11/20/2020 Overview (02/23/2024): [...] dietary modification. Myasthenia gravis without ex acerbation ([facility] V24, [facility] V28) 03/28/2006 Overview (02/23/2024): ~ 2004: On [...]
--- OUTSIDE RECORDS SUMMARY | 2025-03-23 09:22 | XMS_ITS | Clinical Summary ---
Author Organization [address] [place] [address] [place] [phone] Phone Care Team Providers Care Conservation Technician Name Role Phone Kaitlin Hair MD Primary Care Provider [phone] Allergies No known active allergies Medications OMEGA-3 [...] of sugary foods Malignant melanoma of skin ([facility] V24, [facility] V28) 09/08/2021 Overview (02/23/2024): [place] derm Ankylosing spondylitis ([facility] V24, [facility] V28 ) 11/20/2020 Overview (02/23/2024): Notable in [...] dietary modification. Myasthenia gravis without ex acerbation ([facility] V24, [facility] V28) 03/28/2006 Overview (02/23/2024): ~ 2005: On [...] Type Department Care Team Description 01/21/2025 Telephone Adult Medicine [place] - [address] [phone] Shandra Harris NP 01/20/2025 11:17 AM EDT - 01/20/2025 11:59 PM EDT Hospital Encounter Radiology Department - [address] [phone]; New daily persistent headache; Imbalance; Normal pressure hydrocephalus (CMS/HCC V24, CMS/HCC V28) Discharge Disposition: Home or Self Care 01/01/2025 9:50 AM EDT Office Visit [facility] [address] [facility] [address] [place] [address] Layla Latham MD Moderate aortic stenosis (Primary Dx); Preop cardiovascular exam; Postural lightheadedness; Pure hypercholesterolemia; Atypical chest pain from Last 3 Months Immunizations Immunization Administration [...] History Date Comments Myasthenia gravis without exacerbation ([facility] V24, [facility] V28) 03/28/2006 DX:Myasthenia gravis without exacerbation (HCC) Historical Medical DX DX:Other a nd unspecified malignant neoplasm of skin of other and unspecified parts of face Anxiety disorder 06/19/2007 DX:Anxiety diso rder Myasthenia gravis without exacerbation ([facility] V24, [facility] V28) 03/28/2006 DX:Myasthenia gravis without exacerbation (HCC); COMMENT: No meds, follows with Dr. Pham. Osteopenia DX:Osteopenia Ankylosing spondylitis ([facility] V24, [facility] V28) 11/20/2020 DX:Ankylosing spondylitis (H CC); COMMENT: Notable in cervical and thoracic spine on xray Malignant melanoma of skin ( [facility] V24, [facility] V28) 09/08/2021 DX:Malignant melanoma of ski n [...] 9:30 AM EST Office Visit Adult Medicine [address] [phone] Kaitlin Hair MD [address] [place] [address] 10/21/2025 10:30 AM EDT Office Visit General Surgery [address] [place] [phone] Korey Quintanilla, DO [facility] [place] [phone] 12/31/2025 11:00 AM EDT Ancillary Procedure [facility] [address] [place] [address] Health Maintenance Due Date Last Done Comments RSV Immunization Adult Patients (1 - 1-dose 75+ series) 2017 Zoster Vaccines (2 of 2) 04/04/2019 02/07/2019, 03/08 Social Influencers of Health Screening 04/16/2022 Depression Screening 05/08/2024 08/03/2023 Falls Risk Assessment 06/26/2024 06/26/2023 Medicare Annual Wellness Visit 08/02/2024 08/03/2023 COVID-19 Vaccine (9 - Pfizer risk season) 2025 02/18/2025, 02/13/2024, 02/09/2023, Additional history exists Colorectal Cancer Screening: Colonoscopy 01/20/2027 01/20/2022 Cholesterol Screening (Lipid Panel) 12/20/2029 12/20/2024, 02/13/2024, 02/13/2024 DTaP,Tdap,and Td Vaccines (5 - Td or Tdap) 06/26/2033 06/26/2023, 04/01/2013, 07/04/2002, Additional history exists Pneumococcal Vaccine: 50+ Years Completed 03/03/2017, 02/26/2016, 04/16/2007 Influenza Vaccine Completed 02/18/2025, , 02/09/2023, Additional [...] Procedure Name Priority Date/Time Associated Diagnosis Comments EXTERNAL CLINICAL LAB 03/10/2025 EXTERNAL CLINICAL LAB 03/10/2025 MR BRAIN WO CONTRAST Routine 01/20/2025 12:38 PM EDT Abnormal brain CT New daily persistent headache Imbalance Normal pressure hydrocephalus (CMS/HCC V24, CMS/HCC V28) [place] SLEEP STUDY ATTENDED Routine 01/08/2025 7:54 AM EDT LIPID PANEL WITH REFLEX TO DIRECT LDL Routine 12/20/2024 9:40 AM EDT Spinal stenosis of lumbar region, unspecified whether neurogenic claudication present 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 Pure hypercholesterolemia Prediabetes DEPRESSION SCREENING Routine 08/03/2023 FALLS RISK ASSESSMENT Routine 06/26/2023 COLONOSCOPY Routine 01/20/2022 from Last 3 Months or Most Recently Relevant to Health Maintenance Results * External clinical lab (03/10/2025) Only the most recent of2 resultswithin the time period is included. us Provider [facility] LAB BLOOD ORDERABLES Fin al Result * MR Brain wo Contrast (01/20/2025 12:38 [...] Signed Date: 01/21/2025 02:14 ET Workstation ID: [id number] Transcribed By: Self Edit Transcribed Date: 01/20/2025 [...] Signed Date: 01/21/2025 02:14 ET Workstation ID: [id number] Transcribed By: Self Edit Transcribed Date: 01/20/2025 19:30 ET Shandra Harris P[employer] IMG MRI PROCEDURES Final Res ult * General sleep study (01/08/2025 7:54 AM EDT) Historical Provider SLEEP CENTER ORDERABLES F inal Result * Lipid panel with reflex to direct LDL (12/20/2024 9:40 AM EDT) Cholesterol 117 0 - 200 mg/dL LAB CHEMISTRY METHOD 12/20/2024 1:10 PM EDT [facility] Triglycerides 145 0 - 150 mg/dL LAB CHEMISTRY METHOD 12/20/2024 1:10 PM EDT [facility] HDL 55 >=40 mg/dL LAB CHEMISTRY METHOD 12/20/2024 1:10 PM EDT [facility] LDL Calculated 33 0 - 100 mg/dL LAB CHEMISTRY METHOD 12/20/2024 1:10 PM EDT [facility] Comment:Estimated LDL Calcul ated using equation: Total cholesterol - HDL cholesterol - (Triglycerides/5) VLDL Cholesterol John 29 mg/dL LAB CHEMISTRY METHOD 12/20/2024 1:10 PM EDT [facility] Non HDL Chol. (LDL+VLDL) 62 <145 mg/dL LAB CHEMISTRY METHOD 12/20/2024 1:10 PM EDT [facility] Chol/HDL Ratio 2.1 0.0 - 4.4 LAB CHEMISTRY METHOD 12/20/2024 1:10 PM EDT [facility] Blood Venous blood specimen / Unknown Venipuncture / Unknown 12/20/2024 9:40 AM EDT 12/20/2024 9:40 AM EDT Crispin MASON LAB BLOOD ORDERABLES Fin al Result [facility] [address] [place] [address], * Depression Screening (08/03/2023) Depression Screening ABSTRACTED Historical Provider HEALTH MAINTENANCE Final Result * Falls Risk Assessment (06/26/2023) Pathologist [facility] Falls Risk Assessment ABSTRACTED Historical Provider HEALTH MAINTENANCE Final Result * Colonoscopy (01/20/2022) Pathologist [facility] Colonoscopy no interpretation , abstracted Anatomical Region Laterality Modality Other Historical Provider HEALTH MAINTENANCE Final Result from Last 3 Months or Most Recently Relevant to Health Maintenance Insurance MEDICARE [facility] Care Teams Conservation Technician Relationship Specialty Start Date End Date Kaitlin Hair MD [address] [place] [address] PCP - General 02/10/00
== END 2025-03-23 09:11 | disposition home or self-care (01) ==
LOC: HO.MRI 09:10
PROVIDERS: PCP Internal Medicine; Visit Provider Physician Assistant
DX: M54.12 Radiculopathy, cervical region (principal)
CPT/HCPCS: 72141

== ENCOUNTER → 2025-03-23 09:19 | Outpatient (BNV) | payer MEDICARE, SELFPAY | PROVIDERS: PCP Internal Medicine; Visit Provider Radiology Diagnostic Radiology | DX: M47.812 Spondylosis without myelopathy or radiculopathy, cervical region (principal); M48.02 Spinal stenosis, cervical region | CPT/HCPCS: 72141 ==

== ENCOUNTER 2025-03-31 11:17 | Outpatient (AMB) | payer MEDICARE, SELFPAY ==
--- NOTE | 2025-03-31 11:26 | HO.SPINEOV ---
Intake Visit Reasons: MRI f/u Intake Note: Mr. Boland is here today to F/u on the results to his MRI. Commercial Account Executive Required: No Allergies No Known Allergies Allergy (Verified 11/07/24 10:02) Assessment & Plan Assessment & Plan (1) Cervicalgia: Code(s): M54.2 - Cervicalgia Category: Medical Plan [place] is a pleasant 84 year old male who comes in today for MRI follow up. He was previously evaluated in clinic for posterior neck pain. He reports that his posterior neck pain has essentially remained the same since he was previously evaluated in clinic. He continues to deny any shooting pains into his shoulders or upper extremities. He denies any numbness/tingling/weakness of his hands/arms. To recap he is being worked up by Neurology for persistent migraine headaches. He has had Botox injections near the base of his skull for this issue. He reports this is still a persistent problem. We reviewed his MRI imaging which appears stable compared to previous imaging completed at [place] in 2021. No significant change noted. We discussed the continuum of treatment options for his posterior neck pain. We also discussed how some of this may be related to his migraines. He is able to lay on his side and almost completely alleviate all neck pain. He does not wake up at night in pain. Overall it sounds most like he has a mid-grade persistent ache in his posterior neck. I believe the best option for pain control and further diagnostic utility would be to have the patient attempt an injection at the worst level I am able to identify; C3-4. He does report that he has had injections by Dr. Ma in the past in his neck which he does not think were helpful. Therefore I will have our medical assistants request his injection records to see if they attempted to address this area in the past. If he has not it may be worth attempting an EMG to see if we can better identify a symptomatic segment. At this time I think we need more diagnostic evidence showing that the truly is coming from his neck, and is not some kind of referred pain from his chronic migraine issue. I will review his injection records and call him therafter with a plan going forward. Diego Sanchez MD,PhD [facility] Coding Level of Care Code Global (33952) Diagnoses Cervicalgia M54.2
--- OUTSIDE RECORDS SUMMARY | 2025-03-31 14:47 | XMS_ITS ---
Author Organization [address] [place] [address] [place] [phone] Phone Care Team Providers Care Custodial Services Manager Name Role Phone Kaitlin Hair MD Primary Care Provider [phone] Active Problems Problem Noted Date Diagnosed Date [...] foods Malignant melanoma of skin (CMS/HCC V24, [facility] V28) 09/08/2021 Overview (02/23/2024): [place] derm Ankylosing [place] [place] [facility] V28 ) 11/20/2020 Overview (02/23/2024): [...] dietary modification. Myasthenia gravis without ex acerbation ([facility] [place], [facility] [place] 03/28/2006 Overview (02/23/2024): ~ 2004: On [...]
--- OUTSIDE RECORDS SUMMARY | 2025-03-31 14:47 | XMS_ITS | Clinical Summary ---
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 Myasthenia gravis without ex acerbation (CMS/[facility] V24, CMS/[facility] V28) 03/28/2006 Overview (02/23/2024): ~ 2005: On [...] Care Team Description 01/21/2025 Telephone Adult [facility] - [address] [phone] Shandra Harris NP 01/20/2025 11:17 AM EDT - 01/20/2025 11:59 PM EDT Hospital Encounter Radiology Department - [address] [phone]; New daily persistent headache; Imbalance; Normal pressure hydrocephalus (CMS/HCC V24, CMS/HCC V28) Discharge Disposition: Home or Self Care 01/01/2025 9:50 AM EDT Office Visit [facility] [address] [facility] [address] [place] [address] Layla Latham MD Moderate aortic [...] History Date Comments Myasthenia gravis without exacerbation ([facility] V24, [facility] V28) 03/28/2006 DX:Myasthenia gravis without exacerbation (HCC) Historical Medical DX DX:Other a nd unspecified malignant neoplasm of skin of other and unspecified parts of face Anxiety disorder 06/19/2007 DX:Anxiety diso rder Myasthenia gravis without exacerbation ([facility] V24, [facility] V28) 03/28/2006 DX:Myasthenia gravis without exacerbation (HCC); COMMENT: No meds, follows with Dr. Pham. Osteopenia DX:Osteopenia Ankylosing spondylitis ([facility] V24, [facility] V28) 11/20/2020 DX:Ankylosing spondylitis (H CC); COMMENT: Notable in cervical and thoracic spine on xray Malignant melanoma of skin ( [facility] V24, [facility] V28) 09/08/2021 DX:Malignant melanoma of ski n [...] 9:30 AM EST Office Visit Adult Medicine [address] [phone] Kaitlin Hair MD [address] [place] [address] 10/21/2025 10:30 AM EDT Office Visit General Surgery [address] [place] [phone] Korey Quintanilla, DO [facility]ly [facility] [phone] 12/31/2025 11:00 AM EDT Ancillary Procedure [facility] [address] [place] [address] Health Maintenance Due Date Last [...] Normal pressure hydrocephalus (CMS/HCC V24, CMS/HCC V28) MT SLEEP STUDY ATTENDED Routine 01/08/2025 7:54 AM [...] Signed Date: 01/21/2025 02:14 ET Workstation ID: [id number] Transcribed By: Self Edit Transcribed Date: 01/20/2025 [...] Signed Date: 01/21/2025 02:14 ET Workstation ID: [id number] Transcribed By: Self Edit Transcribed Date: 01/20/2025 19:30 ET 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 PROCEDURES Final Res ult * General sleep study (01/08/2025 7:54 AM EDT) Historical Provider SLEEP CENTER ORDERABLES F inal Result * Lipid panel with reflex to direct LDL (12/20/2024 9:40 AM EDT) Cholesterol 117 0 - 200 mg/dL LAB CHEMISTRY METHOD 12/20/2024 1:10 PM EDT [facility] Triglycerides 145 0 - 150 mg/dL LAB CHEMISTRY METHOD 12/20/2024 1:10 PM EDT [facility] HDL 55 >=40 mg/dL LAB CHEMISTRY METHOD 12/20/2024 1:10 PM EDT [facility] LDL Calculated 33 0 - 100 mg/dL LAB CHEMISTRY METHOD 12/20/2024 1:10 PM EDT [facility] Comment:Estimated LDL Calcul ated using equation: Total cholesterol - HDL cholesterol - (Triglycerides/5) VLDL Cholesterol John 29 mg/dL LAB CHEMISTRY METHOD 12/20/2024 1:10 PM EDT [facility] Non HDL Chol. (LDL+VLDL) 62 <145 mg/dL LAB CHEMISTRY METHOD 12/20/2024 1:10 PM EDT [facility] Chol/HDL Ratio 2.1 0.0 - 4.4 LAB CHEMISTRY METHOD 12/20/2024 1:10 PM EDT [facility] Blood Venous blood specimen / Unknown Venipuncture / Unknown 12/20/2024 9:40 AM EDT 12/20/2024 9:40 AM EDT Crispin MASON LAB BLOOD ORDERABLES Fin al Result [facility] [address] [place] [address], * Depression Screening (08/03/2023) Depression Screening ABSTRACTED Historical Provider HEALTH MAINTENANCE Final Result * Falls Risk Assessment (06/26/2023) Pathologist [facility] Falls Risk Assessment ABSTRACTED Historical Provider HEALTH MAINTENANCE Final Result * Colonoscopy (01/20/2022) Pathologist [facility] Colonoscopy no interpretation , abstracted Anatomical Region Laterality Modality Other Historical Provider HEALTH MAINTENANCE Final Result from Last 3 Months or Most Recently Relevant to Health Maintenance Insurance MEDICARE [facility] Care Teams Leather Colorer Relationship Specialty Start Date End Date Kaitlin Hair MD [address] [place] [address] PCP - General 02/10/00
== END 2025-03-31 12:14 | disposition home or self-care (01) ==
LOC: HO.HNS 11:18
PROVIDERS: PCP Internal Medicine; Visit Provider Physician Assistant
DX: M54.2 Cervicalgia (principal)
CPT/HCPCS: 99213

== ENCOUNTER → 2025-03-31 11:17 | Outpatient (BNVA) | payer MEDICARE, SELFPAY | PROVIDERS: PCP Internal Medicine; Visit Provider Physician Assistant | DX: M54.2 Cervicalgia (principal) | CPT/HCPCS: 99212 ==

== ENCOUNTER 2025-04-14 09:12 | Outpatient (AMB) | payer MEDICARE, SELFPAY ==
--- NOTE | 2025-04-14 09:37 | A.OFFVIS_ITS ---
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 He is presenting for management of chronic headaches. He reports having headaches almost every day, with severity ranging from mild to severe. He also has arthritis in his neck, which can cause a concurrent headache. The patient has tried several medications without success. He discontinued propranolol because it made him feel worse and caused thoughts of dying, though he denied suicidal intent. He also stopped sertraline (Zoloft) because it made him feel funny. An increase in his prednisone dose to 20 mg did not help his headaches, and he has since been taking prednisone 2.5 mg. Botox treatments also did not provide adequate relief. The patient reports generalized stiffness and that his legs and hips don't cooperate much. [facility] Medical History (Updated 04/14/25 @ 09:50 by Shantanu Lopez MD) Depression Complex partial seizure disorder BONIFACIO on CPAP Hereditary and idiopathic neuropathy, unspecified Peripheral neuropathy Cerebral atrophy Cerebral microvascular disease Mild cognitive impairment BONIFACIO (obstructive sleep apnea) Cervical spondylolysis Arthritis Hepatitis Pure hypercholesterolemia Degenerative arthritis of cervical spine Occipital neuralgia BPH (benign prostatic hyperplasia) Ankylosing spondylitis Malignant melanoma Moderate aortic stenosis Mixed hyperlipidemia Prostate cancer Memory loss TIA (transient ischemic attack) Migraines Osteoarthritis Sleep apnea Ocular myasthenia gravis Surgical History Hx of cataract extraction History of excision of pilonidal cyst H/O colonoscopy Social History Are you a primary customer care consultant to a significant other at home: No Do you presently have visiting nurse or other home services: No Comment: aware of trip hazards Patient Tobacco Use Status: Never used Tobacco Review of Systems Narrative - Neurological: Reports near-daily headaches of varying intensity. - Musculoskeletal: Reports arthritis in the neck. - Reports generalized stiffness and that his legs and hips do not cooperate well. - Psychiatric: Reports history of thoughts of dying while taking propranolol, but denies suicidal ideation. Physical Exam Neuro Other: Mental Status: Alert and oriented to person, place, and time. Normal attention. Normal spontaneous speech, fluency, and comprehension. Cranial Nerves: CN II: Visual franco full to confrontation, visual acuity intact. CN III, IV, : Pupils equal, round, reactive to light and accommodation. Extraocular movements are normal. CN V: Facial sensation is normal. CN VII: Facial movements symmetrical. CN VIII: Hearing intact to bedside conversation is normal. CN IX, X: Palate elevates symmetrically. CN XI: Shoulder shrug and head turn symmetrical. CN XII: Tongue midline without atrophy or fasciculations. Extrapyramidal: Full facial expressions and blinking. No rigidity. Movements are appropriate with no tremor or abnormality. Speech: Normal; no dysarthria or tremor. Results Reviewed Results Reviewed: Laboratory Tests 08/04/20 03/10/25 09:03 13:14 ESR 3 Total Creatine Kinase 150 C-Reactive Protein < 0.04 Vitamin B12 400 Folate > 20.0 Assessment & Plan Assessment & Plan (1) Migraines: Code(s): G43.909 - Migraine, unspecified, not intractable, without status migrainosus Category: Medical Qualifiers: Migraine type: chronic migraine (15 or more days per month) with aura Status migrainosus presence: with status migrainosus Intractability: intractable Qualified Code(s): G43.E11 - Chronic migraine with aura, intractable, with status migrainosus (2) Cervicalgia: Code(s): M54.2 - Cervicalgia Category: Medical (3) Myasthenia gravis: Comment: CT brain WO at [place] in November 2024: Mod diff cerebellar and cerebral, central and cortical, atrophy with mild to mod MVD ACR ABs in [facility] labs in 2003: Blocking titer 26 (H), binding and modulating were normal. ACR ABs in in 2012 and at [facility] in 2014: WNL EEG at off in May 2023: WNLCTA brain and neck at [facility] in Apr 2023: OK (reported) MRI brain WO at [facility] in Apr 2023: Mild atrophy and mild MVD (reported) NCV/EMG LE (in office) This is a normal study. 03/27/23. PSG at [facility] in May 2020: TST RYLEE 33.9, desat to 82%, snoring for 15% MRI brain WO at [facility] in Jul 2020: mod severe diff atrophy, mild to mod MVD MRI/MRV brain WO at [place] in Jun 2022: no change, MRV ok CT brain WO at [place] in Jun 2022: mod severe atrophy and mild to mod MVD. MRI brain at [place] in Jan 2025: mod severe atrophy and mild to mod MVD. Code(s): G70.00 - Myasthenia gravis without (acute) exacerbation Category: Medical (4) Lumbar stenosis with neurogenic claudication: Code(s): M48.062 - Spinal stenosis, lumbar region with neurogenic claudication Category: Medical (5) Chronic daily headache: Code(s): R51.9 - Headache, unspecified Category: Medical (6) Kyphosis (acquired) (postural): Code(s): M40.00 - Postural kyphosis, site unspecified Category: Medical (7) Chronic migraine without aura: Comment: Meds tried for headaches: Tizanidine, Duloxetine, Topiramate, Propranolol, Botox Code(s): G43.709 - Chronic migraine without aura, not intractable, without status migrainosus Category: Medical Qualifiers: Status migrainosus presence: without status migrainosus Intractability: intractable Qualified Code(s): G43.719 - Chronic migraine without aura, intractable, without status migrainosus (8) MCI (mild cognitive impairment): Code(s): G31.84 - Mild cognitive impairment of uncertain or unknown etiology Category: Medical Plan Impression: a: Antibody positive Myasthenia Gravis b: Chronic multifactorial head and neck pain c: Chronic intractable migraine w/o aura d: Cervical spondyloarthritis e: Signficant kyphosis f: BONIFACIO on CPAP g: Lumbar spinal stenosis h: Mild cognitive impairment i: Significant diffuse brain atrophy with mild MVD though he did not feel any significant cognitive issues Management: a: Prednisone 2.5mg one a day b: Pyridostigmine 60mg 2-3 a day c: Will try Depakote 250mg one at bedtime. If this will not work, CGRP inhibitors will be tried. I discussed the patient's ongoing chronic headaches and the ineffectiveness of past treatments, including Botox injections. We decided to discontinue Botox, and I advised him to cancel his next appointment for it. I have prescribed a new medication, Depakote, to be taken once at bedtime for a trial period of four weeks. I will send this prescription to his local [facility] pharmacy and provide refills for his prednisone 2.[address] [facility]. I instructed the patient to contact me via message if there is no improvement after one month on the new medication. We will have a follow-up visit in a couple of months to assess his response to treatment. Medications: New divalproex 250 mg orally one at bedtime; 30 tabs 1RF Refilled prednisone 2.5 mg PO DAILY 90 tabs 0RF Discontinued sertraline Discontinued Reason: Doctor's Order 25 mg PO DAILY 90 tabs 0RF propranolol Discontinued Reason: Doctor's Order 10 mg PO BID 180 tabs 0RF onabotulinumtoxinA (Botox) Discontinued Reason: Doctor's Order 200 units intramuscularly Every 3 months; 90 days 1 ea 3RF prednisone Discontinued Reason: Doctor's Order 20 mg PO DAILY 30 days 30 tabs 1RF Coding Level of Care Code Est Pt Level 4 (34961) Diagnoses Intractable chronic migraine with aura with status migrainosus G43.E11 Migraine type: chronic migraine (15 or more days per month) with aura Status migrainosus presence: with status migrainosus Intractability: intractable Cervicalgia M54.2 Myasthenia gravis G70.00 Lumbar stenosis with neurogenic claudication M48.062 Chronic daily headache R51.9 Kyphosis (acquired) (postural) M40.00 Intractable chronic migraine without aura and without status migrainosus G43.719 Status migrainosus presence: without status migrainosus Intractability: intractable MCI (mild cognitive impairment) G31.84
== END 2025-04-14 09:55 | disposition home or self-care (01) ==
LOC: HO.HSM 09:12
PROVIDERS: PCP Internal Medicine; Visit Provider Psychiatry & Neurology Neurology
DX: G43.E11 Chronic migraine with aura, intractable, with status migrainosus (principal); M54.2 Cervicalgia; G70.00 Myasthenia gravis without (acute) exacerbation; M48.062 Spinal stenosis, lumbar region with neurogenic claudication; R51.9 Headache, unspecified; M40.00 Postural kyphosis, site unspecified; G43.719 Chronic migraine without aura, intractable, without status migrainosus; G31.84 Mild cognitive impairment of uncertain or unknown etiology
CPT/HCPCS: 99214

== ENCOUNTER → 2025-04-14 09:12 | Outpatient (BNVA) | payer MEDICARE, SELFPAY | PROVIDERS: PCP Internal Medicine; Visit Provider Psychiatry & Neurology Neurology | DX: G43.E11 Chronic migraine with aura, intractable, with status migrainosus (principal); G31.84 Mild cognitive impairment of uncertain or unknown etiology; M40.00 Postural kyphosis, site unspecified; M48.062 Spinal stenosis, lumbar region with neurogenic claudication; G70.00 Myasthenia gravis without (acute) exacerbation; M54.2 Cervicalgia | CPT/HCPCS: 99212 ==

== ENCOUNTER 2025-04-15 10:57 | Outpatient (AMB) | payer MEDICARE, SELFPAY ==
[2025-04-15 11:02] VITALS: BMI 24.3
--- NOTE | 2025-04-15 11:02 | A.PHYSOV ---
Vital Signs 04/15/25 11:02 Height 5 ft 8 in Weight 160 lb BMI 24.3 Intake Visit Reasons: [facility] ref-neck pain Intake Note: Patient is a 84 year old male in office today for a follow up visit on neck pain. Allergies No Known Allergies Allergy (Verified 04/15/25 11:01) HPI Comments Details: History of Present Illness The patient is an 84-year-old male presenting for a follow-up visit for persistent neck pain, cervicogenic headaches, lower back pain, and lumbar radiculitis. A cervical spine MRI from March 23, 2025, revealed central spinal canal stenosis from C3 through C7, which is particularly severe at the C3-C4 and C5-C6 levels, along with neuroforaminal stenosis at multiple levels. He was subsequently evaluated by neurology and a neurosurgical team, with the latter recommending an injection at the C3-C4 level before considering surgery. Past pain management has included trials of tramadol and buprenorphine patches, both of which were ineffective. Previous procedures, including greater occipital nerve blocks, two C6-C7 interlaminar injections in 2022, and left C2-C3 and C3-C4 facet injections on December 04, 2023, also did not provide help. The patient also has a history of headaches managed by Dr. Lopez, which occur with his neck pain upon waking. Treatments have included Botox, which was not effective, and he is currently taking prednisone and Divalproex (Depakote), which was recently prescribed. Dr. Lopez considers CGRP inhibitors. He has a remote history of lumbar spinal stenosis and lumbar radiculitis for which he underwent surgery with Dr. Sanchez. He was recently seen by neurosurgical team for persistent cervical symptoms. They thought his pain is primarily originates from the C3-C4 level. Left C2-C3 and C3-C4 facet injections were previously trialed without success. They recommended trial of C3-C4 transforaminal injection for diagnostic purposes primarily to see if he could be a candidate for C3-C4 ACDF. Pain Description - Location: The patient reports neck pain located down the middle of his neck. - Quality and Severity: Pain intensity varies from mild to severe, at times being severe enough to 'knock me off my feet'. - Associated Symptoms: The neck pain is associated with headaches. - Exacerbating Factors: Pain is triggered upon getting out of bed in the morning and is worsened by sleeping on his right side. - Relieving Factors: Pain is alleviated by using a neck brace while lying on his back and by sleeping on his left side. Results - Cervical Spine MRI (03/23/2025): Findings were consistent with central spinal canal stenosis at C3 through C7, which was particularly severe at C3-C4 and C5-C6 levels, and neuroforaminal stenosis of various degrees at multiple levels. [facility] Medical History (Updated 04/15/25 @ 11:26 by Henry Ma DO) Cervical spinal stenosis Depression Complex partial seizure disorder BONIFACIO on CPAP Hereditary and idiopathic neuropathy, unspecified Peripheral neuropathy Cerebral atrophy Cerebral microvascular disease Mild cognitive impairment BONIFACIO (obstructive sleep apnea) Cervical spondylolysis Arthritis Hepatitis Pure hypercholesterolemia Degenerative arthritis of cervical spine Occipital neuralgia BPH (benign prostatic hyperplasia) Ankylosing spondylitis Malignant melanoma Moderate aortic stenosis Mixed hyperlipidemia Prostate cancer Memory loss TIA (transient ischemic attack) Migraines Osteoarthritis Sleep apnea Ocular myasthenia gravis Surgical History (Updated 04/15/25 @ 11:03 by Brigette Rosenbaum MA) History of back surgery Hx of cataract extraction History of excision of pilonidal cyst H/O colonoscopy Social History (Updated 04/14/25 @ 12:29 by Brigette Rosenbaum MA) Are you a primary care management associate to a significant other at home: No Do you presently have visiting nurse or other home services: No Alcohol intake: current Comment: aware of trip hazards Patient Tobacco Use Status: Never used Tobacco Current occupational status: retired Review of Systems Narrative Review of Systems - Musculoskeletal: Reports neck pain and lower back pain. - Neurological: Reports headaches. Denies change in bowel bladder habits, denies fever or chills. Physical Exam Exam Exam: Physical Exam Patient appears to be in no acute distress, appropriately conversant oriented. Gait was slow without antalgia. Heel walk and toe walk were not tested. Lumbar extension was restricted, forward flexed posture. Cervical range of motion was restricted in all planes. Spurling maneuver was negative. Lhermitte's sign was negative. Neurological examination of upper extremities was nonfocal. Patient demonstrated no upper motor neuron signs. Vital Signs: BMI result Body Mass Index 24.3 Assessment & Plan Assessment & Plan (1) Lumbar stenosis with neurogenic claudication: Code(s): M48.062 - Spinal stenosis, lumbar region with neurogenic claudication Category: Medical (2) Cervical radiculopathy: Code(s): M54.12 - Radiculopathy, cervical region Category: Medical (3) Cervical spinal stenosis: Code(s): M48.02 - Spinal stenosis, cervical region Category: Medical Plan Pain Management - Analgesia: Past medication trials with tramadol and buprenorphine patches were ineffective. - currently receiving care from Neurology for headaches and myasthenia gravis. - Activities of Daily Living: The pain starts upon getting out of bed and can be severe enough to 'knock him off his feet'. Plan Patient was informed and verbally consented to the use of an ambient scribe for clinic note documentation during this visit. 1. Cervical Spinal Stenosis With Cervicalgia The patient has severe cervical spinal stenosis confirmed by a recent MRI, and prior treatments have been ineffective. Per neurosurgical recommendation, a diagnostic injection is warranted to identify the pain generator before considering operative intervention. A left C4 transforaminal injection will be scheduled at [facility] to serve as a diagnostic tool. The patient was counseled that even short-term relief from the injection is an important finding for the neurosurgical team. 2. Cervicogenic Headache The patient reports ongoing headaches associated with his neck pain, managed by neurology. Prior Botox was ineffective, and he currently takes prednisone and Divalproex. He will continue management with his neurologist, Dr. Lopez. Discussion Notes I reviewed the patient's recent cervical spine MRI findings, which showed severe central spinal canal stenosis at C3-C7, and noted his evaluations by neurology and neurosurgery. We discussed that previous interventions, including multiple types of injections and pain medications, had failed to provide relief. I explained that the neurosurgery team has recommended a diagnostic injection at the C3-C4 level to determine the source of his pain before considering surgery. I counseled him that the injection is intended as a diagnostic tool and is not expected to provide long-term relief. I emphasized that any short-term relief is a significant finding that he will need to report to the neurosurgeons to help guide their decision-making. The patient understood the rationale and consented to a left C4 transforaminal injection, which will be scheduled at the [facility] facility. Risks and benefits of the procedure were discussed with the patient. Potential alternative measures were also discussed. Patient understands that the procedure is completely elective. Potential side effects associated with injectable medications were discussed. All questions were answered to the patient's satisfaction. Patient Instructions - We have scheduled a left-sided neck injection (left C4 transforaminal injection) to help determine the source of your neck pain. - This procedure will be performed at the [facility], and their office will call you to schedule the appointment. - The purpose of this injection is to see if it provides even temporary relief. This information is very important for the neurosurgery team to decide if surgery is the right option for you. - Please let the neurosurgery team know how you feel after the injection. - Continue to see your neurologist, Dr. Maldonado, for management of your headaches. Orders: Referrals Physiatry Procedure Notification M48.02 - Spinal stenosis, cervical region, M54.12 - Radiculopathy, cervical region Coding Level of Care Code Est Pt Level 4 (94738) Complex visit Add On G2211 Diagnoses Lumbar stenosis with neurogenic claudication M48.062 Cervical radiculopathy M54.12 Cervical spinal stenosis M48.02
== END 2025-04-15 11:27 | disposition home or self-care (01) ==
LOC: HO.HPHYS 10:57
PROVIDERS: PCP Internal Medicine; Visit Provider Physical Medicine & Rehabilitation
DX: M48.062 Spinal stenosis, lumbar region with neurogenic claudication (principal); M54.12 Radiculopathy, cervical region; M48.02 Spinal stenosis, cervical region
CPT/HCPCS: 99214; G2211

== ENCOUNTER → 2025-04-15 10:57 | Outpatient (BNVA) | payer MEDICARE, SELFPAY | PROVIDERS: PCP Internal Medicine; Visit Provider Physical Medicine & Rehabilitation | DX: M48.062 Spinal stenosis, lumbar region with neurogenic claudication (principal); M54.12 Radiculopathy, cervical region; M48.02 Spinal stenosis, cervical region | CPT/HCPCS: 99212 ==